=== PATIENT | female | born 1930 | race Caucasian/White ===

== ENCOUNTER → 2017-06-19 | Outpatient (CLI) | payer MEDICARE ==
--- NOTE | 2017-06-19 13:47 | KCIC ---
Examination: Ultrasound kidneys HISTORY: History of chronic kidney disease stage IV COMPARISON: None available FINDINGS: The right kidney measures 8.1 x 4.8 x 4.2 cm The left kidney measures 8.9 x 4.1 x 3.8 cm In the left kidney, there is a 2.2 cm hyperechoic focus identified in the lateral inferior left kidney without significant vascular flow could be extension of renal medulla into the cortex or a angiomyolipoma or a hyperechoic lesion. Urinary bladder is mildly distended IMPRESSION: 1. No evidence of hydronephrosis. 2. 2.2 cm hyperechogenicity identified in the inferior aspect of the left kidney could be extension of the renal medulla to the cortex or a angiomyolipoma or a hyperechoic lesion. Recommend CT without and with IV contrast if clinically feasible. If CT cannot be performed with IV contrast, consider follow-up ultrasound to document stability. Electronically signed by: Suraj Ford MD (06/19/2017 1:44 PM) [id number]
== END | disposition home or self-care (01) ==
LOC: KCIC US 11:03
PROVIDERS: ATTEND Internal Medicine Nephrology
DX: N18.4 Chronic kidney disease, stage 4 (severe) (principal)
CPT/HCPCS: 76770

== ENCOUNTER 2018-11-15 06:34 | Emergency (ER) | payer MEDICARE ==
[~2018-11-15] VITALS: Ht 165.1 cm; Wt 50.8 kg
[2018-11-15] MEDS ORDERED: ONDANSETRON PF 4 MG/2 ML VIAL. IV ONE (07:00)
[2018-11-15] MEDS ORDERED: IV NORMAL SALINE 1000ML BAG 1,000 ML IV SCH (07:00)
[2018-11-15 07:52] LABS: BASO % 0 % (0-3); EOS % 0 % (0-3); HEMATOCRIT 43.9 % (36.0-47.0); HEMOGLOBIN 14.3 g/dL (12.0-15.5); LYMPH # 0.4 x10^3/uL (1.0-4.8); LYMPH % 7 % (24-48); MEAN CORPUSCULAR HEMOGLOBIN 26 pg (25-35); MEAN CORPUSCULAR HGB CONC 33 g/dL (31-37); MEAN CORPUSCULAR VOLUME 81 fL (79-100); MONO # 0.3 x10^3/uL (0.0-1.1); MONO % 6 % (0-9); NEUT # 5.2 x10^3uL (1.8-7.7); NEUT % 88 % (31-73); PLATELET COUNT 179 x10^3/uL (140-400); RED BLOOD COUNT 5.46 x10^6/uL (3.50-5.40); RED CELL DISTRIBUTION WIDTH 14.5 % (11.5-14.5); WHITE BLOOD COUNT 5.9 x10^3/uL (4.0-11.0)
[2018-11-15 08:03] LABS: CALCIUM 9.1 mg/dL (8.5-10.1); CREATININE 0.8 mg/dL (0.6-1.0); GFR 67.7; POTASSIUM 3.9 mmol/L (3.5-5.1)
[2018-11-15 08:15] LABS: ALBUMIN 3.8 g/dL (3.4-5.0); ALBUMIN/GLOBULIN RATIO 1.2 (1.0-1.7); TOTAL BILIRUBIN 0.7 mg/dL (0.2-1.0); TOTAL PROTEIN 7.1 g/dL (6.4-8.2)
[2018-11-15 08:37] LABS: BILIRUBIN,URINE SMALL (NEG); CLARITY,URINE CLOUDY; COLOR,URINE YELLOW; NITRITE,URINE POSITIVE (NEG); PROTEIN,URINE 30 mg/dL (NEG-TRACE); UROBILINOGEN,URINE 0.2 mg/dL (0.2 mg/dL)
[2018-11-15 08:44] LABS: BACTERIA,URINE MANY /HPF (0-FEW)
[2018-11-15 08:45] LABS: WBC,URINE >40 /HPF (0-4)
[2018-11-15 08:50] LABS: % ATYL 1 % (0-0); % LYMPHS 10 % (24-48); % MONOS 4 % (0-10); % SEGS 85 % (35-66); PLT ESTIMATE ADEQUATE (ADEQUATE); TOXIC VACUOLATION SLIGHT
[2018-11-15] MEDS ORDERED: cefTRIAXone IV Push 1 GM VIAL. IVP ONE (09:00)
[2018-11-15] MEDS ORDERED: DIPHENOXYLATE/ATROPINE TABLET. PO ONE (09:15)
[2018-11-15 09:30] VITALS: BP 156/80
[2018-11-15] MEDS ORDERED: ONDA4TAB7 PO (10:25)
[2018-11-15] MEDS ORDERED: NITR100C62 PO (10:25)
[2018-11-15] MEDS ORDERED: DIPH1TAB PO (10:25)
--- NOTE | 2018-11-15 10:25 | PHYS DOC ---
Past Medical History Past Medical History: GERD, Hypertension Additional Past Medical Histor: NEUROPATHY, RLS Past Surgical History: No Surgical History Alcohol Use: None Drug Use: None Adult General Chief Complaint Chief Complaint: ABDOMINAL PAIN HPI HPI Patient is an 87-year-old female who presents with complaint of nausea with vomiting and diarrhea that started on Sunday. Patient states that symptoms have just gotten to the point where she is feeling very weak and she states that she is not able to keep any food or fluids down. She also states that she has had a little bit of lower abdominal discomfort but it is mild. She does not believe that she has been running a fever. She denies any chest pain or shortness of breath. She also denies any lower back pain. She states the symptoms are worsened with eating or drinking. Review of Systems Review of Systems Constitutional: Denies fever or chills [] Respiratory: Denies cough or shortness of breath [] Cardiovascular: No additional information not addressed in HPI [] GI: Complains of lower abdominal discomfort with nausea, vomiting and diarrhea [ ] : Denies dysuria or hematuria [] Musculoskeletal: Denies back pain or joint pain [] All other systems were reviewed and found to be within normal limits, except as documented in this note. Current Medications Current Medications Current Medications Medications (Trade) Dose Ordered Sig/Glen Start Time Stop Time Status Last Admin Dose Admin Ceftriaxone Sodium (Rocephin) 1 gm 1X ONCE 11/15/18 09:00 11/15/18 09:05 DC 11/15/18 09:45 1 GM Diphenoxylate HCl/ Atropine (Lomotil) 2 tab 1X ONCE 11/15/18 09:15 11/15/18 09:16 DC 11/15/18 09:44 2 TAB Ondansetron HCl (Zofran) 4 mg 1X ONCE 11/15/18 07:00 11/15/18 07:01 DC 11/15/18 07:29 4 MG Sodium Chloride 1,000 ml @ 1,000 mls/hr Q1H 11/15/18 07:00 11/15/18 07:59 DC 11/15/18 07:00 1,000 MLS/HR Allergies Allergies Allergies Coded Allergies Type Severity Reaction Last Updated Verified Sulfa (Sulfonamide Antibiotics) Allergy Unknown 11/15/18 Yes codeine Allergy Unknown 11/15/18 Yes metronidazole Allergy Unknown 11/15/18 Yes Physical Exam Physical Exam Constitutional: Well developed, well nourished, no acute distress, non-toxic appearance. [] HENT: Normocephalic, atraumatic, bilateral external ears normal, oropharynx dry , no oral exudates, nose normal. [] Eyes: PERRLA, EOMI, conjunctiva normal, no discharge. [] Neck: Normal range of motion, no tenderness, supple, no stridor. [] Cardiovascular: Regular rate and rhythm [] Lungs & Thorax: Bilateral breath sounds clear to auscultation [] Abdomen: Bowel sounds normal, soft, no tenderness. [] Skin: Warm, dry, no erythema, no rash. [] Extremities: No tenderness, no cyanosis, no clubbing, ROM intact, no edema. [] Neurologic: Alert and oriented X 3, no focal deficits noted. [] Current Patient Data Vital Signs Vital Signs Date Time Temp Pulse Resp B/P (MAP) Pulse Ox O2 Delivery O2 Flow Rate FiO2 11/15/18 09:30 102 156/80 (105) 96 Room Air 11/15/18 06:47 98.0 18 98.0 Lab Values Laboratory Tests Test 11/15/18 07:40 11/15/18 08:25 White Blood Count 5.9 x10^3/uL (4.0-11.0) Red Blood Count 5.46 x10^6/uL (3.50-5.40) H Hemoglobin 14.3 g/dL (12.0-15.5) Hematocrit 43.9 % (36.0-47.0) Mean Corpuscular Volume 81 fL (79-100) Mean Corpuscular Hemoglobin 26 pg (25-35) Mean Corpuscular Hemoglobin Concent 33 g/dL (31-37) Red Cell Distribution Width 14.5 % (11.5-14.5) Platelet Count 179 x10^3/uL (140-400) Neutrophils (%) (Auto) 88 % (31-73) H Lymphocytes (%) (Auto) 7 % (24-48) L Monocytes (%) (Auto) 6 % (0-9) Eosinophils (%) (Auto) 0 % (0-3) Basophils (%) (Auto) 0 % (0-3) Neutrophils # (Auto) 5.2 x10^3uL (1.8-7.7) Lymphocytes # (Auto) 0.4 x10^3/uL (1.0-4.8) L Monocytes # (Auto) 0.3 x10^3/uL (0.0-1.1) Eosinophils # (Auto) 0.0 x10^3/uL (0.0-0.7) Basophils # (Auto) 0.0 x10^3/uL (0.0-0.2) Segmented Neutrophils % 85 % (35-66) H Lymphocytes % 10 % (24-48) L Atypical Lymphocytes % (Manual) 1 % (0-0) H Monocytes % 4 % (0-10) Toxic Vacuolation Slight Platelet Estimate Adequate (ADEQUATE) Sodium Level 143 mmol/L (136-145) Potassium Level 3.9 mmol/L (3.5-5.1) Chloride Level 103 mmol/L (98-107) Carbon Dioxide Level 28 mmol/L (21-32) Anion Gap 12 (6-14) Blood Urea Nitrogen 15 mg/dL (7-20) Creatinine 0.8 mg/dL (0.6-1.0) Estimated GFR (Cockcroft-Gault) 67.7 BUN/Creatinine Ratio 19 (6-20) Glucose Level 115 mg/dL (70-99) H Calcium Level 9.1 mg/dL (8.5-10.1) Total Bilirubin 0.7 mg/dL (0.2-1.0) Aspartate Amino Transferase (AST) 13 U/L (15-37) L Alanine Aminotransferase (ALT) 12 U/L (14-59) L Alkaline Phosphatase 77 U/L (46-116) Total Protein 7.1 g/dL (6.4-8.2) Albumin 3.8 g/dL (3.4-5.0) Albumin/Globulin Ratio 1.2 (1.0-1.7) Lipase 50 U/L (73-393) L Urine Collection Type Unknown Urine Color Yellow Urine Clarity Cloudy Urine pH 6.0 Urine Specific Blount 1.020 Urine Protein 30 mg/dL (NEG-TRACE) Urine Glucose (UA) Negative mg/dL (NEG) Urine Ketones (Stick) Trace mg/dL (NEG) Urine Blood Moderate (NEG) Urine Nitrite Positive (NEG) Urine Bilirubin Small (NEG) Urine Urobilinogen Dipstick 0.2 mg/dL (0.2 mg/dL) Urine Leukocyte Esterase Large (NEG) Urine RBC 3-5 /HPF (0-2) Urine WBC >40 /HPF (0-4) Urine Transitional Epithelial Cells Few /LPF Urine Renal Epithelial Cells Occ /LPF Urine Bacteria Many /HPF (0-FEW) Laboratory Tests 11/15/18 07:40 Laboratory Tests 11/15/18 07:40 EKG EKG [] Radiology/Procedures Radiology/Procedures [] Course & Med Decision Making Course & Med Decision Making Pertinent Labs and Imaging studies reviewed. (See chart for details) [] Dragon Disclaimer Dragon Disclaimer This electronic medical record was generated, in whole or in part, using a voice recognition dictation system. Departure Departure Impression: Primary Impression: UTI (urinary tract infection) Additional Impression: Gastroenteritis Disposition: HOME, SELF-CARE Condition: STABLE Referrals: BETSEY DA SILVA MD (PCP) Patient Instructions: Urinary Tract Infection, Viral Gastroenteritis Scripts Diphenoxylate Hcl/Atropine (LOMOTIL TABLET) 1 Each Tablet 1 TAB PO TID PRN for DIARRHEA, #12 TAB Prov: MIKAEL CEBALLOS Jr. DO 11/15/18 Ondansetron Hcl (ZOFRAN) 4 Mg Tablet 4 MG PO PRN TID PRN for NAUSEA, #15 nausea/vomiting Prov: MIKAEL CEBALLOS Jr. DO 11/15/18 Nitrofurantoin Monohyd/M-Cryst (MACROBID 100 MG CAPSULE) 100 Mg Capsule 1 CAP PO BID, #14 CAP Prov: MIKAEL CEBALLOS Jr. DO 11/15/18 Problem Qualifiers Primary Impression: UTI (urinary tract infection) Urinary tract infection type: site unspecified Hematuria presence: without hematuria Qualified Codes: N39.0 - Urinary tract infection, site not specified MIKAEL CEBALLOS Jr. DO Nov 15, 2018 10:25
== END 2018-11-15 11:17 | disposition home or self-care (01) ==
LOC: ER 06:34
DX: K52.9 Noninfective gastroenteritis and colitis, unspecified (principal); N39.0 Urinary tract infection, site not specified; I10 Essential (primary) hypertension; K21.9 Gastro-esophageal reflux disease without esophagitis; Z88.2 Allergy status to sulfonamides; Z88.5 Allergy status to narcotic agent; Z88.8 Allergy status to other drugs, medicaments and biological substances
CPT/HCPCS: 36415; 80053; 81001; 83690; 85007; 85025; 87086; 96361; 96374; 96375; 99283; J0696; J2405; J7030

== ENCOUNTER 2018-12-26 16:55 | Inpatient (IN) | payer MEDICARE, OTHER ==
[~2018-12-26] VITALS: Ht 165.1 cm; Wt 48.8 kg
[~2018-12-26 16:55] MED LIST: DIPH1TAB PO; NITR100C62 PO; ONDA4TAB7 PO
[2018-12-26] MEDS ORDERED: IV NORMAL SALINE 1000ML BAG 1,000 ML IV ONE ×2 (17:15→22:00)
[2018-12-26] MEDS ORDERED: FAMOTIDINE 20 MG/2 ML VIAL IVP ONE (17:15)
[2018-12-26] MEDS ORDERED: ONDANSETRON PF 4 MG/2 ML VIAL. IV ONE (17:15)
[2018-12-26] MEDS ORDERED: IOHEXOL 300 MG/ML 100ML VIAL. IV ONE (17:30)
[2018-12-26 17:39] LABS: BASO % 1 % (0-3); EOS % 0 % (0-3); HEMATOCRIT 38.2 % (36.0-47.0); HEMOGLOBIN 12.3 g/dL (12.0-15.5); LYMPH % 12 % (24-48); MEAN CORPUSCULAR HEMOGLOBIN 26 pg (25-35); MEAN CORPUSCULAR HGB CONC 32 g/dL (31-37); MEAN CORPUSCULAR VOLUME 81 fL (79-100); MONO # 0.5 x10^3/uL (0.0-1.1); MONO % 6 % (0-9); NEUT # 6.8 x10^3uL (1.8-7.7); NEUT % 81 % (31-73); PLATELET COUNT 197 x10^3/uL (140-400); RED BLOOD COUNT 4.71 x10^6/uL (3.50-5.40); RED CELL DISTRIBUTION WIDTH 15.3 % (11.5-14.5); WHITE BLOOD COUNT 8.4 x10^3/uL (4.0-11.0)
[2018-12-26 17:50] LABS: CALCIUM 8.7 mg/dL (8.5-10.1); CREATININE 0.8 mg/dL (0.6-1.0); GFR 67.5; POTASSIUM 3.7 mmol/L (3.5-5.1)
[2018-12-26 17:56] LABS: ALBUMIN 3.5 g/dL (3.4-5.0); ALBUMIN/GLOBULIN RATIO 1.2 (1.0-1.7); MAGNESIUM 1.8 mg/dL (1.8-2.4); PROTHROMBIN TIME PATIENT 13.5 SEC (11.7-14.0); TOTAL BILIRUBIN 0.5 mg/dL (0.2-1.0); TOTAL PROTEIN 6.5 g/dL (6.4-8.2)
--- NOTE | 2018-12-26 18:18 | PHYS DOC ---
Past Medical History Past Medical History: GERD, Hypertension Additional Past Medical Histor: NEUROPATHY, RLS Past Surgical History: No Surgical History Alcohol Use: None Drug Use: None Adult General Chief Complaint Chief Complaint: NAUSEA/VOMITING/DIARRHA HPI HPI Patient is a 88 year old female with history of hypertension, acid reflex, who presents to the ED today complaining of nausea, vomiting, diarrhea and generalized weakness for 3 days. Patient denies any hematemesis or melena. Denies any fever. She states her abdomen is soft from the vomiting. Review of Systems Review of Systems Constitutional: Reports generalized weakness. Denies fever or chills [] Eyes: Denies change in visual acuity, redness, or eye pain [] HENT: Denies nasal congestion or sore throat [] Respiratory: Denies cough or shortness of breath [] Cardiovascular: No additional information not addressed in HPI [] GI: Reports nausea, vomiting, diarrhea, abdominal soreness. : Denies dysuria or hematuria [] Musculoskeletal: Denies back pain or joint pain [] Integument: Denies rash or skin lesions [] Neurologic: Denies headache, focal weakness or sensory changes [] All other systems were reviewed and found to be within normal limits, except as documented in this note. Current Medications Current Medications Current Medications Medications (Trade) Dose Ordered Sig/Glen Start Time Stop Time Status Last Admin Dose Admin Ciprofloxacin/ Dextrose 200 ml @ 200 mls/hr 1X ONCE 12/26/18 20:15 12/26/18 21:14 DC 12/26/18 21:16 200 MLS/HR Famotidine (Pepcid Vial) 20 mg 1X ONCE 12/26/18 17:15 12/26/18 17:16 DC 12/26/18 19:07 20 MG Iohexol (Omnipaque 300 Mg/ml) 75 ml 1X ONCE 12/26/18 17:30 12/26/18 17:31 DC 12/26/18 17:30 75 ML Ondansetron HCl (Zofran) 4 mg 1X ONCE 12/26/18 17:15 12/26/18 17:16 DC 12/26/18 19:07 4 MG Sodium Chloride 1,000 ml @ 1,000 mls/hr 1X ONCE 12/26/18 17:15 12/26/18 18:14 DC 12/26/18 19:07 1,000 MLS/HR Allergies Allergies Allergies Coded Allergies Type Severity Reaction Last Updated Verified Sulfa (Sulfonamide Antibiotics) Allergy Unknown 11/15/18 Yes codeine Allergy Unknown 11/15/18 Yes metronidazole Allergy Unknown 11/15/18 Yes Physical Exam Physical Exam Constitutional: Thin and fragile appearing patient no acute distress, non-toxic appearance. [] HENT: Normocephalic, atraumatic, bilateral external ears normal, oropharynx moist, no oral exudates, nose normal. [] Eyes: PERRLA, EOMI, conjunctiva normal, no discharge. [] Neck: Normal range of motion, no tenderness, supple, no stridor. [] Cardiovascular:Heart rate regular rhythm, no murmur [] Lungs & Thorax: Bilateral breath sounds clear to auscultation [] Abdomen: Bowel sounds normal, soft, no tenderness, no masses, no pulsatile masses. [] Skin: Warm, dry, no erythema, no rash. [] Back: No tenderness, no CVA tenderness. [] Extremities: No tenderness, no cyanosis, no clubbing, ROM intact, no edema. [] Neurologic: Alert and oriented X 3, normal motor function, normal sensory function, no focal deficits noted. Cranial nerves II through XII intact. Psychologic: Affect normal, judgement normal, mood normal. [] Current Patient Data Vital Signs Vital Signs Date Time Temp Pulse Resp B/P (MAP) Pulse Ox O2 Delivery O2 Flow Rate FiO2 12/26/18 19:00 98.6 96 20 140/76 (97) 94 Room Air 98.6 Lab Values Laboratory Tests Test 12/26/18 17:30 12/26/18 17:50 12/26/18 19:03 White Blood Count 8.4 x10^3/uL (4.0-11.0) Red Blood Count 4.71 x10^6/uL (3.50-5.40) Hemoglobin 12.3 g/dL (12.0-15.5) Hematocrit 38.2 % (36.0-47.0) Mean Corpuscular Volume 81 fL (79-100) Mean Corpuscular Hemoglobin 26 pg (25-35) Mean Corpuscular Hemoglobin Concent 32 g/dL (31-37) Red Cell Distribution Width 15.3 % (11.5-14.5) H Platelet Count 197 x10^3/uL (140-400) Neutrophils (%) (Auto) 81 % (31-73) H Lymphocytes (%) (Auto) 12 % (24-48) L Monocytes (%) (Auto) 6 % (0-9) Eosinophils (%) (Auto) 0 % (0-3) Basophils (%) (Auto) 1 % (0-3) Neutrophils # (Auto) 6.8 x10^3uL (1.8-7.7) Lymphocytes # (Auto) 1.0 x10^3/uL (1.0-4.8) Monocytes # (Auto) 0.5 x10^3/uL (0.0-1.1) Eosinophils # (Auto) 0.0 x10^3/uL (0.0-0.7) Basophils # (Auto) 0.0 x10^3/uL (0.0-0.2) Prothrombin Time 13.5 SEC (11.7-14.0) Prothrombin Time INR 1.1 (0.8-1.1) Sodium Level 140 mmol/L (136-145) Potassium Level 3.7 mmol/L (3.5-5.1) Chloride Level 103 mmol/L (98-107) Carbon Dioxide Level 28 mmol/L (21-32) Anion Gap 9 (6-14) Blood Urea Nitrogen 7 mg/dL (7-20) Creatinine 0.8 mg/dL (0.6-1.0) Estimated GFR (Cockcroft-Gault) 67.5 BUN/Creatinine Ratio 9 (6-20) Glucose Level 130 mg/dL (70-99) H Calcium Level 8.7 mg/dL (8.5-10.1) Magnesium Level 1.8 mg/dL (1.8-2.4) Total Bilirubin 0.5 mg/dL (0.2-1.0) Aspartate Amino Transferase (AST) 19 U/L (15-37) Alanine Aminotransferase (ALT) 14 U/L (14-59) Alkaline Phosphatase 69 U/L (46-116) Creatine Kinase 75 U/L (26-192) Creatine Kinase MB (Mass) 3.0 ng/mL (0.0-3.6) Creatine Kinase MB Relative Index 4.0 % (0-4) Troponin I Quantitative 0.021 ng/mL (0.000-0.055) GW-Bxs-[id number]-Type Natriuretic Peptide 4872 pg/mL (0-449) H Total Protein 6.5 g/dL (6.4-8.2) Albumin 3.5 g/dL (3.4-5.0) Albumin/Globulin Ratio 1.2 (1.0-1.7) Lipase 57 U/L (73-393) L Thyroid Stimulating Hormone (TSH) 1.634 uIU/mL (0.358-3.74) Urine Collection Type Unknown Urine Color Yellow Urine Clarity Clear Urine pH 6.0 Urine Specific Mcintosh <=1.005 Urine Protein Negative mg/dL (NEG-TRACE) Urine Glucose (UA) Negative mg/dL (NEG) Urine Ketones (Stick) Negative mg/dL (NEG) Urine Blood Small (NEG) Urine Nitrite Negative (NEG) Urine Bilirubin Negative (NEG) Urine Urobilinogen Dipstick 0.2 mg/dL (0.2 mg/dL) Urine Leukocyte Esterase Moderate (NEG) Urine RBC 3-5 /HPF (0-2) Urine WBC 20-40 /HPF (0-4) Urine Squamous Epithelial Cells Occ /LPF Urine Bacteria Few /HPF (0-FEW) Urine Opiates Screen Pos (NEG) Urine Methadone Screen Neg (NEG) Urine Barbiturates Neg (NEG) Urine Phencyclidine Screen Neg (NEG) Urine Amphetamine/Methamphetamine Neg (NEG) Urine Benzodiazepines Screen Neg (NEG) Urine Cocaine Screen Neg (NEG) Urine Cannabinoids Screen Neg (NEG) Urine Ethyl Alcohol Neg (NEG) Influenza Type A Antigen Negative (NEGATIVE) Influenza Type B Antigen Negative (NEGATIVE) Laboratory Tests 12/26/18 17:30 Laboratory Tests 12/26/18 17:30 EKG EKG [] Radiology/Procedures Radiology/Procedures [] Course & Med Decision Making Course & Med Decision Making Pertinent Labs and Imaging studies reviewed. (See chart for details) This is a 88-year-old female patient presenting to the ED today with complaints of nausea, vomiting, diarrhea, abdominal soreness, symptoms began 3 days ago. CBC, CMP, lipase, no acute findings. Urine analysis is noted for UTI, CT noted for enteritis. Patient was started on Cipro in the ED. We did attempt to get her up and moving, she appears weak and very fragile. Consulted with Dr. Oconnor to accepted patient for admission. Routine consult placed for GI. Dragon Disclaimer Dragon Disclaimer This electronic medical record was generated, in whole or in part, using a voice recognition dictation system. Departure Departure Impression: Primary Impression: Urinary tract infection Additional Impression: Enteritis Disposition: 09 ADMITTED INPATIENT Condition: STABLE Referrals: BETSEY DA SILVA MD (PCP) Problem Qualifiers Primary Impression: Urinary tract infection Urinary tract infection type: site unspecified Hematuria presence: without hematuria Qualified Codes: N39.0 - Urinary tract infection, site not specified JEFRY BHARDWAJ MEDICAL REPRESENTATIVE Dec 26, 2018 18:18
[2018-12-26 18:23] LABS: BILIRUBIN,URINE NEGATIVE (NEG); CLARITY,URINE CLEAR; COLOR,URINE YELLOW; NITRITE,URINE NEGATIVE (NEG); PROTEIN,URINE NEGATIVE (NEG-TRACE); UROBILINOGEN,URINE 0.2 mg/dL (0.2 mg/dL)
[2018-12-26 18:30] LABS: BACTERIA,URINE FEW /HPF (0-FEW); BARBITURATES NEG (NEG); BENZODIAZEPINES NEG (NEG); CANNABINOIDS NEG (NEG); COCAINE NEG (NEG); METHADONE NEG (NEG); OPIATES POS (NEG); PHENCYCLIDINE NEG (NEG); WBC,URINE 20-40 /HPF (0-4)
[2018-12-26 18:31] LABS: AMPHETAMINE/METHAMPHETAMINE NEG (NEG)
[2018-12-26 18:32] LABS: SQUAMOUS EPITHELIAL CELL,UR OCC /LPF
--- NOTE | 2018-12-26 18:33 | RAD ---
CT ABD PELV W/ IV CONTRST ONLY Indication: Nausea, vomiting, diarrhea Technique: Postcontrast CT imaging was performed of the abdomen pelvis, multiplanar reconstruction images submitted. No oral contrast was given. One or more of the following individualized dose reduction techniques were utilized for this examination: 1. Automated exposure control 2. Adjustment of the mA and/or kV according to patient size 3. Use of iterative reconstruction technique. Comparison: None Findings: There is no abnormality of the limited visualized lung bases. There is elevation of the right hemidiaphragm. There is coronary calcification. There has been cholecystectomy. There are splenic and hepatic granulomas. Pancreas is atrophic. There is atherosclerotic calcification abdominal and thoracic aorta as well as iliac arteries. There is no adrenal nodularity. There is bilateral renal pelviectasis, right greater than left. There is 1.3 cm hypodense lesion of the inferior left kidney, density measurements likely component of fat. Accurate evaluation of bowel is limited with bowel oral contrast. There is no bowel dilatation, free air, free fluid. There is scattered small bowel wall thickening. Appendix cannot be confidently identified. There is lumbar levoscoliosis. There is multilevel advanced lumbar degenerative disc disease greatest L2-3 to L5-S1, multilevel lumbar spondylosis and facet degenerative change. There is mild distention of urinary bladder. IMPRESSION: 1. There is scattered small bowel wall thickening, evidence of enteritis. There is no free fluid or free air. There is no evidence of bowel obstruction. Evaluation of bowel is limited without oral contrast. 2. 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 3. There is coronary calcification. Electronically signed by: Soy Toney MD (12/26/2018 6:30 PM) [facility]
[2018-12-26 19:00] VITALS: BP 140/76
[2018-12-26 20:08] LABS: INFLUENZA A PATIENT NEGATIVE (NEGATIVE); INFLUENZA B PATIENT NEGATIVE (NEGATIVE)
[2018-12-26] MEDS ORDERED: CIPROFLOXACIN 400MG PREMIX 200 ML IV ONE (20:15)
[2018-12-26] MEDS ORDERED: ONDANSETRON PF 4 MG/2 ML VIAL. IV PRN ×2 (21:30→22:00)
[2018-12-26] MEDS: fentaNYL PF VIAL 100 MCG/2 ML VIAL IV PRN (22:35)
[2018-12-26 23:00] VITALS: BP 140/76
[2018-12-27] MEDS ORDERED: POLY2500 PO (02:14)
[2018-12-27] MEDS ORDERED: LOSA-73 PO (02:14)
[2018-12-27] MEDS ORDERED: RANI150T2 PO (02:14)
[2018-12-27] MEDS ORDERED: GABA300C18 PO (02:14)
[2018-12-27] MEDS ORDERED: CARB1TAB2 PO (02:14)
[2018-12-27] MEDS ORDERED: SIMV40TA3 PO (02:14)
[2018-12-27] MEDS ORDERED: GABA600T7 PO (02:14)
[2018-12-27] MEDS ORDERED: CLON0.5T11 PO (02:14)
[2018-12-27] MEDS ORDERED: HYDR-2765 PO (02:14)
[2018-12-27] MEDS ORDERED: METO25TA4 PO (02:14)
[2018-12-27] MEDS: fentaNYL PF VIAL 100 MCG/2 ML VIAL IV PRN (02:35)
[2018-12-27 03:00] VITALS: BP 136/75
[2018-12-27] MEDS: clonazePAM 0.5 MG TABLET PO SCH ×2 (04:08→17:15)
[2018-12-27] MEDS: GABAPENTIN 300 MG CAPSULE. PO SCH ×4 (04:09→20:40)
[2018-12-27] MEDS: HYDROcodone/APAP 7.5/325MG 1 TAB TABLET PO PRN ×4 (04:09→19:28)
[2018-12-27 05:37] LABS: BASO % 0 % (0-3); EOS % 0 % (0-3); HEMOGLOBIN 11.5 g/dL (12.0-15.5); LYMPH # 0.9 x10^3/uL (1.0-4.8); LYMPH % 13 % (24-48); MEAN CORPUSCULAR HEMOGLOBIN 27 pg (25-35); MEAN CORPUSCULAR HGB CONC 33 g/dL (31-37); MEAN CORPUSCULAR VOLUME 81 fL (79-100); MONO # 0.6 x10^3/uL (0.0-1.1); MONO % 9 % (0-9); NEUT # 5.4 x10^3uL (1.8-7.7); NEUT % 78 % (31-73); PLATELET COUNT 177 x10^3/uL (140-400); RED CELL DISTRIBUTION WIDTH 15.5 % (11.5-14.5); WHITE BLOOD COUNT 6.9 x10^3/uL (4.0-11.0)
[2018-12-27 06:01] LABS: CALCIUM 8.1 mg/dL (8.5-10.1); CREATININE 0.7 mg/dL (0.6-1.0); GFR 78.8; POTASSIUM 3.4 mmol/L (3.5-5.1)
[2018-12-27 07:00] VITALS: BP 126/65
--- NOTE | 2018-12-27 08:12 | RAD ---
PROCEDURE: PORTABLE CHEST 1V CLINICAL INDICATION: ER PATIENT. WEAKNESS. HX HTN. PRIOR XRAY. COMPARISON: 11/06/2012 FINDINGS: No pneumothorax identified. Cardiac and mediastinal contours unremarkable. No pulmonary consolidation or acute airspace disease. No acute osseous abnormalities identified. Stable elevation of right hemidiaphragm. IMPRESSION: No pulmonary consolidation or acute airspace disease. Electronically signed by: Thong Interiano DO (12/27/2018 8:08 AM) [facility]
--- NOTE | 2018-12-27 08:13 | PDOC1 ---
History and Physical Date of Admission Date of Admission DATE: 12/27/18 TIME: 08:11 Identification/Chief Complaint Chief Complaint Abdominal pain Malaise Source Source: Chart review, Patient History of Present Illness History of Present Illness 88 year old female with history of hypertension, acid reflex, who presents to the ED from assisted living complaining of nausea, vomiting, diarrhea and generalized weakness for 3 days. Patient denies any hematemesis or melena. Denies any fever or recent sick contacts. Her diarrhea has been very watery. States she has been eating stuffed dates her daughter gave her. CT noted possible enteritis and also pancreatic atrophy, splenic and hepatic granulomas, and atherosclerotic calcifications. Wants to eat and get rid of her IV, but she has 2 episodes of diarrhea that are foul smelling while I have been rounding on the floor. K of 3.4 Past Medical History Cardiovascular: HTN Pulmonary: No pertinent hx GI: GERD Heme/Onc: No pertinent hx Hepatobiliary: No pertinent hx Psych: No pertinent hx Musculoskeletal: low back pain Rheumatologic: No pertinent hx Infectious disease: No pertinent hx ENT: No pertinent hx Renal/: No pertinent hx Endocrine: No pertinent hx Dermatology: No pertinent hx Past Surgical History Past Surgical History: No pertinent history Family History Family History: Family History Unknown Social History Smoke: No ALCOHOL: none Drugs: None Current Problem List Problem List Problems Medical Problems: (1) Enteritis Status: Acute (2) Urinary tract infection Status: Acute Current Medications Current Medications Current Medications Sodium Chloride 1,000 ml @ 1,000 mls/hr 1X ONCE IV Last administered on at 19:07; Start 12/26/18 at 17:15; Stop 12/26/18 at 18:14; Status DC Famotidine (Pepcid Vial) 20 mg 1X ONCE IVP Last administered on 12/26/18at 19: 07; Start 12/26/18 at 17:15; Stop 12/26/18 at 17:16; Status DC Ondansetron HCl (Zofran) 4 mg 1X ONCE IV Last administered on 12/26/18at 19:07 ; Start 12/26/18 at 17:15; Stop 12/26/18 at 17:16; Status DC Iohexol (Omnipaque 300 Mg/ml) 75 ml 1X ONCE IV Last administered on 12/26/18at 17:30; Start 12/26/18 at 17:30; Stop 12/26/18 at 17:31; Status DC Ciprofloxacin/ Dextrose 200 ml @ 200 mls/hr 1X ONCE IV Last administered on at 21:16; Start 12/26/18 at 20:15; Stop 12/26/18 at 21:14; Status DC Ondansetron HCl (Zofran) 4 mg PRN Q6HRS PRN IV NAUSEA/VOMITING; Start 12/26/18 at 21:30 Ondansetron HCl (Zofran) 4 mg PRN Q8HRS PRN IV NAUSEA/VOMITING; Start 12/26/18 at 22:00; Stop 12/27/18 at 21:59 Fentanyl Citrate (Fentanyl 2ml Vial) 50 mcg PRN Q1HR PRN IV PAIN Last administered on 12/27/18at 02:35; Start 12/26/18 at 22:00; Stop 12/27/18 at 21:59 Sodium Chloride 1,000 ml @ 75 mls/hr 1X ONCE IV Last administered on at 22:36; Start 12/26/18 at 22:00; Stop 12/27/18 at 11:19 Clonazepam (KlonoPIN) 0.5 mg DAILYWSUP PO Last administered on 12/27/18at 04:08 ; Start 12/27/18 at 04:00 Acetaminophen/ Hydrocodone Bitart (Lortab 7.5/325) 1 tab PRN Q4HRS PRN PO PAIN Last administered on 12/27/18at 04:09; Start 12/27/18 at 04:00 Gabapentin (Neurontin) 600 mg HS PO Last administered on 12/27/18at 04:09; Start 12/27/18 at 04:00 Active Scripts Active Reported Hydrocodone-Apap 7.5-325 (Hydrocodone Bit/Acetaminophen) 1 Tab Tablet 1 Tab PO PRN Q4HRS PRN Simvastatin 40 Mg Tablet 1 Tab PO QHS Ranitidine Hcl 150 Mg Tablet 2 Tab PO HS Polyethylene Glycol 3350 2,500 Gm Powder 17 Gm PO DAILY Metoprolol Tartrate 25 Mg Tablet 1 Tab PO BID Losartan Potassium 50 Mg Tablet 50 Mg PO DAILY Gabapentin 600 Mg Tablet 600 Mg PO HS Gabapentin (Gabapentin) 300 Mg Capsule 300 Mg PO BIDWBK/STIVEN Clonazepam 0.5 Mg Tablet 1 Tab PO DAILYWSUP Sinemet 25-100 Mg Tablet (Carbidopa/Levodopa) 1 Each Tablet 1 Tab PO BID Allergies Allergies: Coded Allergies: Sulfa (Sulfonamide Antibiotics) (Verified Allergy, Unknown, 11/15/18) codeine (Verified Allergy, Unknown, 11/15/18) metronidazole (Verified Allergy, Unknown, 11/15/18) ROS General: YES: Fatigue, Malaise, Appetite; No: Chills, Night Sweats, Other PSYCHOLOGICAL ROS: YES: Memory difficulties; No: Anxiety, Behavioral Disorder, Concentration difficultie, Decreased libido , Depression, Disorientation, Hallucinations, Hostility, Irritablity, Mood Swings, Obsessive thoughts, Physical abuse, Sexual abuse, Sleep disturbances, Suicidal ideation, Other Eyes: No Blurry vision, No Decreased vision, No Double vision, No Dry eyes, No Excessive tearing, No Eye Pain, No Itchy Eyes, No Loss of vision, No Photophobia , No Scotomata, No Uses contacts, No Uses glasses, No Other HEENT: No: Heacaches, Visual Changes, Hearing change, Nasal congestion, Nasal discharge, Oral lesions, Sinus pain, Sore Throat, Epistaxis, Sneezing, Snoring, Tinnitus, Vertigo, Vocal changes, Other ALLERGY AND IMMUNOLOGY: No: Hives, Insect Bite Sensitivity, Itchy/Watery Eyes, Nasal Congestion, Post Nasal Drip, Seasonal Allergies, Other Hematological and Lymphatic: No: Bleeding Problems, Blood Clots, Blood Transfusions, Brusing, Night Sweats, Pallor, Swollen Lymph Nodes, Other ENDOCRINE: No: Breast Changes, Galactorrhea, Hair Pattern Changes, Hot Flashes , Malaise/lethargy, Mood Swings, Palpitations, Polydipsia/polyuria, Skin Changes , Temperature Intolerance, Unexpected Weight Changes, Other Breast: No New/Changing Breast Lumps, No Nipple changes, No Nipple discharge, No Other Respiratory: No: Cough, Hemoptysis, Orthopnea, Pleuritic Pain, Shortness of breath, SOB with excertion, Sputum Changes, Stridor, Tachypnea, Wheezing, Other Cardiovascular: No Chest Pain, No Palpitations, No Orthopnea, No Paroxysmal Noc. Dyspnea, No Edema, No Lt Headedness, No Other Gastrointestinal: Yes Nausea, Yes Vomiting, Yes Diarrhea; No Abdominal Pain, No Constipation, No Melena, No Hematochezia, No Other Genitourinary: No Dysuria, No Frequency, No Incontinence, No Hematuria, No Retention, No Discharge, No Urgency, No Pain, No Flank Pain, No Other, No , No , No , No , No , No , No Musculoskeletal: No Gait Disturbance, No Joint Pain, No Joint Stiffness, No Joint Swelling, No Muscle Pain, No Muscular Weakness, No Pain In:, No Swelling In:, No Other Neurological: No Behavorial Changes, No Bowel/Bladder ControlChng, No Confusion , No Dizziness, No Gait Disturbance, No Headaches, No Impaired Coord/balance, No Memory Loss, No Numbness/Tingling, No Seizures, No Speech Problems, No Tremors, No Visual Changes, No Weakness, No Other Skin: No Dry Skin, No Eczema, No Hair Changes, No Lumps, No Mole Changes, No Mottling, No Nail Changes, No Pruritus, No Rash, No Skin Lesion Changes, No Other, No Acne Physical Exam General: Alert, Cooperative, No acute distress HEENT: Atraumatic, PERRLA, EOMI, Mucous membr. moist/pink Lungs: Clear to auscultation, Normal air movement Heart: S1S2, RRR, no gallops, no murmurs Abdomen: Normal bowel sounds, Soft, No tenderness, No hepatosplenomegaly, No masses Extremities: No clubbing, No cyanosis, No edema, Normal pulses, No tenderness/ swelling Skin: No rashes, No breakdown, No significant lesion Neuro: Normal gait, Normal speech, Strength at 5/5 X4 ext, Normal tone, Sensation intact, Cranial nerves 3-12 NL, Reflexes 2+ Psych/Mental Status: Mental status NL, Mood NL Vitals Vitals Vital Signs Date Time Temp Pulse Resp B/P (MAP) Pulse Ox O2 Delivery O2 Flow Rate FiO2 12/27/18 05:19 Room Air 12/27/18 03:00 98.4 95 18 136/75 (95) 94 98.4 Labs Labs Laboratory Tests Test 12/26/18 17:30 12/26/18 17:50 12/26/18 19:03 12/27/18 05:20 White Blood Count 8.4 x10^3/uL (4.0-11.0) 6.9 x10^3/uL (4.0-11.0) Red Blood Count 4.71 x10^6/uL (3.50-5.40) 4.30 x10^6/uL (3.50-5.40) Hemoglobin 12.3 g/dL (12.0-15.5) 11.5 g/dL (12.0-15.5) Hematocrit 38.2 % (36.0-47.0) 35.0 % (36.0-47.0) Mean Corpuscular Volume 81 fL (79-100) 81 fL (79-100) Mean Corpuscular Hemoglobin 26 pg (25-35) 27 pg (25-35) Mean Corpuscular Hemoglobin Concent 32 g/dL (31-37) 33 g/dL (31-37) Red Cell Distribution Width 15.3 % (11.5-14.5) 15.5 % (11.5-14.5) Platelet Count 197 x10^3/uL (140-400) 177 x10^3/uL (140-400) Neutrophils (%) (Auto) 81 % (31-73) 78 % (31-73) Lymphocytes (%) (Auto) 12 % (24-48) 13 % (24-48) Monocytes (%) (Auto) 6 % (0-9) 9 % (0-9) Eosinophils (%) (Auto) 0 % (0-3) 0 % (0-3) Basophils (%) (Auto) 1 % (0-3) 0 % (0-3) Neutrophils # (Auto) 6.8 x10^3uL (1.8-7.7) 5.4 x10^3uL (1.8-7.7) Lymphocytes # (Auto) 1.0 x10^3/uL (1.0-4.8) 0.9 x10^3/uL (1.0-4.8) Monocytes # (Auto) 0.5 x10^3/uL (0.0-1.1) 0.6 x10^3/uL (0.0-1.1) Eosinophils # (Auto) 0.0 x10^3/uL (0.0-0.7) 0.0 x10^3/uL (0.0-0.7) Basophils # (Auto) 0.0 x10^3/uL (0.0-0.2) 0.0 x10^3/uL (0.0-0.2) Prothrombin Time 13.5 SEC (11.7-14.0) Prothromb Time International Ratio 1.1 (0.8-1.1) Sodium Level 140 mmol/L (136-145) 146 mmol/L (136-145) Potassium Level 3.7 mmol/L (3.5-5.1) 3.4 mmol/L (3.5-5.1) Chloride Level 103 mmol/L (98-107) 108 mmol/L (98-107) Carbon Dioxide Level 28 mmol/L (21-32) 27 mmol/L (21-32) Anion Gap 9 (6-14) 11 (6-14) Blood Urea Nitrogen 7 mg/dL (7-20) 3 mg/dL (7-20) Creatinine 0.8 mg/dL (0.6-1.0) 0.7 mg/dL (0.6-1.0) Estimated GFR (Cockcroft-Gault) 67.5 78.8 BUN/Creatinine Ratio 9 (6-20) Glucose Level 130 mg/dL (70-99) 100 mg/dL (70-99) Calcium Level 8.7 mg/dL (8.5-10.1) 8.1 mg/dL (8.5-10.1) Magnesium Level 1.8 mg/dL (1.8-2.4) Total Bilirubin 0.5 mg/dL (0.2-1.0) Aspartate Amino Transf (AST/SGOT) 19 U/L (15-37) Alanine Aminotransferase (ALT/SGPT) 14 U/L (14-59) Alkaline Phosphatase 69 U/L (46-116) Creatine Kinase 75 U/L (26-192) Creatine Kinase MB (Mass) 3.0 ng/mL (0.0-3.6) Creatine Kinase MB Relative Index 4.0 % (0-4) Troponin I Quantitative 0.021 ng/mL (0.000-0.055) AR-Wtg-I-Type Natriuretic Peptide 4872 pg/mL (0-449) Total Protein 6.5 g/dL (6.4-8.2) Albumin 3.5 g/dL (3.4-5.0) Albumin/Globulin Ratio 1.2 (1.0-1.7) Lipase 57 U/L (73-393) Thyroid Stimulating Hormone (TSH) 1.634 uIU/mL (0.358-3.74) Urine Collection Type Unknown Urine Color Yellow Urine Clarity Clear Urine pH 6.0 Urine Specific [place] <=1.005 Urine Protein Negative mg/dL (NEG-TRACE) Urine Glucose (UA) Negative mg/dL (NEG) Urine Ketones (Stick) Negative mg/dL (NEG) Urine Blood Small (NEG) Urine Nitrite Negative (NEG) Urine Bilirubin Negative (NEG) Urine Urobilinogen Dipstick 0.2 mg/dL (0.2 mg/dL) Urine Leukocyte Esterase Moderate (NEG) Urine RBC 3-5 /HPF (0-2) Urine WBC 20-40 /HPF (0-4) Urine Squamous Epithelial Cells Occ /LPF Urine Bacteria Few /HPF (0-FEW) Urine Opiates Screen Pos (NEG) Urine Methadone Screen Neg (NEG) Urine Barbiturates Neg (NEG) Urine Phencyclidine Screen Neg (NEG) Urine Amphetamine/Methamphetamine Neg (NEG) Urine Benzodiazepines Screen Neg (NEG) Urine Cocaine Screen Neg (NEG) Urine Cannabinoids Screen Neg (NEG) Urine Ethyl Alcohol Neg (NEG) Influenza Type A Antigen Negative (NEGATIVE) Influenza Type B Antigen Negative (NEGATIVE) Laboratory Tests Test 12/26/18 17:30 12/26/18 17:50 12/26/18 19:03 12/27/18 05:20 White Blood Count 8.4 x10^3/uL (4.0-11.0) 6.9 x10^3/uL (4.0-11.0) Red Blood Count 4.71 x10^6/uL (3.50-5.40) 4.30 x10^6/uL (3.50-5.40) Hemoglobin 12.3 g/dL (12.0-15.5) 11.5 g/dL (12.0-15.5) Hematocrit 38.2 % (36.0-47.0) 35.0 % (36.0-47.0) Mean Corpuscular Volume 81 fL (79-100) 81 fL (79-100) Mean Corpuscular Hemoglobin 26 pg (25-35) 27 pg (25-35) Mean Corpuscular Hemoglobin Concent 32 g/dL (31-37) 33 g/dL (31-37) Red Cell Distribution Width 15.3 % (11.5-14.5) 15.5 % (11.5-14.5) Platelet Count 197 x10^3/uL (140-400) 177 x10^3/uL (140-400) Neutrophils (%) (Auto) 81 % (31-73) 78 % (31-73) Lymphocytes (%) (Auto) 12 % (24-48) 13 % (24-48) Monocytes (%) (Auto) 6 % (0-9) 9 % (0-9) Eosinophils (%) (Auto) 0 % (0-3) 0 % (0-3) Basophils (%) (Auto) 1 % (0-3) 0 % (0-3) Neutrophils # (Auto) 6.8 x10^3uL (1.8-7.7) 5.4 x10^3uL (1.8-7.7) Lymphocytes # (Auto) 1.0 x10^3/uL (1.0-4.8) 0.9 x10^3/uL (1.0-4.8) Monocytes # (Auto) 0.5 x10^3/uL (0.0-1.1) 0.6 x10^3/uL (0.0-1.1) Eosinophils # (Auto) 0.0 x10^3/uL (0.0-0.7) 0.0 x10^3/uL (0.0-0.7) Basophils # (Auto) 0.0 x10^3/uL (0.0-0.2) 0.0 x10^3/uL (0.0-0.2) Prothrombin Time 13.5 SEC (11.7-14.0) Prothromb Time International Ratio 1.1 (0.8-1.1) Sodium Level 140 mmol/L (136-145) 146 mmol/L (136-145) Potassium Level 3.7 mmol/L (3.5-5.1) 3.4 mmol/L (3.5-5.1) Chloride Level 103 mmol/L (98-107) 108 mmol/L (98-107) Carbon Dioxide Level 28 mmol/L (21-32) 27 mmol/L (21-32) Anion Gap 9 (6-14) 11 (6-14) Blood Urea Nitrogen 7 mg/dL (7-20) 3 mg/dL (7-20) Creatinine 0.8 mg/dL (0.6-1.0) 0.7 mg/dL (0.6-1.0) Estimated GFR (Cockcroft-Gault) 67.5 78.8 BUN/Creatinine Ratio 9 (6-20) Glucose Level 130 mg/dL (70-99) 100 mg/dL (70-99) Calcium Level 8.7 mg/dL (8.5-10.1) 8.1 mg/dL (8.5-10.1) Magnesium Level 1.8 mg/dL (1.8-2.4) Total Bilirubin 0.5 mg/dL (0.2-1.0) Aspartate Amino Transf (AST/SGOT) 19 U/L (15-37) Alanine Aminotransferase (ALT/SGPT) 14 U/L (14-59) Alkaline Phosphatase 69 U/L (46-116) Creatine Kinase 75 U/L (26-192) Creatine Kinase MB (Mass) 3.0 ng/mL (0.0-3.6) Creatine Kinase MB Relative Index 4.0 % (0-4) Troponin I Quantitative 0.021 ng/mL (0.000-0.055) JC-Vrf-O-Type Natriuretic Peptide 4872 pg/mL (0-449) Total Protein 6.5 g/dL (6.4-8.2) Albumin 3.5 g/dL (3.4-5.0) Albumin/Globulin Ratio 1.2 (1.0-1.7) Lipase 57 U/L (73-393) Thyroid Stimulating Hormone (TSH) 1.634 uIU/mL (0.358-3.74) Urine Collection Type Unknown Urine Color Yellow Urine Clarity Clear Urine pH 6.0 Urine Specific [place] <=1.005 Urine Protein Negative mg/dL (NEG-TRACE) Urine Glucose (UA) Negative mg/dL (NEG) Urine Ketones (Stick) Negative mg/dL (NEG) Urine Blood Small (NEG) Urine Nitrite Negative (NEG) Urine Bilirubin Negative (NEG) Urine Urobilinogen Dipstick 0.2 mg/dL (0.2 mg/dL) Urine Leukocyte Esterase Moderate (NEG) Urine RBC 3-5 /HPF (0-2) Urine WBC 20-40 /HPF (0-4) Urine Squamous Epithelial Cells Occ /LPF Urine Bacteria Few /HPF (0-FEW) Urine Opiates Screen Pos (NEG) Urine Methadone Screen Neg (NEG) Urine Barbiturates Neg (NEG) Urine Phencyclidine Screen Neg (NEG) Urine Amphetamine/Methamphetamine Neg (NEG) Urine Benzodiazepines Screen Neg (NEG) Urine Cocaine Screen Neg (NEG) Urine Cannabinoids Screen Neg (NEG) Urine Ethyl Alcohol Neg (NEG) Influenza Type A Antigen Negative (NEGATIVE) Influenza Type B Antigen Negative (NEGATIVE) Images Images CT abd/pelvis - 1. There is scattered small bowel wall thickening, evidence of enteritis. There is no free fluid or free air. There is no evidence of bowel obstruction. Evaluation of bowel is limited without oral contrast. 2. 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 3. There is coronary calcification. VTE Prophylaxis Ordered VTE Prophylaxis Devices: Yes VTE Pharmacological Prophylaxi: No Assessment/Plan Assessment/Plan A/P: Vomiting and diarrhea - acute onset, seems to be acute gastroenteritis. CT confirms enteritis. Will get stool culture and c. 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 Likely home in next 24-48 hours, will need to await c. diff BETH GIORDANO MD Dec 27, 2018 08:13
--- NOTE | 2018-12-27 08:42 | EKG ---
[facility] [address] [place] [id number] Test Date: 2018-12-26 Test Time: 18:38:38 Pat Name: BRIDGER MAR Department: Room: [facility] Gender: F Monogram Maker: : [id number] Requested By: JEFRY BHARDWAJ Order Number: [id number] Reading MD: Sammy Quach MD Measurements Intervals [place] Rate: 85 P: 7 VA: 166 QRS: -54 QRSD: 82 T: 111 QT: 392 QTc: 472 Interpretive Statements SINUS RHYTHM PAC'S LAD NON-SPECIFIC ST/T CHANGES Electronically Signed On 12-27-2018 17:28:45 CDT by Sammy Quach MD
[2018-12-27] MEDS ORDERED: POTASSIUM CHLORIDE 20 MEQ TABLET.ER. PO ONE (09:00)
[2018-12-27] MEDS: POLYETHYLENE GLYCOL 3350 17 GM PACKET. PO SCH (09:00)
[2018-12-27] MEDS: LOSARTAN POTASSIUM 50 MG TABLET. PO SCH (09:11)
[2018-12-27] MEDS: CARBIDOPA/LEVODOPA 25/100MG TABLET PO SCH ×2 (09:11→20:40)
[2018-12-27] MEDS: METOPROLOL TART IMMED RELEASE 25 MG TABLET. PO SCH ×2 (09:12→20:41)
--- NOTE | 2018-12-27 10:14 | PDOC2 ---
GI CONSULT Reason For Consult: Enteritis HPI: HPI: 88 y/o female from assisted living. Ill since Sunday w/ vomiting and diarrhea , possibly precipitated by eating stuffed dates her daughter gave her. Vomiting and diarrhea resolved Sunday but felt weak so came to ER. Prior to arrival was drinking Gatorade. Denies chronic issues w/ n/v or diarrhea. Denies hematemesis, hematochezia, and melena. Denies abd pain. Assumes weight loss since Sunday but not before then. H/o GERD controlled w/ ranitidine QD. No dysphagia. Reports normal EGD and colonoscopy a few years ago. S/p cholecystectomy (doesn't remember having stones). No liver, pancreas, or PUD history. No NSAIDs but does take hydrocodone for chronic leg pain which causes constipation which is controlled w/ daily Miralax. CT noted possible enteritis and also pancreatic atrophy, splenic and hepatic granulomas, and atherosclerotic calcifications. Wants to eat and get rid of her IV. PMH: PMH: HTN, ?Parkinson's, GERD, constipation, chronic leg pain, RLS, OA, UTIs, left renal angiomyolipoma hysterectomy, cholecystectomy, cataract removal FH: Family History: No pertinent hx Social History: Smoke: No ALCOHOL: none Drugs: None ROS: GEN: Denies fevers, chills, sweats HEENT: Denies blurred vision, sore throat CV: Denies chest pain RESP: Denies shortness of air, cough GI: Per HPI : Denies hematuria, dysuria ENDO: Denies weight changes NEURO: Denies confusion, dizziness MSK: +weakness +chronic pain SKIN: Denies jaundice, pruritus Vitals: Vitals: Vital Signs Date Time Temp Pulse Resp B/P (MAP) Pulse Ox O2 Delivery O2 Flow Rate FiO2 12/27/18 09:12 77 126/65 12/27/18 09:10 Room Air 12/27/18 07:00 98.3 18 95 98.3 Labs: Labs: Laboratory Tests Test 12/26/18 17:30 12/26/18 17:50 12/26/18 19:03 12/27/18 05:20 White Blood Count 8.4 x10^3/uL (4.0-11.0) 6.9 x10^3/uL (4.0-11.0) Red Blood Count 4.71 x10^6/uL (3.50-5.40) 4.30 x10^6/uL (3.50-5.40) Hemoglobin 12.3 g/dL (12.0-15.5) 11.5 g/dL (12.0-15.5) Hematocrit 38.2 % (36.0-47.0) 35.0 % (36.0-47.0) Mean Corpuscular Volume 81 fL (79-100) 81 fL (79-100) Mean Corpuscular Hemoglobin 26 pg (25-35) 27 pg (25-35) Mean Corpuscular Hemoglobin Concent 32 g/dL (31-37) 33 g/dL (31-37) Red Cell Distribution Width 15.3 % (11.5-14.5) 15.5 % (11.5-14.5) Platelet Count 197 x10^3/uL (140-400) 177 x10^3/uL (140-400) Neutrophils (%) (Auto) 81 % (31-73) 78 % (31-73) Lymphocytes (%) (Auto) 12 % (24-48) 13 % (24-48) Monocytes (%) (Auto) 6 % (0-9) 9 % (0-9) Eosinophils (%) (Auto) 0 % (0-3) 0 % (0-3) Basophils (%) (Auto) 1 % (0-3) 0 % (0-3) Neutrophils # (Auto) 6.8 x10^3uL (1.8-7.7) 5.4 x10^3uL (1.8-7.7) Lymphocytes # (Auto) 1.0 x10^3/uL (1.0-4.8) 0.9 x10^3/uL (1.0-4.8) Monocytes # (Auto) 0.5 x10^3/uL (0.0-1.1) 0.6 x10^3/uL (0.0-1.1) Eosinophils # (Auto) 0.0 x10^3/uL (0.0-0.7) 0.0 x10^3/uL (0.0-0.7) Basophils # (Auto) 0.0 x10^3/uL (0.0-0.2) 0.0 x10^3/uL (0.0-0.2) Prothrombin Time 13.5 SEC (11.7-14.0) Prothromb Time International Ratio 1.1 (0.8-1.1) Sodium Level 140 mmol/L (136-145) 146 mmol/L (136-145) Potassium Level 3.7 mmol/L (3.5-5.1) 3.4 mmol/L (3.5-5.1) Chloride Level 103 mmol/L (98-107) 108 mmol/L (98-107) Carbon Dioxide Level 28 mmol/L (21-32) 27 mmol/L (21-32) Anion Gap 9 (6-14) 11 (6-14) Blood Urea Nitrogen 7 mg/dL (7-20) 3 mg/dL (7-20) Creatinine 0.8 mg/dL (0.6-1.0) 0.7 mg/dL (0.6-1.0) Estimated GFR (Cockcroft-Gault) 67.5 78.8 BUN/Creatinine Ratio 9 (6-20) Glucose Level 130 mg/dL (70-99) 100 mg/dL (70-99) Calcium Level 8.7 mg/dL (8.5-10.1) 8.1 mg/dL (8.5-10.1) Magnesium Level 1.8 mg/dL (1.8-2.4) Total Bilirubin 0.5 mg/dL (0.2-1.0) Aspartate Amino Transf (AST/SGOT) 19 U/L (15-37) Alanine Aminotransferase (ALT/SGPT) 14 U/L (14-59) Alkaline Phosphatase 69 U/L (46-116) Creatine Kinase 75 U/L (26-192) Creatine Kinase MB (Mass) 3.0 ng/mL (0.0-3.6) Creatine Kinase MB Relative Index 4.0 % (0-4) Troponin I Quantitative 0.021 ng/mL (0.000-0.055) ZE-Jyz-H-Type Natriuretic Peptide 4872 pg/mL (0-449) Total Protein 6.5 g/dL (6.4-8.2) Albumin 3.5 g/dL (3.4-5.0) Albumin/Globulin Ratio 1.2 (1.0-1.7) Lipase 57 U/L (73-393) Thyroid Stimulating Hormone (TSH) 1.634 uIU/mL (0.358-3.74) Urine Collection Type Unknown Urine Color Yellow Urine Clarity Clear Urine pH 6.0 Urine Specific [place] <=1.005 Urine Protein Negative mg/dL (NEG-TRACE) Urine Glucose (UA) Negative mg/dL (NEG) Urine Ketones (Stick) Negative mg/dL (NEG) Urine Blood Small (NEG) Urine Nitrite Negative (NEG) Urine Bilirubin Negative (NEG) Urine Urobilinogen Dipstick 0.2 mg/dL (0.2 mg/dL) Urine Leukocyte Esterase Moderate (NEG) Urine RBC 3-5 /HPF (0-2) Urine WBC 20-40 /HPF (0-4) Urine Squamous Epithelial Cells Occ /LPF Urine Bacteria Few /HPF (0-FEW) Urine Opiates Screen Pos (NEG) Urine Methadone Screen Neg (NEG) Urine Barbiturates Neg (NEG) Urine Phencyclidine Screen Neg (NEG) Urine Amphetamine/Methamphetamine Neg (NEG) Urine Benzodiazepines Screen Neg (NEG) Urine Cocaine Screen Neg (NEG) Urine Cannabinoids Screen Neg (NEG) Urine Ethyl Alcohol Neg (NEG) Influenza Type A Antigen Negative (NEGATIVE) Influenza Type B Antigen Negative (NEGATIVE) Allergies: Coded Allergies: Sulfa (Sulfonamide Antibiotics) (Verified Allergy, Unknown, 11/15/18) codeine (Verified Allergy, Unknown, 11/15/18) metronidazole (Verified Allergy, Unknown, 11/15/18) Medications: Current Medications Medications (Trade) Dose Ordered Sig/Glen Route PRN Reason Start Time Stop Time Status Last Admin Dose Admin Sodium Chloride 1,000 ml @ 1,000 mls/hr 1X ONCE IV 12/26/18 17:15 12/26/18 18:14 DC 12/26/18 19:07 Famotidine (Pepcid Vial) 20 mg 1X ONCE IVP 12/26/18 17:15 12/26/18 17:16 DC 12/26/18 19:07 Ondansetron HCl (Zofran) 4 mg 1X ONCE IV 12/26/18 17:15 12/26/18 17:16 DC 12/26/18 19:07 Iohexol (Omnipaque 300 Mg/ml) 75 ml 1X ONCE IV 12/26/18 17:30 12/26/18 17:31 DC 12/26/18 17:30 Ciprofloxacin/ Dextrose 200 ml @ 200 mls/hr 1X ONCE IV 12/26/18 20:15 12/26/18 21:14 DC 12/26/18 21:16 Fentanyl Citrate (Fentanyl 2ml Vial) 50 mcg PRN Q1HR PRN IV PAIN 12/26/18 22:00 12/27/18 21:59 12/27/18 02:35 Sodium Chloride 1,000 ml @ 75 mls/hr 1X ONCE IV 12/26/18 22:00 12/27/18 11:19 12/26/18 22:36 Clonazepam (KlonoPIN) 0.5 mg DAILYWSUP PO 12/27/18 04:00 12/27/18 04:08 Acetaminophen/ Hydrocodone Bitart (Lortab 7.5/325) 1 tab PRN Q4HRS PRN PO PAIN 12/27/18 04:00 12/27/18 09:10 Gabapentin (Neurontin) 600 mg HS PO 12/27/18 04:00 12/27/18 04:09 Potassium Chloride (Klor-Con) 40 meq 1X ONCE PO 12/27/18 09:00 12/27/18 09:01 DC 12/27/18 09:12 Carbidopa/Levodopa (Sinemet 25/100) 1 tab BID PO 12/27/18 09:00 12/27/18 09:11 Gabapentin (Neurontin) 300 mg BIDWBKFT/STIVEN PO 12/27/18 08:30 12/27/18 09:10 Losartan Potassium (Cozaar) 50 mg DAILY PO 12/27/18 09:00 12/27/18 09:11 Metoprolol Tartrate (Lopressor) 25 mg BID PO 12/27/18 09:00 12/27/18 09:12 Imaging: Imaging: CXR IMPRESSION: No pulmonary consolidation or acute airspace disease. CT A/P IMPRESSION: 1. There is scattered small bowel wall thickening, evidence of enteritis. There is no free fluid or free air. There is no evidence of bowel obstruction. Evaluation of bowel is limited without oral contrast. 2. 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 3. There is coronary calcification. PE: GEN: NAD HEENT: Atraumatic, PERRLA LUNGS: CTAB HEART: RRR, no murmurs ABD: NABS, S/ND/NT, no masses EXTREMITY: No edema SKIN: No rashes, no jaundice NEURO/PSYCH: A & O 3 A/P: A/P: Vomiting and diarrhea - acute onset, possibly precipitated by eating stuffed dates, now resolved Normocytic anemia Abnormal CT - possible enteritis H/o GERD - controlled w/ H2 marysol, EGD a few years ago reportedly normal H/o OIC - controlled w/ Miralax CRC screen - reports normal colonoscopy several years ago S/p cholecystectomy -- Symptoms improved/resolved. I offered starting w/ clear liquids and advancing as tolerated - her preference is to start w/ regular diet. DC per primary if tolerates. Follow-up w/ GI PRN. ILIA CUADRA Dec 27, 2018 10:14
[2018-12-27 11:00] VITALS: BP 121/64
--- NOTE | 2018-12-27 13:40 | NUR ---
MALINA following. Discussed with RN, pt is from [facility], [facility]. MALINA contacted pt's son/ DPOA, Ramses (Anthony) who thinks his mom is doing pretty well at home but would be in agreement to her having home health go out to the home if doctor and pt agrees. Pt is being tested for C-Diff and staying another night. Ramses lives in [place], so is not able to transport his mother back to her assisted living, but he does have people he can call to help, he will just need a little bit of notice to get something arranged. RN notified. MALINA consulted Iggy Sánchez RN to speak with pt about home health. MALINA will continue to follow.
[2018-12-27 15:00] VITALS: BP 111/43
[2018-12-27 19:00] VITALS: BP 114/50
[2018-12-27] MEDS: SIMVASTATIN 40 MG TABLET. PO SCH (20:40)
[2018-12-27] MEDS: FAMOTIDINE 20 MG TABLET. PO SCH (20:40)
[2018-12-27 22:56] VITALS: BP 125/69
[2018-12-28] MEDS: HYDROcodone/APAP 7.5/325MG 1 TAB TABLET PO PRN ×6 (00:04→22:52)
[2018-12-28 02:57] VITALS: BP 123/65
[2018-12-28 07:00] VITALS: BP_SYST 132; BP_SYST 142; BP_DIAS 64; BP_DIAS 70
[2018-12-28] MEDS: GABAPENTIN 300 MG CAPSULE. PO SCH ×3 (08:54→20:57)
[2018-12-28] MEDS: LOSARTAN POTASSIUM 50 MG TABLET. PO SCH (08:55)
[2018-12-28] MEDS: CARBIDOPA/LEVODOPA 25/100MG TABLET PO SCH ×2 (08:55→20:57)
[2018-12-28] MEDS: METOPROLOL TART IMMED RELEASE 25 MG TABLET. PO SCH ×2 (08:55→20:57)
[2018-12-28] MEDS: IV NORMAL SALINE 1000ML BAG 1,000 ML IV SCH (08:59)
[2018-12-28] MEDS: POLYETHYLENE GLYCOL 3350 17 GM PACKET. PO SCH (09:00)
[2018-12-28] MEDS ORDERED: CIPROFLOXACIN 400MG PREMIX 200 ML IV SCH (09:00)
--- NOTE | 2018-12-28 09:15 | PDOC ---
PROGRESS NOTES Chief Complaint Chief Complaint Abdominal Pain UTI Diarrhea- resolved ?Enteritis on CT Malaise HTN GERD H/o Angiomyolipoma L kidney History of Present Illness History of Present Illness Ms Holloway is an 88to F who presents from assisted living for n/v/d until 12/25, and sustained weakness caused her to present to the ED. She was seen and examined in bed this morning, NAD Ate about half her breakfast of toast and eggs Discussed with RN- had 2 episodes of loose stool yesterday morning, but none since\ Awaiting C diff and stool cultures, on C diff precautions Vitals Vitals Vital Signs Date Time Temp Pulse Resp B/P (MAP) Pulse Ox O2 Delivery O2 Flow Rate FiO2 12/28/18 08:55 71 142/70 12/28/18 07:00 98.1 17 92 Room Air 98.1 12/28/18 05:45 2.0 Physical Exam General: Alert, Cooperative, No acute distress, Other (frail appearing elderly woman) Heart: Regular rate, No murmurs Lungs: Clear Abdomen: Normal bowel sounds, Soft, No tenderness, No hepatosplenomegaly, No masses Extremities: No clubbing, No cyanosis, No edema, Normal pulses, No tenderness/ swelling Skin: No rashes, No breakdown, No significant lesion Review of Systems Review of Systems Pt reports resolved diarrhea and nausea Pt denies CP, SOB Assessment and Plan Assessmemt and Plan Problems Medical Problems: (1) Enteritis Status: Acute (2) Urinary tract infection Status: Acute Assessment Abdominal Pain UTI Diarrhea- resolved ?Enteritis on CT Malaise HTN GERD H/o Angiomyolipoma L kidney Plan Cipro 400mg IV BID for UTI IV NS 50ml/hr Await C diff and stool culture SNU eval- pt appears quite weak, likely unable to perform ADLs PT/OT Labs Home meds Appreciate further subspecialty recs Discharge dispo pending- may require higher level of care than assisted living, appreciate PT/OT input Comment Review of Relevant I have reviewed the following items delfino (where applicable) has been applied. Labs Laboratory Tests Test 12/26/18 17:30 12/26/18 17:50 12/26/18 19:03 12/27/18 05:20 White Blood Count 8.4 x10^3/uL (4.0-11.0) 6.9 x10^3/uL (4.0-11.0) Red Blood Count 4.71 x10^6/uL (3.50-5.40) 4.30 x10^6/uL (3.50-5.40) Hemoglobin 12.3 g/dL (12.0-15.5) 11.5 g/dL (12.0-15.5) Hematocrit 38.2 % (36.0-47.0) 35.0 % (36.0-47.0) Mean Corpuscular Volume 81 fL (79-100) 81 fL (79-100) Mean Corpuscular Hemoglobin 26 pg (25-35) 27 pg (25-35) Mean Corpuscular Hemoglobin Concent 32 g/dL (31-37) 33 g/dL (31-37) Red Cell Distribution Width 15.3 % (11.5-14.5) 15.5 % (11.5-14.5) Platelet Count 197 x10^3/uL (140-400) 177 x10^3/uL (140-400) Neutrophils (%) (Auto) 81 % (31-73) 78 % (31-73) Lymphocytes (%) (Auto) 12 % (24-48) 13 % (24-48) Monocytes (%) (Auto) 6 % (0-9) 9 % (0-9) Eosinophils (%) (Auto) 0 % (0-3) 0 % (0-3) Basophils (%) (Auto) 1 % (0-3) 0 % (0-3) Neutrophils # (Auto) 6.8 x10^3uL (1.8-7.7) 5.4 x10^3uL (1.8-7.7) Lymphocytes # (Auto) 1.0 x10^3/uL (1.0-4.8) 0.9 x10^3/uL (1.0-4.8) Monocytes # (Auto) 0.5 x10^3/uL (0.0-1.1) 0.6 x10^3/uL (0.0-1.1) Eosinophils # (Auto) 0.0 x10^3/uL (0.0-0.7) 0.0 x10^3/uL (0.0-0.7) Basophils # (Auto) 0.0 x10^3/uL (0.0-0.2) 0.0 x10^3/uL (0.0-0.2) Prothrombin Time 13.5 SEC (11.7-14.0) Prothromb Time International Ratio 1.1 (0.8-1.1) Sodium Level 140 mmol/L (136-145) 146 mmol/L (136-145) Potassium Level 3.7 mmol/L (3.5-5.1) 3.4 mmol/L (3.5-5.1) Chloride Level 103 mmol/L (98-107) 108 mmol/L (98-107) Carbon Dioxide Level 28 mmol/L (21-32) 27 mmol/L (21-32) Anion Gap 9 (6-14) 11 (6-14) Blood Urea Nitrogen 7 mg/dL (7-20) 3 mg/dL (7-20) Creatinine 0.8 mg/dL (0.6-1.0) 0.7 mg/dL (0.6-1.0) Estimated GFR (Cockcroft-Gault) 67.5 78.8 BUN/Creatinine Ratio 9 (6-20) Glucose Level 130 mg/dL (70-99) 100 mg/dL (70-99) Calcium Level 8.7 mg/dL (8.5-10.1) 8.1 mg/dL (8.5-10.1) Magnesium Level 1.8 mg/dL (1.8-2.4) Total Bilirubin 0.5 mg/dL (0.2-1.0) Aspartate Amino Transf (AST/SGOT) 19 U/L (15-37) Alanine Aminotransferase (ALT/SGPT) 14 U/L (14-59) Alkaline Phosphatase 69 U/L (46-116) Creatine Kinase 75 U/L (26-192) Creatine Kinase MB (Mass) 3.0 ng/mL (0.0-3.6) Creatine Kinase MB Relative Index 4.0 % (0-4) Troponin I Quantitative 0.021 ng/mL (0.000-0.055) OI-Lac-J-Type Natriuretic Peptide 4872 pg/mL (0-449) Total Protein 6.5 g/dL (6.4-8.2) Albumin 3.5 g/dL (3.4-5.0) Albumin/Globulin Ratio 1.2 (1.0-1.7) Lipase 57 U/L (73-393) Thyroid Stimulating Hormone (TSH) 1.634 uIU/mL (0.358-3.74) Urine Collection Type Unknown Urine Color Yellow Urine Clarity Clear Urine pH 6.0 Urine Specific [place] <=1.005 Urine Protein Negative mg/dL (NEG-TRACE) Urine Glucose (UA) Negative mg/dL (NEG) Urine Ketones (Stick) Negative mg/dL (NEG) Urine Blood Small (NEG) Urine Nitrite Negative (NEG) Urine Bilirubin Negative (NEG) Urine Urobilinogen Dipstick 0.2 mg/dL (0.2 mg/dL) Urine Leukocyte Esterase Moderate (NEG) Urine RBC 3-5 /HPF (0-2) Urine WBC 20-40 /HPF (0-4) Urine Squamous Epithelial Cells Occ /LPF Urine Bacteria Few /HPF (0-FEW) Urine Opiates Screen Pos (NEG) Urine Methadone Screen Neg (NEG) Urine Barbiturates Neg (NEG) Urine Phencyclidine Screen Neg (NEG) Urine Amphetamine/Methamphetamine Neg (NEG) Urine Benzodiazepines Screen Neg (NEG) Urine Cocaine Screen Neg (NEG) Urine Cannabinoids Screen Neg (NEG) Urine Ethyl Alcohol Neg (NEG) Influenza Type A Antigen Negative (NEGATIVE) Influenza Type B Antigen Negative (NEGATIVE) Medications Current Medications Sodium Chloride 1,000 ml @ 1,000 mls/hr 1X ONCE IV Last administered on at 19:07; Start 12/26/18 at 17:15; Stop 12/26/18 at 18:14; Status DC Famotidine (Pepcid Vial) 20 mg 1X ONCE IVP Last administered on 12/26/18at 19: 07; Start 12/26/18 at 17:15; Stop 12/26/18 at 17:16; Status DC Ondansetron HCl (Zofran) 4 mg 1X ONCE IV Last administered on 12/26/18at 19:07 ; Start 12/26/18 at 17:15; Stop 12/26/18 at 17:16; Status DC Iohexol (Omnipaque 300 Mg/ml) 75 ml 1X ONCE IV Last administered on 12/26/18at 17:30; Start 12/26/18 at 17:30; Stop 12/26/18 at 17:31; Status DC Ciprofloxacin/ Dextrose 200 ml @ 200 mls/hr 1X ONCE IV Last administered on at 21:16; Start 12/26/18 at 20:15; Stop 12/26/18 at 21:14; Status DC Ondansetron HCl (Zofran) 4 mg PRN Q6HRS PRN IV NAUSEA/VOMITING; Start 12/26/18 at 21:30 Ondansetron HCl (Zofran) 4 mg PRN Q8HRS PRN IV NAUSEA/VOMITING; Start 12/26/18 at 22:00; Stop 12/27/18 at 16:34; Status DC Fentanyl Citrate (Fentanyl 2ml Vial) 50 mcg PRN Q1HR PRN IV PAIN Last administered on 12/27/18at 02:35; Start 12/26/18 at 22:00; Stop 12/27/18 at 21:59 ; Status DC Sodium Chloride 1,000 ml @ 75 mls/hr 1X ONCE IV Last administered on at 22:36; Start 12/26/18 at 22:00; Stop 12/27/18 at 11:19; Status DC Clonazepam (KlonoPIN) 0.5 mg DAILYWSUP PO Last administered on 12/27/18 17:15 ; Start 12/27/18 at 04:00 Acetaminophen/ Hydrocodone Bitart (Lortab 7.5/325) 1 tab PRN Q4HRS PRN PO PAIN Last administered on 12/28/18 05:45; Start 12/27/18 at 04:00 Gabapentin (Neurontin) 600 mg HS PO Last administered on 12/27/18at 20:40; Start 12/27/18 at 04:00 Potassium Chloride (Klor-Con) 40 meq 1X ONCE PO Last administered on 09:12; Start 12/27/18 at 09:00; Stop 12/27/18 at 09:01; Status DC Carbidopa/Levodopa (Sinemet 25/100) 1 tab BID PO Last administered on at 08:55; Start 12/27/18 at 09:00 Gabapentin (Neurontin) 300 mg BIDWBKFT/STIVEN PO Last administered on 12/28/18 08 :54; Start 12/27/18 at 08:30 Losartan Potassium (Cozaar) 50 mg DAILY PO Last administered on 12/28/18 08:55 ; Start 12/27/18 at 09:00 Metoprolol Tartrate (Lopressor) 25 mg BID PO Last administered on 12/28/18 08: 55; Start 12/27/18 at 09:00 Polyethylene Glycol (miraLAX PACKET) 17 gm DAILY PO ; Start 12/27/18 at 09:00 Famotidine (Pepcid) 20 mg QHS PO Last administered on 12/27/18 20:40; Start at 21:00 Simvastatin (Zocor) 40 mg QHS PO Last administered on 12/27/18 20:40; Start at 21:00 Sodium Chloride 1,000 ml @ 50 mls/hr Q20H IV Last administered on 12/28/18 08 :59; Start 12/28/18 at 08:45 Ciprofloxacin/ Dextrose 200 ml @ 200 mls/hr Q24H IV Last administered on 09:01; Start 12/28/18 at 09:00 Active Scripts Active Reported Hydrocodone-Apap 7.5-325 (Hydrocodone Bit/Acetaminophen) 1 Tab Tablet 1 Tab PO PRN Q4HRS PRN Simvastatin 40 Mg Tablet 1 Tab PO QHS Ranitidine Hcl 150 Mg Tablet 2 Tab PO HS Polyethylene Glycol 3350 2,500 Gm Powder 17 Gm PO DAILY Metoprolol Tartrate 25 Mg Tablet 1 Tab PO BID Losartan Potassium 50 Mg Tablet 50 Mg PO DAILY Gabapentin 600 Mg Tablet 600 Mg PO HS Gabapentin (Gabapentin) 300 Mg Capsule 300 Mg PO BIDWBK/STIVEN Clonazepam 0.5 Mg Tablet 1 Tab PO DAILYWSUP Sinemet 25-100 Mg Tablet (Carbidopa/Levodopa) 1 Each Tablet 1 Tab PO BID Vitals/I & O Vital Sign - Last 24 Hours 12/27/18 12/27/18 12/27/18 12/27/18 09:10 09:11 09:12 11:00 Temp 98.1 98.1 Pulse 77 77 68 Resp 17 B/P (MAP) 126/65 126/65 121/64 (83) Pulse Ox 97 O2 Delivery Room Air Room Air 12/27/18 12/27/18 12/27/18 12/27/18 14:46 15:00 19:00 19:28 Temp 98.1 98.2 98.1 98.2 Pulse 67 71 Resp 16 18 B/P (MAP) 111/43 (65) 114/50 (71) Pulse Ox 98 93 O2 Delivery Room Air Room Air Room Air Room Air 12/27/18 12/27/18 12/27/18 12/28/18 19:45 20:41 22:56 00:04 Temp 98.3 98.3 Pulse 71 62 Resp 18 B/P (MAP) 114/50 125/69 (87) Pulse Ox 94 O2 Delivery Room Air Room Air Room Air 12/28/18 12/28/18 12/28/18 12/28/18 02:57 05:45 06:45 07:00 Temp 98.0 98.1 98.0 98.1 Pulse 61 71 Resp 18 17 B/P (MAP) 123/65 (84) 142/70 (94) Pulse Ox 95 92 O2 Delivery Room Air Room Air Room Air Room Air O2 Flow Rate 2.0 12/28/18 12/28/18 08:55 08:55 Pulse 71 71 B/P (MAP) 142/70 142/70 Intake and Output 12/27/18 12/27/18 12/28/18 15:00 23:00 07:00 Intake Total 50 ml Balance 50 ml MEGHNA BAUGH III DO Dec 28, 2018 09:15
[2018-12-28 11:00] VITALS: BP 188/93
--- NOTE | 2018-12-28 14:21 | PDOC ---
G I PROGRESS NOTE Reason for Follow-up NV/D Subjective Feeling better Physical Exam Lungs clear CV S1 S2 Abd +BS, soft, nontender Review of Relevant I have reviewed the following items delfino (where applicable) has been applied. Labs Laboratory Tests Test 12/26/18 17:30 12/26/18 17:50 12/26/18 19:03 12/27/18 05:20 White Blood Count 8.4 x10^3/uL (4.0-11.0) 6.9 x10^3/uL (4.0-11.0) Red Blood Count 4.71 x10^6/uL (3.50-5.40) 4.30 x10^6/uL (3.50-5.40) Hemoglobin 12.3 g/dL (12.0-15.5) 11.5 g/dL (12.0-15.5) Hematocrit 38.2 % (36.0-47.0) 35.0 % (36.0-47.0) Mean Corpuscular Volume 81 fL (79-100) 81 fL (79-100) Mean Corpuscular Hemoglobin 26 pg (25-35) 27 pg (25-35) Mean Corpuscular Hemoglobin Concent 32 g/dL (31-37) 33 g/dL (31-37) Red Cell Distribution Width 15.3 % (11.5-14.5) 15.5 % (11.5-14.5) Platelet Count 197 x10^3/uL (140-400) 177 x10^3/uL (140-400) Neutrophils (%) (Auto) 81 % (31-73) 78 % (31-73) Lymphocytes (%) (Auto) 12 % (24-48) 13 % (24-48) Monocytes (%) (Auto) 6 % (0-9) 9 % (0-9) Eosinophils (%) (Auto) 0 % (0-3) 0 % (0-3) Basophils (%) (Auto) 1 % (0-3) 0 % (0-3) Neutrophils # (Auto) 6.8 x10^3uL (1.8-7.7) 5.4 x10^3uL (1.8-7.7) Lymphocytes # (Auto) 1.0 x10^3/uL (1.0-4.8) 0.9 x10^3/uL (1.0-4.8) Monocytes # (Auto) 0.5 x10^3/uL (0.0-1.1) 0.6 x10^3/uL (0.0-1.1) Eosinophils # (Auto) 0.0 x10^3/uL (0.0-0.7) 0.0 x10^3/uL (0.0-0.7) Basophils # (Auto) 0.0 x10^3/uL (0.0-0.2) 0.0 x10^3/uL (0.0-0.2) Prothrombin Time 13.5 SEC (11.7-14.0) Prothromb Time International Ratio 1.1 (0.8-1.1) Sodium Level 140 mmol/L (136-145) 146 mmol/L (136-145) Potassium Level 3.7 mmol/L (3.5-5.1) 3.4 mmol/L (3.5-5.1) Chloride Level 103 mmol/L (98-107) 108 mmol/L (98-107) Carbon Dioxide Level 28 mmol/L (21-32) 27 mmol/L (21-32) Anion Gap 9 (6-14) 11 (6-14) Blood Urea Nitrogen 7 mg/dL (7-20) 3 mg/dL (7-20) Creatinine 0.8 mg/dL (0.6-1.0) 0.7 mg/dL (0.6-1.0) Estimated GFR (Cockcroft-Gault) 67.5 78.8 BUN/Creatinine Ratio 9 (6-20) Glucose Level 130 mg/dL (70-99) 100 mg/dL (70-99) Calcium Level 8.7 mg/dL (8.5-10.1) 8.1 mg/dL (8.5-10.1) Magnesium Level 1.8 mg/dL (1.8-2.4) Total Bilirubin 0.5 mg/dL (0.2-1.0) Aspartate Amino Transf (AST/SGOT) 19 U/L (15-37) Alanine Aminotransferase (ALT/SGPT) 14 U/L (14-59) Alkaline Phosphatase 69 U/L (46-116) Creatine Kinase 75 U/L (26-192) Creatine Kinase MB (Mass) 3.0 ng/mL (0.0-3.6) Creatine Kinase MB Relative Index 4.0 % (0-4) Troponin I Quantitative 0.021 ng/mL (0.000-0.055) WK-Cnt-K-Type Natriuretic Peptide 4872 pg/mL (0-449) Total Protein 6.5 g/dL (6.4-8.2) Albumin 3.5 g/dL (3.4-5.0) Albumin/Globulin Ratio 1.2 (1.0-1.7) Lipase 57 U/L (73-393) Thyroid Stimulating Hormone (TSH) 1.634 uIU/mL (0.358-3.74) Urine Collection Type Unknown Urine Color Yellow Urine Clarity Clear Urine pH 6.0 Urine Specific [place] <=1.005 Urine Protein Negative mg/dL (NEG-TRACE) Urine Glucose (UA) Negative mg/dL (NEG) Urine Ketones (Stick) Negative mg/dL (NEG) Urine Blood Small (NEG) Urine Nitrite Negative (NEG) Urine Bilirubin Negative (NEG) Urine Urobilinogen Dipstick 0.2 mg/dL (0.2 mg/dL) Urine Leukocyte Esterase Moderate (NEG) Urine RBC 3-5 /HPF (0-2) Urine WBC 20-40 /HPF (0-4) Urine Squamous Epithelial Cells Occ /LPF Urine Bacteria Few /HPF (0-FEW) Urine Opiates Screen Pos (NEG) Urine Methadone Screen Neg (NEG) Urine Barbiturates Neg (NEG) Urine Phencyclidine Screen Neg (NEG) Urine Amphetamine/Methamphetamine Neg (NEG) Urine Benzodiazepines Screen Neg (NEG) Urine Cocaine Screen Neg (NEG) Urine Cannabinoids Screen Neg (NEG) Urine Ethyl Alcohol Neg (NEG) Influenza Type A Antigen Negative (NEGATIVE) Influenza Type B Antigen Negative (NEGATIVE) Medications Current Medications Sodium Chloride 1,000 ml @ 1,000 mls/hr 1X ONCE IV Last administered on at 19:07; Start 12/26/18 at 17:15; Stop 12/26/18 at 18:14; Status DC Famotidine (Pepcid Vial) 20 mg 1X ONCE IVP Last administered on 12/26/18at 19: 07; Start 12/26/18 at 17:15; Stop 12/26/18 at 17:16; Status DC Ondansetron HCl (Zofran) 4 mg 1X ONCE IV Last administered on 12/26/18at 19:07 ; Start 12/26/18 at 17:15; Stop 12/26/18 at 17:16; Status DC Iohexol (Omnipaque 300 Mg/ml) 75 ml 1X ONCE IV Last administered on 12/26/18at 17:30; Start 12/26/18 at 17:30; Stop 12/26/18 at 17:31; Status DC Ciprofloxacin/ Dextrose 200 ml @ 200 mls/hr 1X ONCE IV Last administered on at 21:16; Start 12/26/18 at 20:15; Stop 12/26/18 at 21:14; Status DC Ondansetron HCl (Zofran) 4 mg PRN Q6HRS PRN IV NAUSEA/VOMITING; Start 12/26/18 at 21:30 Ondansetron HCl (Zofran) 4 mg PRN Q8HRS PRN IV NAUSEA/VOMITING; Start 12/26/18 at 22:00; Stop 12/27/18 at 16:34; Status DC Fentanyl Citrate (Fentanyl 2ml Vial) 50 mcg PRN Q1HR PRN IV PAIN Last administered on 12/27/18at 02:35; Start 12/26/18 at 22:00; Stop 12/27/18 at 21:59 ; Status DC Sodium Chloride 1,000 ml @ 75 mls/hr 1X ONCE IV Last administered on at 22:36; Start 12/26/18 at 22:00; Stop 12/27/18 at 11:19; Status DC Clonazepam (KlonoPIN) 0.5 mg DAILYWSUP PO Last administered on 12/27/18at 17:15 ; Start 12/27/18 at 04:00 Acetaminophen/ Hydrocodone Bitart (Lortab 7.5/325) 1 tab PRN Q4HRS PRN PO PAIN Last administered on 12/28/18at 09:38; Start 12/27/18 at 04:00 Gabapentin (Neurontin) 600 mg HS PO Last administered on 12/27/18at 20:40; Start 12/27/18 at 04:00 Potassium Chloride (Klor-Con) 40 meq 1X ONCE PO Last administered on at 09:12; Start 12/27/18 at 09:00; Stop 12/27/18 at 09:01; Status DC Carbidopa/Levodopa (Sinemet 25/100) 1 tab BID PO Last administered on at 08:55; Start 12/27/18 at 09:00 Gabapentin (Neurontin) 300 mg BIDWBKFT/ PO Last administered on 12/28/18at 12 :53; Start 12/27/18 at 08:30 Losartan Potassium (Cozaar) 50 mg DAILY PO Last administered on 12/28/18 08:55 ; Start 12/27/18 at 09:00 Metoprolol Tartrate (Lopressor) 25 mg BID PO Last administered on 12/28/18 08: 55; Start 12/27/18 at 09:00 Polyethylene Glycol (miraLAX PACKET) 17 gm DAILY PO ; Start 12/27/18 at 09:00 Famotidine (Pepcid) 20 mg QHS PO Last administered on 12/27/18at 20:40; Start at 21:00 Simvastatin (Zocor) 40 mg QHS PO Last administered on 12/27/18at 20:40; Start at 21:00 Sodium Chloride 1,000 ml @ 50 mls/hr Q20H IV Last administered on 12/28/18at 08 :59; Start 12/28/18 at 08:45 Ciprofloxacin/ Dextrose 200 ml @ 200 mls/hr Q24H IV Last administered on at 09:01; Start 12/28/18 at 09:00 Lactobacillus Rhamnosus (Culturelle) 1 cap BID PO ; Start 12/28/18 at 21:00 Active Scripts Active Reported Hydrocodone-Apap 7.5-325 (Hydrocodone Bit/Acetaminophen) 1 Tab Tablet 1 Tab PO PRN Q4HRS PRN Simvastatin 40 Mg Tablet 1 Tab PO QHS Ranitidine Hcl 150 Mg Tablet 2 Tab PO HS Polyethylene Glycol 3350 2,500 Gm Powder 17 Gm PO DAILY Metoprolol Tartrate 25 Mg Tablet 1 Tab PO BID Losartan Potassium 50 Mg Tablet 50 Mg PO DAILY Gabapentin 600 Mg Tablet 600 Mg PO HS Gabapentin (Gabapentin) 300 Mg Capsule 300 Mg PO BIDWBK/ Clonazepam 0.5 Mg Tablet 1 Tab PO DAILYWSUP Sinemet 25-100 Mg Tablet (Carbidopa/Levodopa) 1 Each Tablet 1 Tab PO BID Vitals/I & O Vital Sign - Last 24 Hours 12/27/18 12/27/18 12/27/18 12/27/18 14:46 15:00 19:00 19:28 Temp 98.1 98.2 98.1 98.2 Pulse 67 71 Resp 16 18 B/P (MAP) 111/43 (65) 114/50 (71) Pulse Ox 98 93 O2 Delivery Room Air Room Air Room Air Room Air 12/27/18 12/27/18 12/27/18 12/28/18 19:45 20:41 22:56 00:04 Temp 98.3 98.3 Pulse 71 62 Resp 18 B/P (MAP) 114/50 125/69 (87) Pulse Ox 94 O2 Delivery Room Air Room Air Room Air 12/28/18 12/28/18 12/28/18 12/28/18 02:57 05:45 07:00 07:00 Temp 98.0 98.4 98.1 98.0 98.4 98.1 Pulse 61 83 71 Resp 18 18 17 B/P (MAP) 123/65 (84) 132/64 (86) 142/70 (94) Pulse Ox 95 94 92 O2 Delivery Room Air Room Air Room Air Room Air O2 Flow Rate 2.0 12/28/18 12/28/18 12/28/18 12/28/18 08:00 08:55 08:55 09:38 Pulse 71 71 B/P (MAP) 142/70 142/70 O2 Delivery Room Air Room Air 12/28/18 12/28/18 10:41 11:00 Temp 98.0 98.0 Pulse 73 Resp 18 B/P (MAP) 188/93 (124) Pulse Ox 98 O2 Delivery Room Air Intake and Output 12/27/18 12/27/18 12/28/18 15:00 23:00 07:00 Intake Total 50 ml Balance 50 ml Problem List Problems Medical Problems: (1) Enteritis Status: Acute (2) Urinary tract infection Status: Acute Assessment Abd pain- most likely secondary to self limited enteritis. Plan advance diet and activity dispostion plans per primary KRYSTIN AGUILAR MD Dec 28, 2018 14:21
[2018-12-28 15:00] VITALS: BP 133/57
[2018-12-28] MEDS: clonazePAM 0.5 MG TABLET PO SCH (17:25)
[2018-12-28 19:24] VITALS: BP 132/62
[2018-12-28] MEDS: SIMVASTATIN 40 MG TABLET. PO SCH (20:57)
[2018-12-28] MEDS: FAMOTIDINE 20 MG TABLET. PO SCH (20:57)
[2018-12-28] MEDS: LACTOBACILLUS RHAMNOSUS GG 1 CAPSULE. PO SCH (20:57)
[2018-12-28 23:10] VITALS: BP 136/62
[2018-12-29 03:55] VITALS: BP 126/62
[2018-12-29] MEDS: IV NORMAL SALINE 1000ML BAG 1,000 ML IV SCH (04:45)
[2018-12-29 07:00] VITALS: BP 139/73
[2018-12-29] MEDS ORDERED: CIPR500T94 PO (08:51)
--- NOTE | 2018-12-29 08:52 | SNU/HH DC ---
DISCHARGE WITH HOME HEALTH DISCHARGE INFORMATION: Discharge Date: Dec 29, 2018 Final Diagnosis: Problems Medical Problems: (1) Enteritis Status: Acute (2) Urinary tract infection Status: Acute Condition on Discharge: Stable CODE STATUS: Code Status: Full HOME HEALTH: Face to Face: I certify this patient is under my care and that I, or a nurse practitioner or physician's assistant professor of theater working with me, had a face to face encounter that meets the physician face to face encounter requirements with this patient on []. Physical Therapy For: Evalulation/Treatment Occupational Therapy For: Evaluation/Treatment Speech Language Pathology For: Evaluation/Treatment Home Health Aide For: Self-care TOWER OBSERVER For: Community Resources Pt Meets Homebound Status: Fatigue w/ amb. POST DISCHARGE ORDERS: Activity Instructions for Disc: Resume previous activity Weight Bearing Status after Di: As tolerated DIET AFTER DISCHARGE: Regular CHECKS AFTER DISCHARGE: Checks after discharge: Check blood press - daily FOLLOW-UP: Follow up with: PCP prn TREATMENT/EQUIPMENT ORDERS: Adaptive Equipment Issued: None CERTIFICATION STATEMENT: Certification Statement: Certification Statement: Based on the above finding, I certify that this patient is confined to the home and needs intermittent intermediate care, physical therapy and/or speech therapy, or continues to need occupational therapy.~ This patient is under my care, and I have initiated the establishment of the plan of care.~ This patient will be followed by myself or a community physician who will periodically review the plan of care. Home Meds Active Scripts Ciprofloxacin Hcl (CIPRO) 500 Mg Tablet, 1 TAB PO BID for enteritis, #14 TAB Prov:ALEX CHAWLA MD 12/29/18 Reported Medications Hydrocodone Bit/Acetaminophen (HYDROCODONE-APAP 7.5-325 ) 1 Tab Tablet, 1 TAB PO PRN Q4HRS PRN for PAIN, TAB 0 Refills 12/27/18 Simvastatin (SIMVASTATIN) 40 Mg Tablet, 1 TAB PO QHS for hypercholesterolemia, # 30 TAB 5 Refills 12/27/18 Ranitidine Hcl (RANITIDINE HCL) 150 Mg Tablet, 2 TAB PO HS for GERD, #180 TAB 3 Refills 12/27/18 Polyethylene Glycol 3350 (POLYETHYLENE GLYCOL 3350) 2,500 Gm Powder, 17 GM PO DAILY for constipation, #527 GM 11 Refills 12/27/18 Metoprolol Tartrate (METOPROLOL TARTRATE) 25 Mg Tablet, 1 TAB PO BID for HTN, # 180 TAB 1 Refill 12/27/18 Losartan Potassium (LOSARTAN POTASSIUM) 50 Mg Tablet, 50 MG PO DAILY for HYPERTENSION, TAB 12/27/18 Gabapentin (GABAPENTIN) 600 Mg Tablet, 600 MG PO HS for NEUROGENIC PAIN, TAB 12/27/18 Gabapentin (GABAPENTIN ) 300 Mg Capsule, 300 MG PO BIDWBKFT/STIVEN for NEUROGENIC PAIN, CAP 12/27/18 Clonazepam (CLONAZEPAM) 0.5 Mg Tablet, 1 TAB PO DAILYWSUP for restless leg syndrome, #30 TAB 12/27/18 Carbidopa/Levodopa (SINEMET 25-100 MG TABLET) 1 Each Tablet, 1 TAB PO BID for tremors, TAB 12/27/18 ALEX CHAWLA MD Dec 29, 2018 08:52
[2018-12-29] MEDS: LACTOBACILLUS RHAMNOSUS GG 1 CAPSULE. PO SCH (09:14)
[2018-12-29] MEDS: CARBIDOPA/LEVODOPA 25/100MG TABLET PO SCH (09:14)
[2018-12-29] MEDS: GABAPENTIN 300 MG CAPSULE. PO SCH ×2 (09:15→11:45)
[2018-12-29] MEDS: LOSARTAN POTASSIUM 50 MG TABLET. PO SCH (09:16)
[2018-12-29] MEDS: METOPROLOL TART IMMED RELEASE 25 MG TABLET. PO SCH (09:16)
[2018-12-29] MEDS: HYDROcodone/APAP 7.5/325MG 1 TAB TABLET PO PRN ×2 (09:16→13:42)
[2018-12-29] MEDS: POLYETHYLENE GLYCOL 3350 17 GM PACKET. PO SCH (09:17)
[2018-12-29 10:11] LABS: HEMATOCRIT 39.5 % (36.0-47.0); HEMOGLOBIN 12.8 g/dL (12.0-15.5); RED BLOOD COUNT 4.88 x10^6/uL (3.50-5.40); RED CELL DISTRIBUTION WIDTH 15.7 % (11.5-14.5); WHITE BLOOD COUNT 6.3 x10^3/uL (4.0-11.0)
--- NOTE | 2018-12-29 10:18 | PDOC3 ---
Discharge Summary Visit Information Date of Admission: Dec 26, 2018 Date of Discharge: Dec 29, 2018 Admitting Diagnosis Comment: Enteritis by CAT scan and clinically Diarrhea Generalized weakness-[place] resident, home health on discharge DNR Final Diagnosis Problems Medical Problems: (1) Enteritis Status: Acute (2) Urinary tract infection Status: Acute Brief Hospital Course Allergies Allergies Coded Allergies Type Severity Reaction Last Updated Verified Sulfa (Sulfonamide Antibiotics) Allergy Unknown 11/15/18 Yes codeine Allergy Unknown 11/15/18 Yes metronidazole Allergy Unknown 11/15/18 Yes Vital Signs Vital Signs Date Time Temp Pulse Resp B/P (MAP) Pulse Ox O2 Delivery O2 Flow Rate FiO2 12/29/18 09:16 84 139/73 12/29/18 09:16 18 96 Room Air 2.0 12/29/18 07:00 98.3 98.3 Lab Results Laboratory Tests Test 12/29/18 10:00 White Blood Count 6.3 x10^3/uL (4.0-11.0) Red Blood Count 4.88 x10^6/uL (3.50-5.40) Hemoglobin 12.8 g/dL (12.0-15.5) Hematocrit 39.5 % (36.0-47.0) Mean Corpuscular Volume 81 fL (79-100) Mean Corpuscular Hemoglobin 26 pg (25-35) Mean Corpuscular Hemoglobin Concent 32 g/dL (31-37) Red Cell Distribution Width 15.7 % (11.5-14.5) Platelet Count 222 x10^3/uL (140-400) Laboratory Tests Test 12/29/18 10:00 White Blood Count 6.3 x10^3/uL (4.0-11.0) Red Blood Count 4.88 x10^6/uL (3.50-5.40) Hemoglobin 12.8 g/dL (12.0-15.5) Hematocrit 39.5 % (36.0-47.0) Mean Corpuscular Volume 81 fL (79-100) Mean Corpuscular Hemoglobin 26 pg (25-35) Mean Corpuscular Hemoglobin Concent 32 g/dL (31-37) Red Cell Distribution Width 15.7 % (11.5-14.5) Platelet Count 222 x10^3/uL (140-400) Brief Hospital Course Ms. Holloway is a 88 old white female with good ADLs and IADLs, came from [place]. Few days history of diarrhea. Enteritis on CAT scan. Comanagement with GI. Got better with conservative treatment and IV Cipro. DNR Some mild potassium 3.4 replaced. Going back to [facility] with home health Son involved with her care No more diarrhea on discharge PO Cipro for 7 days KCl 401 prior to discharge dc < 30 Discharge Information Condition at Discharge: Improved, Stable Disposition/Orders: D/C to Home w/ HH Scheduled Carbidopa/Levodopa (Sinemet 25-100 Mg Tablet) 1 Each Tablet, 1 TAB PO BID for tremors, (Reported) Entered as Reported by: ESTHER MADRID on 12/27/18213 Last Taken: Unknown Dose on 12/26/18899 Last Action: Continued on 825 by BETH GIORDANO MD Ciprofloxacin Hcl (Cipro) 500 Mg Tablet, 1 TAB PO BID for enteritis, #14 Prescribed by: ALEX CHAWLA on 12/29/18 0851 Clonazepam (Clonazepam) 0.5 Mg Tablet, 1 TAB PO DAILYWSUP for restless leg syndrome, #30 (Reported) Entered as Reported by: ESTHER MADRID on 12/27/18213 Last Taken: Unknown Dose on 12/25/18 170 Last Action: Continued on 399 by ESTHER MADRID Gabapentin (Gabapentin ) 300 Mg Capsule, 300 MG PO BIDWBKFT/STIVEN for NEUROGENIC PAIN, (Reported) Entered as Reported by: ESTHER MADRID on 12/27/18213 Last Taken: Unknown Dose on 12/26/18 1200 Last Action: Continued on 825 by BETH GIORDANO MD Gabapentin (Gabapentin) 600 Mg Tablet, 600 MG PO HS for NEUROGENIC PAIN, ( Reported) Entered as Reported by: ESTHER MADRID on 12/27/18213 Last Taken: Unknown Dose on 12/25/18 2100 Last Action: Converted on 399 by ESTHER MADRID Losartan Potassium (Losartan Potassium) 50 Mg Tablet, 50 MG PO DAILY for HYPERTENSION, (Reported) Entered as Reported by: ESTHER MADRID on 12/27/18213 Last Taken: Unknown Dose on 12/26/18899 Last Action: Continued on 825 by BETH GIORDANO MD Metoprolol Tartrate (Metoprolol Tartrate) 25 Mg Tablet, 1 TAB PO BID for HTN, # 180 Ref 1 (Reported) Entered as Reported by: ESTHER MADRID on 12/27/18213 Last Taken: Unknown Dose on 12/26/18799 Last Action: Continued on 825 by BETH GIORDANO MD Polyethylene Glycol 3350 (Polyethylene Glycol 3350) 2,500 Gm Powder, 17 GM PO DAILY for constipation, #527 Ref 11 (Reported) Entered as Reported by: ESTHER MADRID on 12/27/18213 Last Taken: Unknown Dose on 12/26/18899 Last Action: Converted on 825 by BETH GIORDANO MD Ranitidine Hcl (Ranitidine Hcl) 150 Mg Tablet, 2 TAB PO HS for GERD, #180 Ref 3 (Reported) Entered as Reported by: ESTHER MADRID on 12/27/18213 Last Taken: Unknown Dose on 12/25/182099 Last Action: Converted on 825 by BETH GIORDANO MD Simvastatin (Simvastatin) 40 Mg Tablet, 1 TAB PO QHS for hypercholesterolemia, # 30 Ref 5 (Reported) Entered as Reported by: ESTHER MADRID on 12/27/18213 Last Taken: Unknown Dose on 12/25/182099 Last Action: Converted on 825 by BETH GIORDANO MD Scheduled PRN Hydrocodone Bit/Acetaminophen (Hydrocodone-Apap 7.5-325 ) 1 Tab Tablet, 1 TAB PO PRN Q4HRS PRN for PAIN, Ref 0 (Reported) Entered as Reported by: ESTHER MADRID on 12/27/18213 Last Taken: Unknown Dose on 12/25/182099 Last Action: Continued on 399 by ALEX DOW MD Dec 29, 2018 10:18
[2018-12-29 10:29] LABS: CALCIUM 8.7 mg/dL (8.5-10.1); CREATININE 0.8 mg/dL (0.6-1.0); GFR 67.5; POTASSIUM 3.5 mmol/L (3.5-5.1)
[2018-12-29] MEDS ORDERED: POTASSIUM CHLORIDE 20 MEQ TABLET.ER. PO ONE (10:30)
[2018-12-29 11:00] VITALS: BP 126/75
--- NOTE | 2018-12-29 13:00 | NUR ---
Discharge Note: [facility] Discharge instructions and discharge home medications reviewed with Family Member and a copy given. All questions have been answered and understanding verbalized. The following instructions and handouts were given: UTI, enteritis Discontinued lines and drains: peripheral IV line discontinued, no bleeding or bruising, catheter tip intact. Patient discharged to home for self-care, outpatient follow up.
== END 2018-12-29 13:50 | disposition home health service (06) | DRG 690 ==
LOC: ER 16:55 → 5 SOUTH 20:28 → 5 NORTH 12-27 16:30
PROVIDERS: ADMIT Family Medicine; ATTEND Family Medicine
DX: N39.0 Urinary tract infection, site not specified (principal); K52.9 Noninfective gastroenteritis and colitis, unspecified; D17.71 Benign lipomatous neoplasm of kidney; D64.9 Anemia, unspecified; E78.00 Pure hypercholesterolemia, unspecified; G20 Parkinson's disease; G25.81 Restless legs syndrome; G89.29 Other chronic pain; I10 Essential (primary) hypertension; I25.10 Atherosclerotic heart disease of native coronary artery without angina pectoris; K21.9 Gastro-esophageal reflux disease without esophagitis; K59.00 Constipation, unspecified; Z66 Do not resuscitate; G62.9 Polyneuropathy, unspecified; M54.5 Low back pain; Z90.49 Acquired absence of other specified parts of digestive tract; Z90.710 Acquired absence of both cervix and uterus; Z88.2 Allergy status to sulfonamides; Z88.8 Allergy status to other drugs, medicaments and biological substances; Z79.899 Other long term (current) drug therapy
CPT/HCPCS: 36415; 71045; 74177; 80048; 80053; 80307; 81001; 82553; 83690; 83735; 83880; 84443; 84484; 85025; 85027; 85610; 87086; 87804; 93005; 96361; 96365; 96375; J0744; J2405; J3010; J3490; J7030; Q9967; 97530; 99285-25

== ENCOUNTER → 2019-02-17 | Outpatient (CLI) | payer MEDICARE ==
[~2019-02-17] MED LIST changes: +CARB1TAB2 PO; +CIPR500T94 PO; +CLON0.5T11 PO; +GABA300C18 PO; +GABA600T7 PO; +HYDR-2765 PO; +LOSA-73 PO; +METO25TA4 PO; +POLY2500 PO; +RANI150T2 PO; +SIMV40TA3 PO
--- NOTE | 2019-02-17 11:26 | KCIC ---
MRI Lumbar Spine without contrast History: [facility] Technique: Multiplanar, multi sequential noncontrast MR imaging was performed of the lumbar spine. Comparison: March 17, 2013 Findings: Lumbar vertebral body stature is overall preserved. There is advanced degenerative disc disease L2-3 through L5-S1, mild to moderate degenerative disc disease at L1-L2. Degenerative disc disease at L1-2 and L2-3 has progressed in the interval. There is endplate edema greatest at L1-L2, to lesser degree at L2-3 and L3-4 probably reactive/degenerative in etiology, progressed most notable of L1-2. There is no significant fluid in the intervertebral disc spaces. There is now negligible anterior spondylolisthesis at L1-L2. Conus terminates at L2-3. There is mild lumbar levoscoliosis. L1-L2: There is new posterior bulge, mild indentation on the ventral thecal sac greater in the far right lateral recess. There is very mild narrowing of the far right lateral recess. There is mild facet hypertrophic change and buckling of the ligamentum flavum. There is mild narrowing of the right neural foramen greater than previously, left neural foramen adequate. L2-L3: There is again broad posterior disc osteophyte complex and shallow bulge with mild indentation upon the ventral thecal sac, spinal canal not significantly narrowed. Neural foramina are overall adequate. L3-L4: There is again minimal broad posterior disc osteophyte complex. There is [id number] facet degenerative change and minimal buckling of the ligamentum flavum. There is again mild indentation upon the ventral thecal sac, very mild narrowing of the far left lateral recess, disc osteophyte complex again near the descending L4 nerve roots bilaterally without displacement. There is mild narrowing of the right neural foramen, left neural foramen overall adequate. L4-L5: There is again disc osteophyte complex somewhat greater in the left lateral recess. There is left laminectomy defect. There is facet degenerative change. There is again mild narrowing of the far left lateral recess. There is moderate to severe narrowing of the left neural foramen by disc osteophyte complex and facet with contact of the exiting left L4 nerve root, degree of narrowing greater slightly greater in interval. Disc osteophyte complex is also near the extraforaminal left L4 nerve root without displacement. Right neural foramen is overall adequate. L5-S1: There is again minimal disc osteophyte complex, no significant impingement of the descending S1 nerve roots. Spinal canal is overall adequate. There is mild facet degenerative change. There is fairly severe left and mild to moderate right neural foramina compromise as seen previously, contact of the exiting L5 nerve roots greater on the left. Neural foramina compromise is due to to disc osteophyte complex and facet degenerative change. Impression: 1. Comparing with the 2013 exam, there has been progression of degenerative disc disease at L1-L2 and L2-3, endplate edema at these levels most notable at L1-L2 more likely be reactive/degenerative in etiology, no significant fluid in the intervertebral disc space as would be more commonly associated with infectious spondylitis. There is advanced degenerative disc disease L2-3 through L5-S1, also multilevel mild spondylosis. 2. There is some variable mild lateral recess stenosis as stated, no new significant lumbar spinal stenosis. 3. There is neural foramina compromise as stated, more significant narrowing on the left at L5-S1 and L4-5, to a lesser degree on the right at L5-S1. Electronically signed by: Soy Toney MD (02/17/2019 11:22 AM) [facility]
== END | disposition home or self-care (01) ==
LOC: KCIC MRI 09:53
PROVIDERS: ATTEND Anesthesiology Pain Medicine
DX: M51.37 Other intervertebral disc degeneration, lumbosacral region (principal); M51.16 Intervertebral disc disorders with radiculopathy, lumbar region; M47.817 Spondylosis without myelopathy or radiculopathy, lumbosacral region; M47.26 Other spondylosis with radiculopathy, lumbar region; M43.16 Spondylolisthesis, lumbar region; M48.07 Spinal stenosis, lumbosacral region; M25.78 Osteophyte, vertebrae; M89.38 Hypertrophy of bone, other site
CPT/HCPCS: 72148

== ENCOUNTER 2019-07-14 19:14 | Inpatient (IN) | payer MEDICARE ==
[~2019-07-14] VITALS: Ht 165.1 cm; Wt 51.5 kg
[~2019-07-14 19:14] MED LIST changes: +CLON-77 PO; -CLON0.5T11 PO; +SIMV40TA18 PO; -SIMV40TA3 PO
[2019-07-14] MEDS ORDERED: ONDANSETRON PF 4 MG/2 ML VIAL. ONE (19:44)
[2019-07-14] MEDS ORDERED: METHYLNALTREXONE 12 MG/0.6 ML VIAL. SQ ONE (19:45)
[2019-07-14] MEDS ORDERED: ONDANSETRON PF 4 MG/2 ML VIAL. IV ONE (20:00)
[2019-07-14 20:36] LABS: BASO # 0.1 x10^3/uL (0.0-0.2); BASO % 1 % (0-3); EOS % 0 % (0-3); HEMATOCRIT 42.7 % (36.0-47.0); HEMOGLOBIN 14.3 g/dL (12.0-15.5); LYMPH # 0.9 x10^3/uL (1.0-4.8); LYMPH % 10 % (24-48); MEAN CORPUSCULAR HEMOGLOBIN 27 pg (25-35); MEAN CORPUSCULAR HGB CONC 34 g/dL (31-37); MEAN CORPUSCULAR VOLUME 80 fL (79-100); MONO # 0.5 x10^3/uL (0.0-1.1); MONO % 6 % (0-9); NEUT # 7.8 x10^3/uL (1.8-7.7); NEUT % 84 % (31-73); PLATELET COUNT 198 x10^3/uL (140-400); RED BLOOD COUNT 5.36 x10^6/uL (3.50-5.40); RED CELL DISTRIBUTION WIDTH 15.6 % (11.5-14.5); WHITE BLOOD COUNT 9.3 x10^3/uL (4.0-11.0)
[2019-07-14 20:36] LABS: BILIRUBIN,URINE NEGATIVE (NEG); CLARITY,URINE CLOUDY; COLOR,URINE YELLOW; NITRITE,URINE NEGATIVE (NEG); PH,URINE 8.5; PROTEIN,URINE 30 mg/dL (NEG-TRACE)
[2019-07-14 20:40] LABS: AMORPHOUS SEDIMENT,UR PRESENT /HPF; BACTERIA,URINE 0 /HPF (0-FEW); RBC,URINE 0 /HPF (0-2); WBC,URINE OCC /HPF (0-4)
[2019-07-14 20:44] LABS: CALCIUM 10.2 mg/dL (8.5-10.1); CREATININE 0.9 mg/dL (0.6-1.0); POTASSIUM 3.9 mmol/L (3.5-5.1)
[2019-07-14 20:50] LABS: ALBUMIN 4.6 g/dL (3.4-5.0); ALBUMIN/GLOBULIN RATIO 1.6 (1.0-1.7); TOTAL BILIRUBIN 0.7 mg/dL (0.2-1.0); TOTAL PROTEIN 7.5 g/dL (6.4-8.2)
[2019-07-14] MEDS ORDERED: CONTRAST GIVEN. MC PRN (21:00)
[2019-07-14] MEDS ORDERED: IOHEXOL 300 MG/ML 100ML VIAL. IV ONE (21:00)
--- NOTE | 2019-07-14 21:14 | RAD ---
PQRS Compliance statement: One or more of the following individualized dose reduction techniques were utilized for this examination: 1. Automated exposure control. 2. Adjustment of the mA and/or kV according to patient size. 3. Use of iterative reconstruction technique. Indication:Abdominal pain. TECHNIQUE: CT abdomen and pelvis with IV contrast with multiplanar reformats. COMPARISON: 12/26/2018 FINDINGS: Heart is moderately enlarged in size. No pericardial or pleural effusion. Multifocal groundglass nodular opacities are seen in the visualized lung bases. Liver, spleen, pancreas, adrenals and right kidney within normal limits. Simple cyst in the left kidney. Status post cholecystectomy. No enlarged retroperitoneal or pelvic adenopathy. Moderate diffuse atherosclerotic plaque in the abdominal aorta. No free pelvic fluid or ascites. Large diffuse colonic stool burden. Stomach is markedly distended with large volume fluid. No bowel obstruction. No pneumoperitoneum. Status post hysterectomy. Urinary bladder demonstrates no radiopaque stone. No suspicious bony lesion. IMPRESSION: 1. Large amount of diffuse colonic stool burden, patient may be constipated. Evidence of bowel obstruction. 2. Distended stomach with large amount of fluid, nonspecific. Correlate for recent high-volume fluid ingestion. 3. Bilateral lung bases abnormality likely infectious or aspiration. Electronically signed by: Thong Interiano DO (07/14/2019 9:11 PM) [facility]
[2019-07-14] MEDS ORDERED: ONDANSETRON PF 4 MG/2 ML VIAL. IV PRN (22:00)
[2019-07-14] MEDS ORDERED: ACETAMINOPHEN 325 MG TABLET. PO PRN (22:00)
--- NOTE | 2019-07-14 22:01 | RAD ---
Exam: Abdomen one view INDICATION: Constipated TECHNIQUE: Frontal view of the abdomen Comparisons: None FINDINGS: Air and stool are seen throughout the colon to the level of the rectum in a nonobstructive bowel gas pattern. There is a large stool burden at the rectum. Surgical clips from prior cholecystectomy are seen. Severe degenerative change lumbar spine. IMPRESSION: Nonobstructive bowel gas pattern with a large stool burden at the rectum. Electronically signed by: Loreta Yang MD (07/14/2019 9:59 PM) [facility]
[2019-07-14] MEDS ORDERED: IV NORMAL SALINE 1000ML BAG 1,000 ML IV ONE (22:45)
[2019-07-14] MEDS ORDERED: dilTIAZem IV PUSH 25 MG/5 ML VIAL IVP ONE (22:45)
--- NOTE | 2019-07-14 22:58 | PHYS DOC ---
Past Medical History Past Medical History: GERD, Hypertension Additional Past Medical Histor: NEUROPATHY, RLS Past Surgical History: No Surgical History Alcohol Use: None Drug Use: None Adult General Chief Complaint Chief Complaint: GI PROBLEM HPI HPI Patient is an 88-year-old female who states she is on quite a bit of pain medicine who presents with abdominal discomfort, constipation and some nausea and vomiting today. She states she feels like her abdomen is swollen tonight. She denies any fever chills or sweats. She states that she has taken MiraLAX and magnesium citrate at home without much relief. She denies any melena or hematemesis or hematochezia.[] Review of Systems Review of Systems Constitutional: Denies fever or chills [] Eyes: Denies change in visual acuity, redness, or eye pain [] HENT: Denies nasal congestion or sore throat [] Respiratory: Denies cough or shortness of breath [] Cardiovascular: No additional information not addressed in HPI [] GI: Denies abdominal pain, nausea, vomiting, bloody stools or diarrhea [] : Denies dysuria or hematuria [] Musculoskeletal: Denies back pain or joint pain [] Integument: Denies rash or skin lesions [] Neurologic: Denies headache, focal weakness or sensory changes [] Endocrine: Denies polyuria or polydipsia [] All other systems were reviewed and found to be within normal limits, except as documented in this note. Current Medications Current Medications Current Medications Medications (Trade) Dose Ordered Sig/Glen Start Time Stop Time Status Last Admin Dose Admin Acetaminophen (Tylenol) 650 mg PRN Q4HRS PRN 07/14/19 22:00 07/15/19 21:59 Diltiazem HCl (Cardizem Iv Push) 20 mg 1X ONCE 07/14/19 22:45 07/14/19 22:46 Fentanyl Citrate (Fentanyl 2ml Vial) 50 mcg PRN Q4HRS PRN 07/14/19 22:00 07/15/19 21:59 Info (CONTRAST GIVEN -- Rx MONITORING) 1 each PRN DAILY PRN 07/14/19 21:00 07/16/19 20:59 Iohexol (Omnipaque 300 Mg/ml) 60 ml 1X ONCE 07/14/19 21:00 07/14/19 21:01 DC 07/14/19 21:07 60 ML Methylnaltrexone [place] (Relistor) 12 mg 1X ONCE 07/14/19 19:45 07/14/19 19:46 DC 07/14/19 20:17 12 MG Ondansetron HCl (Zofran) 4 mg PRN Q8HRS PRN 07/14/19 22:00 07/15/19 21:59 Sodium Chloride 1,000 ml @ 1,000 mls/hr 1X ONCE 07/14/19 22:45 07/14/19 23:44 Allergies Allergies Allergies Coded Allergies Type Severity Reaction Last Updated Verified Sulfa (Sulfonamide Antibiotics) Allergy Unknown 11/15/18 Yes codeine Allergy Unknown 11/15/18 Yes metronidazole Allergy Unknown 11/15/18 Yes Physical Exam Physical Exam Constitutional: Well developed, well nourished, no acute distress, non-toxic appearance. [] HENT: Normocephalic, atraumatic, bilateral external ears normal, oropharynx moist, no oral exudates, nose normal. [] Eyes: PERRLA, EOMI, conjunctiva normal, no discharge. [] Neck: Normal range of motion, no tenderness, supple, no stridor. [] Cardiovascular:Heart rate regular rhythm, no murmur [] Lungs & Thorax: Bilateral breath sounds clear to auscultation [] Abdomen: Mildly distended however there is no tenderness guarding or rebound. [] Skin: Warm, dry, no erythema, no rash. [] Back: No tenderness, no CVA tenderness. [] Extremities: No tenderness, no cyanosis, no clubbing, ROM intact, no edema. [] Neurologic: Alert and oriented X 3, normal motor function, normal sensory function, no focal deficits noted. [] Psychologic: Anxious. [] Current Patient Data Vital Signs Vital Signs Date Time Temp Pulse Resp B/P (MAP) Pulse Ox O2 Delivery O2 Flow Rate FiO2 07/14/19 19:14 98.0 94 14 146/70 (95) 90 Room Air 98.0 Lab Values Laboratory Tests Test 07/14/19 20:11 07/14/19 20:27 Urine Collection Type U cath Urine Color Yellow Urine Clarity Cloudy Urine pH 8.5 Urine Specific [place] 1.015 Urine Protein 30 mg/dL (NEG-TRACE) Urine Glucose (UA) Negative mg/dL (NEG) Urine Ketones (Stick) Negative mg/dL (NEG) Urine Blood Negative (NEG) Urine Nitrite Negative (NEG) Urine Bilirubin Negative (NEG) Urine Urobilinogen Dipstick 1.0 mg/dL (0.2 mg/dL) Urine Leukocyte Esterase Negative (NEG) Urine RBC 0 /HPF (0-2) Urine WBC Occ /HPF (0-4) Urine Squamous Epithelial Cells None /LPF Urine Amorphous Sediment Present /HPF Urine Bacteria 0 /HPF (0-FEW) White Blood Count 9.3 x10^3/uL (4.0-11.0) Red Blood Count 5.36 x10^6/uL (3.50-5.40) Hemoglobin 14.3 g/dL (12.0-15.5) Hematocrit 42.7 % (36.0-47.0) Mean Corpuscular Volume 80 fL (79-100) Mean Corpuscular Hemoglobin 27 pg (25-35) Mean Corpuscular Hemoglobin Concent 34 g/dL (31-37) Red Cell Distribution Width 15.6 % (11.5-14.5) H Platelet Count 198 x10^3/uL (140-400) Neutrophils (%) (Auto) 84 % (31-73) H Lymphocytes (%) (Auto) 10 % (24-48) L Monocytes (%) (Auto) 6 % (0-9) Eosinophils (%) (Auto) 0 % (0-3) Basophils (%) (Auto) 1 % (0-3) Neutrophils # (Auto) 7.8 x10^3/uL (1.8-7.7) H Lymphocytes # (Auto) 0.9 x10^3/uL (1.0-4.8) L Monocytes # (Auto) 0.5 x10^3/uL (0.0-1.1) Eosinophils # (Auto) 0.0 x10^3/uL (0.0-0.7) Basophils # (Auto) 0.1 x10^3/uL (0.0-0.2) Sodium Level 141 mmol/L (136-145) Potassium Level 3.9 mmol/L (3.5-5.1) Chloride Level 98 mmol/L (98-107) Carbon Dioxide Level 35 mmol/L (21-32) H Anion Gap 8 (6-14) Blood Urea Nitrogen 14 mg/dL (7-20) Creatinine 0.9 mg/dL (0.6-1.0) Estimated GFR (Cockcroft-Gault) 59.0 BUN/Creatinine Ratio 16 (6-20) Glucose Level 149 mg/dL (70-99) H Calcium Level 10.2 mg/dL (8.5-10.1) H Total Bilirubin 0.7 mg/dL (0.2-1.0) Aspartate Amino Transferase (AST) 18 U/L (15-37) Alanine Aminotransferase (ALT) 15 U/L (14-59) Alkaline Phosphatase 90 U/L (46-116) Total Protein 7.5 g/dL (6.4-8.2) Albumin 4.6 g/dL (3.4-5.0) Albumin/Globulin Ratio 1.6 (1.0-1.7) Lipase 108 U/L (73-393) Laboratory Tests 07/14/19 20:27 Laboratory Tests 07/14/19 20:27 EKG EKG [] Interpretation Time: EKG: Atrial fibrillation rate of 152 Radiology/Procedures Radiology/Procedures []PROCEDURE: KUB Exam: Abdomen one view INDICATION: Constipated TECHNIQUE: Frontal view of the abdomen Comparisons: None FINDINGS: Air and stool are seen throughout the colon to the level of the rectum in a nonobstructive bowel gas pattern. There is a large stool burden at the rectum. Surgical clips from prior cholecystectomy are seen. Severe degenerative change lumbar spine. IMPRESSION: Nonobstructive bowel gas pattern with a large stool burden at the rectum. Impressions: PROCEDURE: CT ABD PELV W/ IV CONTRST ONLY PQRS Compliance statement: One or more of the following individualized dose reduction techniques were utilized for this examination: 1. Automated exposure control. 2. Adjustment of the mA and/or kV according to patient size. 3. Use of iterative reconstruction technique. Indication:Abdominal pain. TECHNIQUE: CT abdomen and pelvis with IV contrast with multiplanar reformats. COMPARISON: 12/26/2018 FINDINGS: Heart is moderately enlarged in size. No pericardial or pleural effusion. Multifocal groundglass nodular opacities are seen in the visualized lung bases. Liver, spleen, pancreas, adrenals and right kidney within normal limits. Simple cyst in the left kidney. Status post cholecystectomy. No enlarged retroperitoneal or pelvic adenopathy. Moderate diffuse atherosclerotic plaque in the abdominal aorta. No free pelvic fluid or ascites. Large diffuse colonic stool burden. Stomach is markedly distended with large volume fluid. No bowel obstruction. No pneumoperitoneum. Status post hysterectomy. Urinary bladder demonstrates no radiopaque stone. No suspicious bony lesion. IMPRESSION: 1. Large amount of diffuse colonic stool burden, patient may be constipated. Evidence of bowel obstruction. 2. Distended stomach with large amount of fluid, nonspecific. Correlate for recent high-volume fluid ingestion. 3. Bilateral lung bases abnormality likely infectious or aspiration. Course & Med Decision Making Course & Med Decision Making Pertinent Labs and Imaging studies reviewed. (See chart for details) [ED course: Evaluation reveals an 88-year-old female who states she takes pain medicine with history of abdominal pain and constipation. She was given Relistor or during her stay in the department. She shortly then began having large volume of soft stool. Her CT and KUB demonstrated a large stool burning in the large intestine and a nonobstructive bowel gas pattern. During all of her diarrhea and moving around in the bed she developed what appeared to be atrial fibrillation. IV fluids and 20 of Cardizem were given. Patient will be admitted for bowel cleansing and close monitoring of her atrial fibrillation.] Dragon Disclaimer Dragon Disclaimer This electronic medical record was generated, in whole or in part, using a voice recognition dictation system. Departure Departure Impression: Primary Impression: Abdominal pain Additional Impressions: Constipation Atrial fibrillation with tachycardic ventricular rate Disposition: ADMITTED INPATIENT Admitting Physician: FLOR Condition: GUARDED Referrals: BETSEY DA SILVA MD (PCP) Problem Qualifiers Primary Impression: Abdominal pain Abdominal location: unspecified location Qualified Codes: R10.9 - Unspecified abdominal pain Additional Impressions: Constipation Constipation type: drug induced constipation Qualified Codes: K59.03 - Drug induced constipation MARK PANTOJA DO Jul 14, 2019 22:58
[2019-07-14] MEDS ORDERED: dilTIAZem INJ 125 MG in IV DEXTROSE 5% 100ML 100 ML IV PRN (23:00)
[2019-07-15] VITALS (20 sets, daily range): BP systolic 80–129; BP diastolic 40–76
[2019-07-15] MEDS ORDERED: CLON0.5T PO (00:58)
[2019-07-15] MEDS ORDERED: CARB1TAB22 PO (00:58)
--- NOTE | 2019-07-15 01:00 | NUR ---
Admit from ED via gurney. A/O x 4. 2 person assist to transfer from [facility] [place] to bed. Patient admit for constipation. Patient reports she has arthritic back pain and take " a lot of pain meds". Patient has a great deal of back pain on admit to the unit. A-Fib noted on the monitor. Cardizem drip ordered. Orientated to unit and call light. Reviewed POC. Verbalized understanding. Resting in bed with call light at hand.
[2019-07-15] MEDS: IV NORMAL SALINE 1000ML BAG 1,000 ML IV SCH ×3 (01:10→14:47)
[2019-07-15] MEDS: fentaNYL PF VIAL 100 MCG/2 ML VIAL IV PRN ×4 (01:42→20:30)
[2019-07-15] MEDS ORDERED: LIDOCAINE (700MG/PATCH) PATCH. TD ONE (03:15)
[2019-07-15] MEDS ORDERED: HYDROcodone/APAP 10/325 1 TAB TABLET PO ONE (03:15)
--- NOTE | 2019-07-15 03:39 | NUR ---
Patient continues with a great deal of back pain in spite of Fentanyl 50mcg IVP. "I am just miserable" . Patient reports she takes 2 hydrocodone 10/325 tabs at home. Spoke to Dr Valenzuela referencing patient pain. Orders given for one time dose of Hydrocodone 10/325 po 1 tab and a Lidoderm patch. Medications administered as ordered. Patient resting in bed with call light at hand.
[2019-07-15 06:03] LABS: BASO % 0 % (0-3); EOS % 0 % (0-3); HEMATOCRIT 39.5 % (36.0-47.0); HEMOGLOBIN 13.4 g/dL (12.0-15.5); LYMPH # 0.5 x10^3/uL (1.0-4.8); LYMPH % 6 % (24-48); MEAN CORPUSCULAR HEMOGLOBIN 27 pg (25-35); MEAN CORPUSCULAR HGB CONC 34 g/dL (31-37); MEAN CORPUSCULAR VOLUME 80 fL (79-100); MONO # 0.6 x10^3/uL (0.0-1.1); MONO % 7 % (0-9); NEUT # 7.6 x10^3/uL (1.8-7.7); NEUT % 86 % (31-73); PLATELET COUNT 182 x10^3/uL (140-400); RED BLOOD COUNT 4.97 x10^6/uL (3.50-5.40); RED CELL DISTRIBUTION WIDTH 15.2 % (11.5-14.5); WHITE BLOOD COUNT 8.8 x10^3/uL (4.0-11.0)
[2019-07-15 06:23] LABS: ALBUMIN 3.7 g/dL (3.4-5.0); ALBUMIN/GLOBULIN RATIO 1.4 (1.0-1.7); CALCIUM 9.2 mg/dL (8.5-10.1); CREATININE 1.1 mg/dL (0.6-1.0); GFR 46.8; POTASSIUM 3.3 mmol/L (3.5-5.1); TOTAL BILIRUBIN 1.3 mg/dL (0.2-1.0); TOTAL PROTEIN 6.4 g/dL (6.4-8.2)
[2019-07-15 07:01] LABS: % BANDS 18 % (0-9); % BASOS 1 % (0-3); % LYMPHS 6 % (24-48); % MONOS 7 % (0-10); % SEGS 68 % (35-66)
[2019-07-15 07:02] LABS: ANISOCYTOSIS PRESENT
[2019-07-15 07:04] LABS: MICROCYTOSIS PRESENT
[2019-07-15 07:10] LABS: PLT ESTIMATE ADEQUATE (ADEQUATE)
[2019-07-15] MEDS ORDERED: HYDROcodone/APAP 10/325 1 TAB TABLET PO PRN (11:15)
--- NOTE | 2019-07-15 12:22 | HP ---
ADMIT DATE: 07/14/2019 CHIEF COMPLAINT: Abdominal pain. HISTORY OF PRESENT ILLNESS: The patient is a pleasant 88-year-old female who states she takes 10 mg of Percocet 4 times a day. I think because of that, she is basically constipated. She has abdominal pain and nausea. She had some vomiting. While in the ER, we noticed that she is quite constipated. She got some Relistor, that seems to have helped now. Her bowels are moving, but she is now converted to AFib. We have placed her on a Cardizem drip. The patient is now being examined on the telemetry floor. PAST MEDICAL HISTORY: GERD, hypertension, neuropathy, RLS and back pain. ALLERGIES: SULFA, CODEINE AND METRONIDAZOLE. FAMILY HISTORY: Diabetes. SOCIAL HISTORY: I think she lives at a facility. She does not drink, smoke or take drugs. MEDICATIONS: Reviewed, please refer to the MRAD. REVIEW OF SYSTEMS: GENERAL: No history of weight change, weakness or fevers. SKIN: No bruising, hair changes or rashes. EYES: No blurred, double or loss of vision. NOSE AND THROAT: No history of nosebleeds, hoarseness or sore throat. HEART: No history of palpitations, chest pain or shortness of breath on exertion. LUNGS: Denies cough, hemoptysis, wheezing or shortness of breath. GASTROINTESTINAL: Denies changes in appetite, nausea, vomiting, diarrhea or constipation. The patient complains of abdominal pain. GENITOURINARY: No history of frequency, urgency, hesitancy or nocturia. NEUROLOGIC: Denies history of numbness, tingling, tremor or weakness. PSYCHIATRIC: No history of panic, anxiety or depression. ENDOCRINE: No history of heat or cold intolerance, polyuria or polydipsia. EXTREMITIES: Denies muscle weakness, joint pain, pain on walking or stiffness. The patient complains of back pain. PHYSICAL EXAMINATION: VITALS: Within normal limits and are stable. GENERAL: No apparent distress. Alert and oriented. HEENT: Head is normocephalic, atraumatic, pupils were equally round and reactive to light and accommodation. NECK: Supple, no JVD, no thyromegaly was noted. LUNGS: Clear to auscultation in all lung zuniga without rhonchi or wheezing. HEART: RRR, S1, S2 present. Peripheral pulses intact, no obvious murmurs were noted. ABDOMEN: Soft, nontender. Positive bowel sounds no organomegaly, normal bowel sounds. EXTREMITIES: Without any cyanosis, clubbing, or edema. Pedal pulses intact, Homans sign is negative. NEUROLOGIC: Normal speech, normal tone. A & O x3, moves all extremities, no obvious focal deficits. PSYCHIATRIC: Normal affect, normal mood. Stable. SKIN: No ulcerations or rashes, good skin turgor, no jaundice. VASCULAR: Good capillary refill, neurovascular bundle appears to be intact. LABORATORY DATA: Hematology is normal. Electrolytes are normal other than potassium of 3.3. ASSESSMENT AND PLAN: New onset atrial fibrillation with rapid ventricular response in an elderly female who has hypokalemia and constipation. The patient has been admitted. We will consult Cardiology and GI. Serial enzymes, serial EKGs, echocardiogram, DVT prophylaxis, full code, frequent labs, PT, OT, Cardizem drip. MEGHNA BAUGH DO DR: CATARINO/go JOB#: [id number] / [id number]
[2019-07-15 12:36] LABS: MAGNESIUM 1.8 mg/dL (1.8-2.4)
[2019-07-15 12:43] LABS: CHOLESTEROL/HDL RATIO 1.8
--- NOTE | 2019-07-15 13:13 | PDOC2 ---
DELIA STRINGER SLEEP SCIENTIST 07/15/19 1313: CARDIAC CONSULT DATE OF CONSULT Date of Consult DATE: 07/15/19 TIME: 13:07 REASON FOR CONSULT Reason for Consult: AFIB REFERRING PHYSICIAN Referring Physician: Rajeev SOURCE Source: Chart review, Patient HISTORY OF PRESENT ILLNESS HISTORY OF PRESENT ILLNESS This is a pleasant 88 yo female admitted for complains of abdominal pain and nausea and vomiting. Upon admission she was noted with significant constipation relieved eventaully by significant evacuation. She is presently better and no further vomiting or abdominal pain after significant BM. Also as inpt she was noted with AFIB RVR. She does not have hx of AFIB and presently she is on cardizem drip and is converting to SR. No known hx of syncope, CHF, CAD. No prior hx of falls or any recent injury. She lives in an assited living facility. Denies any chest pain , SOA. She is not on any ASA at home. Denies any palpitations, no CP nor SOA. PAST MEDICAL HISTORY Cardiovascular: HTN, Hyperlipidemia CENTRAL NERVOUS SYSTEM: Periperal neuropathy, Other (Parkinsons; RLS) GI: Constipation, GERD Hepatobiliary: Cholelithiasis Renal/: UTI PAST SURGICAL HISTORY Past Surgical History: Cholecystectomy, Cataract Removal, Hysterectomy FAMILY HISTORY Family History noncontributory to age SOCIAL HISTORY Smoke: No ALCOHOL: none Drugs: None Lives: Alone CURRENT MEDICATIONS CURRENT MEDICATIONS Current Medications Medications (Trade) Dose Ordered Sig/Glen Route PRN Reason Start Time Stop Time Status Last Admin Dose Admin Methylnaltrexone [place] (Relistor) 12 mg 1X ONCE SQ 07/14/19 19:45 07/14/19 19:46 DC 07/14/19 20:17 Ondansetron HCl (Zofran) 4 mg 1X ONCE IV 07/14/19 20:00 07/14/19 20:01 DC 07/14/19 20:00 Iohexol (Omnipaque 300 Mg/ml) 60 ml 1X ONCE IV 07/14/19 21:00 07/14/19 21:01 DC 07/14/19 21:07 Ondansetron HCl (Zofran) 4 mg PRN Q8HRS PRN IV NAUSEA/VOMITING 07/14/19 22:00 07/15/19 21:59 07/15/19 01:42 Fentanyl Citrate (Fentanyl 2ml Vial) 50 mcg PRN Q4HRS PRN IV PAIN 07/14/19 22:00 07/15/19 21:59 07/15/19 10:29 Sodium Chloride 1,000 ml @ 125 mls/hr Q8H IV 07/14/19 22:00 07/15/19 21:59 07/15/19 05:19 Diltiazem HCl (Cardizem Iv Push) 20 mg 1X ONCE IVP 07/14/19 22:45 07/14/19 22:46 DC 07/14/19 23:01 Sodium Chloride 1,000 ml @ 1,000 mls/hr 1X ONCE IV 07/14/19 22:45 07/14/19 23:44 DC 07/14/19 22:54 Diltiazem HCl 125 mg/Dextrose 125 ml @ 5 mls/hr CONT PRN IV SEE I/O RECORD 07/14/19 23:00 07/15/19 01:54 Acetaminophen/ Hydrocodone Bitart (Lortab 10/325) 1 tab 1X ONCE PO 07/15/19 03:15 07/15/19 03:16 DC 07/15/19 03:08 Lidocaine (Lidoderm) 1 patch 1X ONCE TD 07/15/19 03:15 07/15/19 03:16 DC 07/15/19 03:08 Acetaminophen/ Hydrocodone Bitart (Lortab 10/325) 1 tab PRN Q6HRS PRN PO MODERATE PAIN, SEVERE PAIN 07/15/19 11:15 07/15/19 11:20 ALLERGIES ALLERGIES: Coded Allergies: Sulfa (Sulfonamide Antibiotics) (Verified Allergy, Intermediate, 07/15/19) codeine (Verified Allergy, Intermediate, 07/15/19) metronidazole (Verified Allergy, Intermediate, 07/15/19) ROS Review of System 14 point ROS evaluated with pertinent positives noted per HPI PHYSICAL EXAM General: Alert, Oriented X3, Cooperative, No acute distress HEENT: Atraumatic, Mucous membr. moist/pink Lungs: Clear to auscultation Heart: Regular rate (SR), Normal S1, Normal S2, Other (3/6 systolic murmur to LLS border) Abdomen: Soft, Other (basilar cracles) Extremities: No cyanosis, No edema Skin: No breakdown, No significant lesion Neuro: Normal speech, Sensation intact Psych/Mental Status: Mental status NL, Mood NL MUSCULOSKELETAL: Osteoarthritic changes both hands VITALS/I&O VITALS/I&O: Vital Signs Date Time Temp Pulse Resp B/P (MAP) Pulse Ox O2 Delivery O2 Flow Rate FiO2 07/15/19 11:20 94 Nasal Cannula 4.0 07/15/19 11:00 97.9 88 22 122/58 (79) 97.9 I & O 07/14/19 07/14/19 07/15/19 15:00 23:00 07:00 Intake Total 1000 ml Output Total 125 ml Balance 875 ml LABS Lab: Laboratory Tests Test 07/14/19 20:11 07/14/19 20:27 07/15/19 02:52 07/15/19 05:50 Urine Collection Type U cath Urine Color Yellow Urine Clarity Cloudy Urine pH 8.5 Urine Specific Duff 1.015 Urine Protein 30 mg/dL (NEG-TRACE) Urine Glucose (UA) Negative mg/dL (NEG) Urine Ketones (Stick) Negative mg/dL (NEG) Urine Blood Negative (NEG) Urine Nitrite Negative (NEG) Urine Bilirubin Negative (NEG) Urine Urobilinogen Dipstick 1.0 mg/dL (0.2 mg/dL) Urine Leukocyte Esterase Negative (NEG) Urine RBC 0 /HPF (0-2) Urine WBC Occ /HPF (0-4) Urine Squamous Epithelial Cells None /LPF Urine Amorphous Sediment Present /HPF Urine Bacteria 0 /HPF (0-FEW) White Blood Count 9.3 x10^3/uL (4.0-11.0) 8.8 x10^3/uL (4.0-11.0) Red Blood Count 5.36 x10^6/uL (3.50-5.40) 4.97 x10^6/uL (3.50-5.40) Hemoglobin 14.3 g/dL (12.0-15.5) 13.4 g/dL (12.0-15.5) Hematocrit 42.7 % (36.0-47.0) 39.5 % (36.0-47.0) Mean Corpuscular Volume 80 fL (79-100) 80 fL (79-100) Mean Corpuscular Hemoglobin 27 pg (25-35) 27 pg (25-35) Mean Corpuscular Hemoglobin Concent 34 g/dL (31-37) 34 g/dL (31-37) Red Cell Distribution Width 15.6 % (11.5-14.5) H 15.2 % (11.5-14.5) H Platelet Count 198 x10^3/uL (140-400) 182 x10^3/uL (140-400) Neutrophils (%) (Auto) 84 % (31-73) H 86 % (31-73) H Lymphocytes (%) (Auto) 10 % (24-48) L 6 % (24-48) L Monocytes (%) (Auto) 6 % (0-9) 7 % (0-9) Eosinophils (%) (Auto) 0 % (0-3) 0 % (0-3) Basophils (%) (Auto) 1 % (0-3) 0 % (0-3) Neutrophils # (Auto) 7.8 x10^3/uL (1.8-7.7) H 7.6 x10^3/uL (1.8-7.7) Lymphocytes # (Auto) 0.9 x10^3/uL (1.0-4.8) L 0.5 x10^3/uL (1.0-4.8) L Monocytes # (Auto) 0.5 x10^3/uL (0.0-1.1) 0.6 x10^3/uL (0.0-1.1) Eosinophils # (Auto) 0.0 x10^3/uL (0.0-0.7) 0.0 x10^3/uL (0.0-0.7) Basophils # (Auto) 0.1 x10^3/uL (0.0-0.2) 0.0 x10^3/uL (0.0-0.2) Sodium Level 141 mmol/L (136-145) 144 mmol/L (136-145) Potassium Level 3.9 mmol/L (3.5-5.1) 3.3 mmol/L (3.5-5.1) L Chloride Level 98 mmol/L (98-107) 103 mmol/L (98-107) Carbon Dioxide Level 35 mmol/L (21-32) H 31 mmol/L (21-32) Anion Gap 8 (6-14) 10 (6-14) Blood Urea Nitrogen 14 mg/dL (7-20) 20 mg/dL (7-20) Creatinine 0.9 mg/dL (0.6-1.0) 1.1 mg/dL (0.6-1.0) H Estimated GFR (Cockcroft-Gault) 59.0 46.8 BUN/Creatinine Ratio 16 (6-20) 18 (6-20) Glucose Level 149 mg/dL (70-99) H 140 mg/dL (70-99) H Calcium Level 10.2 mg/dL (8.5-10.1) H 9.2 mg/dL (8.5-10.1) Total Bilirubin 0.7 mg/dL (0.2-1.0) 1.3 mg/dL (0.2-1.0) H Aspartate Amino Transferase (AST) 18 U/L (15-37) 22 U/L (15-37) Alanine Aminotransferase (ALT) 15 U/L (14-59) 18 U/L (14-59) Alkaline Phosphatase 90 U/L (46-116) 73 U/L (46-116) Total Protein 7.5 g/dL (6.4-8.2) 6.4 g/dL (6.4-8.2) Albumin 4.6 g/dL (3.4-5.0) 3.7 g/dL (3.4-5.0) Albumin/Globulin Ratio 1.6 (1.0-1.7) 1.4 (1.0-1.7) Lipase 108 U/L (73-393) Troponin I Quantitative 0.026 ng/mL (0.000-0.055) 0.041 ng/mL (0.000-0.055) Segmented Neutrophils % 68 % (35-66) H Band Neutrophils % 18 % (0-9) H Lymphocytes % 6 % (24-48) L Monocytes % 7 % (0-10) Basophils % 1 % (0-3) Platelet Estimate Adequate (ADEQUATE) Large Platelets Few Hypochromasia Anisocytosis Present Microcytosis Present Magnesium Level 1.8 mg/dL (1.8-2.4) Triglycerides Level 53 mg/dL (0-150) Cholesterol Level 128 mg/dL (0-200) LDL Cholesterol, Calculated 44 mg/dL (0-100) VLDL Cholesterol, Calculated 11 mg/dL (0-40) Non-HDL Cholesterol Calculated 55 mg/dL (0-129) HDL Cholesterol 73 mg/dL (40-60) H Cholesterol/HDL Ratio 1.8 Thyroid Stimulating Hormone (TSH) 0.626 uIU/mL (0.358-3.74) Laboratory Tests 07/14/19 20:27 07/15/19 05:50 Laboratory Tests 07/14/19 20:27 07/15/19 05:50 ASSESSMENT/PLAN ASSESSMENT/PLAN 1. AFIB RVR: likely precipitated constipation and vomiting. Converted to SR after significant BM 2. HTN: controlled 3. HLP 4. Abd pain/vomiting with significant constipation: precipitated likely by opioids. Has improved. 5. Hx of parkinsons Recommendations 1. TTE,TSH 2. Currently NPO. Cardizem drip for now and will covert to PO pending EGD. Continue with IVF. 3. Discussed ASA vs NOAC risks and benefits weighing in her risk for falls and injury with parkinsons and advanced age. ASA post EGD and plan for [facility] to note AFIB burden and any potential NOAC regimen. 4. Hold other BP meds for now for rate agent titration. BP is currently marginal. FREDDY MOORE MD 07/15/19 1751: CARDIAC CONSULT ASSESSMENT/PLAN ASSESSMENT/PLAN (1) DELIA STRINGER APRN Jul 15, 2019 13:13 FREDDY MOORE MD Jul 15, 2019 17:51 1: Patient seen and examined. Agree with above nurse practitioner note. 88-year-old woman with possible bowel obstruction and currently undergoing GI evaluation with paroxysmal atrial fibrillation. No need for an to regulation at this time. Continue intravenous calcium channel blockers and consider oral regimen tomorrow depending on her heart rate. Check routine echocardiogram. Agree with outpatient monitoring. Supportive care. Thank you for this consultation.
--- NOTE | 2019-07-15 13:25 | PDOC2 ---
GI CONSULT Reason For Consult: Constipation HPI: HPI: 88 y/o female who we have seen in the past. On this occasion, sent to ER from assisted living. History supplemented by son and [id number] who are visiting from [place] - she has some confusion. Seemed in normal state of health when they saw her yesterday morning and were surprised when she called from the hospital last night. In general, doesn't eat much - doesn't always like the food at assisted living - has lost a bit of weight recently. The patient reports abd pain w/ constipation for 4-5 days, then n/v last night after taking a liquid medication (says Pepto) she thought would help constipation. Mentions vomiting peas that she ate several days before. Imaging notes large colonic stool burden, distended stomach with large amount of fluid, and multifocal groundglass nodular opacities are seen in lung bases. Received Relistor in ER - significant stooling since. Noted w/ A Fib - back in sinus now. Currently denies pain and nausea. Previously reported normal EGD and colonoscopy several years ago - family thinks it was longer ago than that. ?performed here at [facility] - no records at our office. Remote h/o "ulcer" when she lived in [place]. S/p cholecystectomy. 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 No NSAIDs. Takes famotidine QHS and Miralax QD. H/o OIC - takes hydrocodone 7.5mg (2 pills Q 4 hours) for chronic back and leg pain. PMH: PMH: HTN, GERD, constipation, chronic pain (back. leg), RLS, OA, UTIs, left renal angiomyolipoma hysterectomy, cholecystectomy, cataract removal FH: Family History: No pertinent hx Social History: ALCOHOL: none Drugs: None ROS: GEN: Denies fevers, chills, sweats HEENT: Denies blurred vision, sore throat CV: Denies chest pain RESP: Denies shortness of air, cough GI: Per HPI : Denies hematuria, dysuria ENDO: +weight loss NEURO: Denies confusion, dizziness MSK: +chronic pain SKIN: Denies jaundice, pruritus Vitals: Vitals: Vital Signs Date Time Temp Pulse Resp B/P (MAP) Pulse Ox O2 Delivery O2 Flow Rate FiO2 07/15/19 11:20 94 Nasal Cannula 4.0 07/15/19 11:00 97.9 88 22 122/58 (79) 97.9 Labs: Labs: Laboratory Tests Test 07/14/19 20:11 07/14/19 20:27 07/15/19 02:52 07/15/19 05:50 Urine Collection Type U cath Urine Color Yellow Urine Clarity Cloudy Urine pH 8.5 Urine Specific [place] 1.015 Urine Protein 30 mg/dL (NEG-TRACE) Urine Glucose (UA) Negative mg/dL (NEG) Urine Ketones (Stick) Negative mg/dL (NEG) Urine Blood Negative (NEG) Urine Nitrite Negative (NEG) Urine Bilirubin Negative (NEG) Urine Urobilinogen Dipstick 1.0 mg/dL (0.2 mg/dL) Urine Leukocyte Esterase Negative (NEG) Urine RBC 0 /HPF (0-2) Urine WBC Occ /HPF (0-4) Urine Squamous Epithelial Cells None /LPF Urine Amorphous Sediment Present /HPF Urine Bacteria 0 /HPF (0-FEW) White Blood Count 9.3 x10^3/uL (4.0-11.0) 8.8 x10^3/uL (4.0-11.0) Red Blood Count 5.36 x10^6/uL (3.50-5.40) 4.97 x10^6/uL (3.50-5.40) Hemoglobin 14.3 g/dL (12.0-15.5) 13.4 g/dL (12.0-15.5) Hematocrit 42.7 % (36.0-47.0) 39.5 % (36.0-47.0) Mean Corpuscular Volume 80 fL (79-100) 80 fL (79-100) Mean Corpuscular Hemoglobin 27 pg (25-35) 27 pg (25-35) Mean Corpuscular Hemoglobin Concent 34 g/dL (31-37) 34 g/dL (31-37) Red Cell Distribution Width 15.6 % (11.5-14.5) 15.2 % (11.5-14.5) Platelet Count 198 x10^3/uL (140-400) 182 x10^3/uL (140-400) Neutrophils (%) (Auto) 84 % (31-73) 86 % (31-73) Lymphocytes (%) (Auto) 10 % (24-48) 6 % (24-48) Monocytes (%) (Auto) 6 % (0-9) 7 % (0-9) Eosinophils (%) (Auto) 0 % (0-3) 0 % (0-3) Basophils (%) (Auto) 1 % (0-3) 0 % (0-3) Neutrophils # (Auto) 7.8 x10^3/uL (1.8-7.7) 7.6 x10^3/uL (1.8-7.7) Lymphocytes # (Auto) 0.9 x10^3/uL (1.0-4.8) 0.5 x10^3/uL (1.0-4.8) Monocytes # (Auto) 0.5 x10^3/uL (0.0-1.1) 0.6 x10^3/uL (0.0-1.1) Eosinophils # (Auto) 0.0 x10^3/uL (0.0-0.7) 0.0 x10^3/uL (0.0-0.7) Basophils # (Auto) 0.1 x10^3/uL (0.0-0.2) 0.0 x10^3/uL (0.0-0.2) Sodium Level 141 mmol/L (136-145) 144 mmol/L (136-145) Potassium Level 3.9 mmol/L (3.5-5.1) 3.3 mmol/L (3.5-5.1) Chloride Level 98 mmol/L (98-107) 103 mmol/L (98-107) Carbon Dioxide Level 35 mmol/L (21-32) 31 mmol/L (21-32) Anion Gap 8 (6-14) 10 (6-14) Blood Urea Nitrogen 14 mg/dL (7-20) 20 mg/dL (7-20) Creatinine 0.9 mg/dL (0.6-1.0) 1.1 mg/dL (0.6-1.0) Estimated GFR (Cockcroft-Gault) 59.0 46.8 BUN/Creatinine Ratio 16 (6-20) 18 (6-20) Glucose Level 149 mg/dL (70-99) 140 mg/dL (70-99) Calcium Level 10.2 mg/dL (8.5-10.1) 9.2 mg/dL (8.5-10.1) Total Bilirubin 0.7 mg/dL (0.2-1.0) 1.3 mg/dL (0.2-1.0) Aspartate Amino Transf (AST/SGOT) 18 U/L (15-37) 22 U/L (15-37) Alanine Aminotransferase (ALT/SGPT) 15 U/L (14-59) 18 U/L (14-59) Alkaline Phosphatase 90 U/L (46-116) 73 U/L (46-116) Total Protein 7.5 g/dL (6.4-8.2) 6.4 g/dL (6.4-8.2) Albumin 4.6 g/dL (3.4-5.0) 3.7 g/dL (3.4-5.0) Albumin/Globulin Ratio 1.6 (1.0-1.7) 1.4 (1.0-1.7) Lipase 108 U/L (73-393) Troponin I Quantitative 0.026 ng/mL (0.000-0.055) 0.041 ng/mL (0.000-0.055) Segmented Neutrophils % 68 % (35-66) Band Neutrophils % 18 % (0-9) Lymphocytes % 6 % (24-48) Monocytes % 7 % (0-10) Basophils % 1 % (0-3) Platelet Estimate Adequate (ADEQUATE) Large Platelets Few Hypochromasia Anisocytosis Present Microcytosis Present Magnesium Level 1.8 mg/dL (1.8-2.4) Triglycerides Level 53 mg/dL (0-150) Cholesterol Level 128 mg/dL (0-200) LDL Cholesterol, Calculated 44 mg/dL (0-100) VLDL Cholesterol, Calculated 11 mg/dL (0-40) Non-HDL Cholesterol Calculated 55 mg/dL (0-129) HDL Cholesterol 73 mg/dL (40-60) Cholesterol/HDL Ratio 1.8 Thyroid Stimulating Hormone (TSH) 0.626 uIU/mL (0.358-3.74) Allergies: Coded Allergies: Sulfa (Sulfonamide Antibiotics) (Verified Allergy, Intermediate, 07/15/19) codeine (Verified Allergy, Intermediate, 07/15/19) metronidazole (Verified Allergy, Intermediate, 07/15/19) Medications: Current Medications Medications (Trade) Dose Ordered Sig/Glen Route PRN Reason Start Time Stop Time Status Last Admin Dose Admin Methylnaltrexone [place] (Relistor) 12 mg 1X ONCE SQ 07/14/19 19:45 07/14/19 19:46 DC 07/14/19 20:17 Ondansetron HCl (Zofran) 4 mg 1X ONCE IV 07/14/19 20:00 07/14/19 20:01 DC 07/14/19 20:00 Iohexol (Omnipaque 300 Mg/ml) 60 ml 1X ONCE IV 07/14/19 21:00 07/14/19 21:01 DC 07/14/19 21:07 Ondansetron HCl (Zofran) 4 mg PRN Q8HRS PRN IV NAUSEA/VOMITING 07/14/19 22:00 07/15/19 21:59 07/15/19 01:42 Fentanyl Citrate (Fentanyl 2ml Vial) 50 mcg PRN Q4HRS PRN IV PAIN 07/14/19 22:00 07/15/19 21:59 07/15/19 10:29 Sodium Chloride 1,000 ml @ 125 mls/hr Q8H IV 07/14/19 22:00 07/15/19 21:59 07/15/19 05:19 Diltiazem HCl (Cardizem Iv Push) 20 mg 1X ONCE IVP 07/14/19 22:45 07/14/19 22:46 DC 07/14/19 23:01 Sodium Chloride 1,000 ml @ 1,000 mls/hr 1X ONCE IV 07/14/19 22:45 07/14/19 23:44 DC 07/14/19 22:54 Diltiazem HCl 125 mg/Dextrose 125 ml @ 5 mls/hr CONT PRN IV SEE I/O RECORD 07/14/19 23:00 07/15/19 01:54 Acetaminophen/ Hydrocodone Bitart (Lortab 10/325) 1 tab 1X ONCE PO 07/15/19 03:15 07/15/19 03:16 DC 07/15/19 03:08 Lidocaine (Lidoderm) 1 patch 1X ONCE TD 07/15/19 03:15 07/15/19 03:16 DC 07/15/19 03:08 Acetaminophen/ Hydrocodone Bitart (Lortab 10/325) 1 tab PRN Q6HRS PRN PO MODERATE PAIN, SEVERE PAIN 07/15/19 11:15 07/15/19 11:20 Imaging: Imaging: KUB 07/14 IMPRESSION: Nonobstructive bowel gas pattern with a large stool burden at the rectum. CT A/P w/ IV contrast 07/14 FINDINGS: Heart is moderately enlarged in size. No pericardial or pleural effusion. Multifocal groundglass nodular opacities are seen in the visualized lung bases. Liver, spleen, pancreas, adrenals and right kidney within normal limits. Simple cyst in the left kidney. Status post cholecystectomy. No enlarged retroperitoneal or pelvic adenopathy. Moderate diffuse atherosclerotic plaque in the abdominal aorta. No free pelvic fluid or ascites. Large diffuse colonic stool burden. Stomach is markedly distended with large volume fluid. No bowel o bstruction. No pneumoperitoneum. Status post hysterectomy. Urinary bladder demonstrates no radiopaque stone. No suspicious bony lesion. IMPRESSION: 1. Large amount of diffuse colonic stool burden, patient may be constipated. Evidence of bowel obstruction. (?typo) 2. Distended stomach with large amount of fluid, nonspecific. Correlate for recent high-volume fluid ingestion. 3. Bilateral lung bases abnormality likely infectious or aspiration. PE: GEN: NAD HEENT: Atraumatic, PERRL LUNGS: NC, clear anteriorly HEART: RRR when I saw ABD: NABS, S/ND/NT EXTREMITY: No edema SKIN: No rashes, no jaundice NEURO/PSYCH: alert, confused/forgetful A/P: A/P: N/v, abd pain, constipation Abnormal CT - distended stomach, large amount of stool, nodular opacities in lung bases A Fib - currently SR GERD, remote h/o "ulcer" - had EGD in the past CRC screen - reports normal colonoscopy at some point in the past H/o OIC - currently on Miralax QD S/p cholecystectomy Chronic pain -- Reviewed w/ Dr. Garibay - EGD tonight. I returned to discuss - she is agreeable. Son and [id number] went to lunch - I discussed possibility of EGD with them earlier and they were agreeable as well. Add IV acid-dry transfer man. ?further chest imaging, cardiology to see Long-term, would benefit from something more than Miralax for constipation - consider Amitiza, Movantik, etc. ILIA CUADRA Jul 15, 2019 13:25
--- NOTE | 2019-07-15 13:41 | NUR ---
SS following for discharge planning. SS reviewed pt chart. Pt is from [facility], ; fax [phone], and is currently requiring oxygen. PT/OT recommended halfway unit. SS met with pt and discussed halfway unit and discharge planning. Pt agreeable and requested that referral be phoned and faxed to [facility], ; fax [phone], as she wants to remain close to the hospital. SS phoned and faxed referral. SS will await acceptance decision and will proceed accordingly with discharge planning.
[2019-07-15] MEDS ORDERED: IV RINGERS,LACTATED 1000ML 1,000 ML IV SCH (13:55)
[2019-07-15] MEDS: PANTOPRAZOLE IV PUSH 40 MG VIAL. IVP SCH (14:46)
[2019-07-15] MEDS ORDERED: PROPOFOL 20 ML IV ONE (16:32)
[2019-07-15] MEDS ORDERED: LIDOCAINE 2% PF 5 ML VIAL. ONE (16:32)
--- NOTE | 2019-07-15 16:50 | PDOC4 ---
Operative Note Operative Note EGD with biopsies Meds propofol per anesthesia Pre-op dx abnl Ct scan/n/v Post-op dx reflux esophagitis s/p bx gastric polyps fundus Plan advance diet medical therpay for GERD pending biopsies KRYSTIN AGUILRA MD Jul 15, 2019 16:50
[2019-07-15] MEDS: HYDROcodone/APAP 10/325 1 TAB TABLET PO PRN (17:34)
[2019-07-15] MEDS: clonazePAM 0.5 MG TABLET PO SCH (20:29)
[2019-07-15] MEDS: GABAPENTIN 300 MG CAPSULE. PO SCH (20:30)
[2019-07-15] MEDS: CARBIDOPA/LEVODOPA 25/100MG TABLET PO SCH (20:30)
[2019-07-15] MEDS: SIMVASTATIN 40 MG TABLET. PO SCH (20:30)
[2019-07-15] MEDS: PATCH REMOVAL. MC SCH (20:31)
[2019-07-16] VITALS (7 sets, daily range): BP systolic 97–147; BP diastolic 49–67
[2019-07-16] MEDS: HYDROcodone/APAP 10/325 1 TAB TABLET PO PRN ×6 (01:27→23:06)
[2019-07-16] MEDS: POLYETHYLENE GLYCOL 3350 17 GM PACKET. PO SCH (08:54)
[2019-07-16] MEDS: LIDOCAINE (700MG/PATCH) PATCH. TD SCH (08:54)
[2019-07-16] MEDS: GABAPENTIN 300 MG CAPSULE. PO SCH ×3 (08:54→20:45)
[2019-07-16] MEDS: PANTOPRAZOLE IV PUSH 40 MG VIAL. IVP SCH (08:54)
[2019-07-16] MEDS: CARBIDOPA/LEVODOPA 25/100MG TABLET PO SCH ×2 (08:54→20:45)
--- NOTE | 2019-07-16 10:52 | CARD ---
MR#: [id number] Date of Study: 07/16/2019 Ordering Physician: DELIA STRINGER, Referring Physician: DELIA STRINGER, Tech: Sienna Kellogg RDCS APPROVED REPORT EXAM: Two-dimensional and M-mode echocardiogram with Doppler and color Doppler. Other Information Quality : AverageHR: 90bpm Rhythm : Atrial Fibrillation INDICATION Atrial Fibrillation 2D DIMENSIONS RVDd3.0 (2.9-3.5cm)Left Atrium(2D)3.7 (1.6-4.0cm) IVSd1.3 (0.7-1.1cm)Aortic Root(2D)3.3 (2.0-3.7cm) LVDd4.5 (3.9-5.9cm)LVOT Diameter2.0 (1.8-2.4cm) PWd1.2 (0.7-1.1cm)LVDs3.5 (2.5-4.0cm) FS (%) 23.5 %SV44.2 ml LVEF(%)47.2 (>50%) M-Mode DIMENSIONS Left Atrium(MM)3.26 (2.5-4.0cm)Aortic Root3.37 (2.2-3.7cm) Aortic Valve AoV Peak Henrik.123.0cm/sAoV VTI22.7cm AO Peak GR.6.1mmHgLVOT VTI 19.44cm AO Mean GR.3mmHgAVA (VTI)2.70cm2 Mitral Valve MV E Onvhjyui207.9cm/sMV E Peak Gr.10mmHg MV DECEL [id number] A Xzexiuwb610.7cm/s MV E Mean Gr.4mmHgE/A Ratio0.9 MV A Oiaejjuk630lw TDI Lateral E' P. V8.17cm/sE/Lateral E'12.6 Tricuspid Valve TR P. Iahacjcs469lb/sRAP QPJZIHES4znZr TR Peak Gr.75xlFzZIIS52wdPz Pulmonary Vein S1 Mzjzkyyv89.3cm/sS2 Ftkwkjnm63.40cm/s D2 Wpadoxqh88.4cm/s LEFT VENTRICLE The left ventricle is normal size. There is mild concentric left ventricular hypertrophy. The left ve ntricular systolic function is mildly impaired. The Ejection Fraction is 45%. Transmitral Doppler mariela w pattern is Grade I-abnormal relaxation pattern. RIGHT VENTRICLE The right ventricle is normal size. There is normal right ventricular wall thickness. The right ventr icular systolic function is normal. ATRIA The left atrium size is normal. The right atrium size is normal. The interatrial septum is intact wit h no evidence for an atrial septal defect or patent foramen ovale as noted on 2-D or Doppler imaging. AORTIC VALVE The aortic valve is normal in structure and function. The aortic valve is trileaflet. Doppler and Col or Flow revealed trace aortic regurgitation. There is no significant aortic valvular stenosis. There is no aortic valvular vegetation. MITRAL VALVE The mitral valve is thickened but opens well. There is no evidence of mitral valve prolapse. There is no mitral valve stenosis. Doppler and Color-flow revealed trace mitral regurgitation. TRICUSPID VALVE The tricuspid valve is normal in structure and function. Doppler and Color Flow revealed trace tricus pid regurgitation. The PA pressure was estimated at 31 mmHg. There is no tricuspid valve prolapse or vegetation. There is no tricuspid valve stenosis. PULMONIC VALVE The pulmonic valve is not well visualized. GREAT VESSELS The aortic root is normal in size. The ascending aorta is Mildly dilated. The IVC is normal in size a nd collapses >50% with inspiration. PERICARDIAL EFFUSION There is no evidence of significant pericardial effusion. Critical Notification Critical Value: No <Conclusion> The left ventricular systolic function is mildly impaired. The Ejection Fraction is 45%. Trace mitral regurgitation. Trace tricuspid regurgitation. The PA pressure was estimated at 31 mmHg. There is no evidence of significant pericardial effusion. Signed by : Zion Reyes, Electronically Approved : 07/16/2019 10:52:40
--- NOTE | 2019-07-16 12:36 | PDOC ---
Subjective: Subjective: Feels better. Tolerating PO, no abd pain. Asks about constipation treatment. Objective: Objective: No GI concerns per nurse - possible DC to PP tomorrow - stooling and eating. Vital Signs: Vital Signs Date Time Temp Pulse Resp B/P (MAP) Pulse Ox O2 Delivery O2 Flow Rate FiO2 07/16/19 11:13 97 Nasal Cannula 4.0 07/16/19 10:19 98.2 96 16 147/67 (93) 98.2 Imaging: EGD 07/15 reflux esophagitis s/p bx gastric polyps fundus Echocardiogram <Conclusion> The left ventricular systolic function is mildly impaired. The Ejection Fraction is 45%. Trace mitral regurgitation. Trace tricuspid regurgitation. The PA pressure was estimated at 31 mmHg. There is no evidence of significant pericardial effusion. PE: GEN: NAD - up in lamine LUNGS: CTAB HEART: RRR ABD: S/ND/NT NEURO/PSYCH: A & O 3 - better today A/P: N/v, abd pain, constipation - resolved Chronic pain on hydrocodone GERD, gastric polyps -- Change to PO PPI. She wants another option for long-term treatment of OIC - will start Amitiza - can adjust dosage along w/ Miralax as needed. Follow-up on biopsy results. DC per amber/ ILIA CUADRA Jul 16, 2019 12:36
[2019-07-16] MEDS ORDERED: POLYETHYLENE GLYCOL 3350 17 GM PACKET. PO PRN (12:45)
--- NOTE | 2019-07-16 13:02 | PDOC ---
[facility] PROGRESS NOTE Chief Complaint Chief Complaint Abdominal pain Nausea Constipation History of Present Illness History of Present Illness 07/16/19 Pt seen and examined Pt was sitting upright in chair Pt was pleasant Pt reported being able to sleep through the night D/w RN Charts and labs reviewed Imaging: EGD 07/15 reflux esophagitis s/p bx gastric polyps fundus Echocardiogram <Conclusion> The left ventricular systolic function is mildly impaired. The Ejection Fraction is 45%. Trace mitral regurgitation. Trace tricuspid regurgitation. The PA pressure was estimated at 31 mmHg. There is no evidence of significant pericardial effusion. Vitals/I&O Vitals/I&O: Vital Signs Date Time Temp Pulse Resp B/P (MAP) Pulse Ox O2 Delivery O2 Flow Rate FiO2 07/16/19 11:13 97 Nasal Cannula 4.0 07/16/19 10: 98.2 96 16 147/67 (93) 98.2 I & O 0 07/15/19 07/15/19 07/16/19 15:00 23:00 07:00 Intake Total 1000 ml 230 ml Output Total 200 ml 150 ml Balance 800 ml 80 ml Physical Exam General: Alert, Oriented X3, Cooperative, No acute distress Heart: Regular rate (SR), Normal S1, Normal S2, Other (3/6 systolic murmur to LLS border) Lungs: Clear Abdomen: Soft, Other (basilar cracles) Extremities: No cyanosis, No edema Skin: No breakdown, No significant lesion Review of Systems Review of Systems: Pt denies RICHTER Pt denies fever Assessment and Plan Assessmemt and Plan Problems Medical Problems: (1) Atrial fibrillation with tachycardic ventricular rate Status: Acute Assessment A-fib w/ RVR Reflux esophagitis Gastric polyps Chronic pain Peripheral neuropathy Plan Cardiac monitoring PPI Pain management Meds per cardiology Home meds PT/OT Eventual discharge to rehab Comment Review of Relevant I have reviewed the following items delfino (where applicable) has been applied. Medications: Current Medications Medications (Trade) Dose Ordered Sig/Glen Route PRN Reason Start Time Stop Time Status Last Admin Dose Admin Lidocaine (Lidoderm) 1 patch DAILY TD 07/16/19 09:00 07/16/19 08:54 Miscellaneous (Lidoderm Patch Removal) 1 ea QHS MC 07/15/19 21:00 07/15/19 20:31 Pantoprazole Sodium (PROTONIX VIAL for IV PUSH) 40 mg DAILYAC IVP 07/15/19 14:00 07/16/19 12:37 DC 07/16/19 08:54 Acetaminophen/ Hydrocodone Bitart (Lortab 10/325) 1 tab PRN Q4HRS PRN PO MODERATE PAIN, SEVERE PAIN 07/15/19 15:20 07/16/19 10:09 Carbidopa/Levodopa (Sinemet 25/100) 1 tab BID PO 07/15/19 21:00 07/16/19 08:54 Clonazepam (KlonoPIN) 0.5 mg HS PO 07/15/19 21:00 07/15/19 20:29 Gabapentin (Neurontin) 300 mg BIDWBKFT/STIVEN PO 07/16/19 08:00 07/16/19 08:54 Simvastatin (Zocor) 40 mg QHS PO 07/15/19 21:00 07/15/19 20:30 Gabapentin (Neurontin) 600 mg QHS PO 07/15/19 21:00 07/15/19 20:30 Polyethylene Glycol (miraLAX PACKET) 17 gm DAILY PO 07/16/19 09:00 07/16/19 08:54 MEGHNA BAUGH III DO Jul 16, 2019 13:01
--- NOTE | 2019-07-16 14:03 | PDOC ---
JOSE MARTIN WORLEY APRN 07/16/19 1403: CARDIO Progress Notes Date and Time Date of Service 07/16/19 Time of Evaluation 1310 Subjective Subjective: No Chest Pain, No shortness of breath Vitals Vitals Vital Signs Date Time Temp Pulse Resp B/P (MAP) Pulse Ox O2 Delivery O2 Flow Rate FiO2 07/16/19 11:13 97 Nasal Cannula 4.0 07/16/19 10:19 98.2 96 16 147/67 (93) 98.2 Weight Weight [ ] Input and Output Intake and Output Intake and Output 07/16/19 06:59 Intake Total 1230 ml Output Total 350 ml Balance 880 ml Intake Oral 230 ml IV Total 1000 ml Output Urine Total 350 ml # Voids 2 Physical Exam HEENT: Neck Supple W Full Motion Chest: Symmetric LUNGS: Clear to Auscultation Heart: S1S2 Abdomen: Soft N/T Extremities: No Edema Neurology: alert, oriented, follow commands Assessment Assessment 1. PAFIB with the setting of GI issues. Converted to SR and has been maintaining. Off Cardizem gtt due to hypotension 2. Cardiomyopathy; Echo showed LVEF 45%. Clinically compensation. No CP, URBAN 3. HTN: controlled 4. HLP; statin 5. Gastritis; PPI 6. Constipation; Amitiza initiated Recommendations Resume BB for rate control given CMP Resume ARB at low dose if BP consistently adequate Add ASA, continue statin therapy Outpatient event monitor to note AFIB burden/guide therapy Consider outpatient ischemic evaluation, possibly as an outpatient FREDDY MOORE MD 07/17/19 2135: JOSE MARTIN WORLEY APRN Jul 16, 2019 14:03 FREDDY MOORE MD Jul 17, 2019 21:35
[2019-07-16] MEDS: METOPROLOL SUCC 24HR ER 50 MG TAB.ER.24H. PO SCH (14:23)
[2019-07-16] MEDS: LUBIPROSTONE 8 MCG CAPSULE PO SCH (18:22)
[2019-07-16] MEDS: PATCH REMOVAL. MC SCH (20:44)
[2019-07-16] MEDS: clonazePAM 0.5 MG TABLET PO SCH (20:45)
[2019-07-16] MEDS: SIMVASTATIN 40 MG TABLET. PO SCH (20:45)
[2019-07-17 03:00] VITALS: BP 124/64
[2019-07-17 06:08] LABS: BASO % 0 % (0-3); EOS # 0.2 x10^3/uL (0.0-0.7); EOS % 1 % (0-3); HEMATOCRIT 33.8 % (36.0-47.0); HEMOGLOBIN 11.1 g/dL (12.0-15.5); LYMPH # 1.4 x10^3/uL (1.0-4.8); LYMPH % 11 % (24-48); MEAN CORPUSCULAR HEMOGLOBIN 27 pg (25-35); MEAN CORPUSCULAR HGB CONC 33 g/dL (31-37); MEAN CORPUSCULAR VOLUME 81 fL (79-100); MONO # 0.8 x10^3/uL (0.0-1.1); MONO % 6 % (0-9); NEUT # 10.3 x10^3/uL (1.8-7.7); NEUT % 82 % (31-73); PLATELET COUNT 155 x10^3/uL (140-400); RED BLOOD COUNT 4.18 x10^6/uL (3.50-5.40); RED CELL DISTRIBUTION WIDTH 15.7 % (11.5-14.5); WHITE BLOOD COUNT 12.7 x10^3/uL (4.0-11.0)
[2019-07-17 06:24] LABS: ALBUMIN 2.8 g/dL (3.4-5.0); ALBUMIN/GLOBULIN RATIO 0.9 (1.0-1.7); CALCIUM 8.9 mg/dL (8.5-10.1); CREATININE 0.8 mg/dL (0.6-1.0); GFR 67.5; POTASSIUM 4.3 mmol/L (3.5-5.1)
[2019-07-17 07:00] VITALS: BP 146/69
[2019-07-17] MEDS ORDERED: PANTOPRAZOLE 40 MG TABLET.DR. PO SCH (07:30)
[2019-07-17] MEDS ORDERED: ASPIRIN ENTERIC COATED 81 MG TABLET.DR. PO SCH (08:00)
[2019-07-17] MEDS: POLYETHYLENE GLYCOL 3350 17 GM PACKET. PO SCH (08:36)
[2019-07-17] MEDS: CARBIDOPA/LEVODOPA 25/100MG TABLET PO SCH (08:37)
[2019-07-17] MEDS: LUBIPROSTONE 8 MCG CAPSULE PO SCH (08:37)
[2019-07-17] MEDS: GABAPENTIN 300 MG CAPSULE. PO SCH ×2 (08:37→13:24)
[2019-07-17] MEDS: LIDOCAINE (700MG/PATCH) PATCH. TD SCH (08:39)
[2019-07-17] MEDS: METOPROLOL SUCC 24HR ER 50 MG TAB.ER.24H. PO SCH (08:46)
[2019-07-17] MEDS: HYDROcodone/APAP 10/325 1 TAB TABLET PO PRN ×2 (08:47→13:24)
[2019-07-17] MEDS ORDERED: LOSARTAN POTASSIUM 25 MG TABLET. PO SCH (09:00)
--- NOTE | 2019-07-17 09:46 | PDOC ---
[facility] PROGRESS NOTE Chief Complaint Chief Complaint Abdominal pain Nausea Constipation History of Present Illness History of Present Illness 07/17/19 Pt seen and examined Pt was laying down resting, pt opened her eyes when we walked in but fell back asleep NAD Hearts and lungs clear Labs and charts reviewed DW RN 07/16/19 Pt seen and examined Pt was sitting upright in chair Pt was pleasant Pt reported being able to sleep through the night D/w RN Charts and labs reviewed Imaging: EGD 07/15 reflux esophagitis s/p bx gastric polyps fundus Echocardiogram <Conclusion> The left ventricular systolic function is mildly impaired. The Ejection Fraction is 45%. Trace mitral regurgitation. Trace tricuspid regurgitation. The PA pressure was estimated at 31 mmHg. There is no evidence of significant pericardial effusion. Vitals/I&O Vitals/I&O: Vital Signs Date Time Temp Pulse Resp B/P (MAP) Pulse Ox O2 Delivery O2 Flow Rate FiO2 07/17/19 08:47 95 Nasal Cannula 4.0 07/17/19 08:46 92 146/69 07/17/19 07:00 97.7 16 97.7 I & O 07/16/19 07/16/19 07/17/19 14:59 22:59 06:59 Intake Total 120 ml 800 ml 0 ml Output Total 250 ml 175 ml 1 ml Balance -130 ml 625 ml -1 ml Physical Exam General: Alert, Oriented X3, Cooperative, No acute distress Heart: Regular rate (SR), Normal S1, Normal S2, Other (3/6 systolic murmur to LLS border) Lungs: Clear Abdomen: Soft, Other (basilar cracles) Extremities: No cyanosis, No edema Skin: No breakdown, No significant lesion Labs Labs: Laboratory Tests Test 07/17/19 05:00 White Blood Count 12.7 x10^3/uL (4.0-11.0) Red Blood Count 4.18 x10^6/uL (3.50-5.40) Hemoglobin 11.1 g/dL (12.0-15.5) Hematocrit 33.8 % (36.0-47.0) Mean Corpuscular Volume 81 fL (79-100) Mean Corpuscular Hemoglobin 27 pg (25-35) Mean Corpuscular Hemoglobin Concent 33 g/dL (31-37) Red Cell Distribution Width 15.7 % (11.5-14.5) Platelet Count 155 x10^3/uL (140-400) Neutrophils (%) (Auto) 82 % (31-73) Lymphocytes (%) (Auto) 11 % (24-48) Monocytes (%) (Auto) 6 % (0-9) Eosinophils (%) (Auto) 1 % (0-3) Basophils (%) (Auto) 0 % (0-3) Neutrophils # (Auto) 10.3 x10^3/uL (1.8-7.7) Lymphocytes # (Auto) 1.4 x10^3/uL (1.0-4.8) Monocytes # (Auto) 0.8 x10^3/uL (0.0-1.1) Eosinophils # (Auto) 0.2 x10^3/uL (0.0-0.7) Basophils # (Auto) 0.0 x10^3/uL (0.0-0.2) Sodium Level 142 mmol/L (136-145) Potassium Level 4.3 mmol/L (3.5-5.1) Chloride Level 105 mmol/L (98-107) Carbon Dioxide Level 30 mmol/L (21-32) Anion Gap 7 (6-14) Blood Urea Nitrogen 17 mg/dL (7-20) Creatinine 0.8 mg/dL (0.6-1.0) Estimated GFR (Cockcroft-Gault) 67.5 BUN/Creatinine Ratio 21 (6-20) Glucose Level 84 mg/dL (70-99) Calcium Level 8.9 mg/dL (8.5-10.1) Total Bilirubin 1.0 mg/dL (0.2-1.0) Aspartate Amino Transf (AST/SGOT) 19 U/L (15-37) Alanine Aminotransferase (ALT/SGPT) 6 U/L (14-59) Alkaline Phosphatase 91 U/L (46-116) Total Protein 6.0 g/dL (6.4-8.2) Albumin 2.8 g/dL (3.4-5.0) Albumin/Globulin Ratio 0.9 (1.0-1.7) Review of Systems Review of Systems: Unable to obtain due to sleep Assessment and Plan Assessmemt and Plan Problems Medical Problems: (1) Atrial fibrillation with tachycardic ventricular rate Status: Acute Assessment A-fib w/ RVR Reflux esophagitis Gastric polyps Chronic pain Peripheral neuropathy Plan Cardiac monitoring Pain management Assessment A-fib w/ RVR Reflux esophagitis Gastric polyps Chronic pain Peripheral neuropathy Plan Cardiac monitoring Eventual discharge to rehab Meds per cardiology Home meds PT/OT Hopeful discharge to rehab for 1 week Comment Review of Relevant I have reviewed the following items delfino (where applicable) has been applied. Medications: Current Medications Medications (Trade) Dose Ordered Sig/Glen Route PRN Reason Start Time Stop Time Status Last Admin Dose Admin Pantoprazole Sodium (Protonix) 40 mg DAILYAC PO 07/17/19 07:30 07/17/19 08:36 Lubiprostone (Amitiza) 8 mcg BIDWMEALS PO 07/16/19 17:00 07/17/19 08:37 Metoprolol Succinate (Toprol Xl) 50 mg DAILY PO 07/16/19 14:15 07/17/19 08:46 Aspirin (Ecotrin) 81 mg DAILYWBKFT PO 07/17/19 08:00 07/17/19 08:36 MEGHNA BAUGH III DO Jul 17, 2019 09:46
--- NOTE | 2019-07-17 10:53 | PDOC ---
[facility] PROGRESS NOTE Reason for Follow-up n/v, constipation Subjective Feeling better with BMs with amitiza Physical Exam Lungs decreased BS CV S1 S2 ABD +BS, soft, nontender Review of Relevant I have reviewed the following items delfino (where applicable) has been applied. Labs Laboratory Tests Test 07/17/19 05:00 White Blood Count 12.7 x10^3/uL (4.0-11.0) Red Blood Count 4.18 x10^6/uL (3.50-5.40) Hemoglobin 11.1 g/dL (12.0-15.5) Hematocrit 33.8 % (36.0-47.0) Mean Corpuscular Volume 81 fL (79-100) Mean Corpuscular Hemoglobin 27 pg (25-35) Mean Corpuscular Hemoglobin Concent 33 g/dL (31-37) Red Cell Distribution Width 15.7 % (11.5-14.5) Platelet Count 155 x10^3/uL (140-400) Neutrophils (%) (Auto) 82 % (31-73) Lymphocytes (%) (Auto) 11 % (24-48) Monocytes (%) (Auto) 6 % (0-9) Eosinophils (%) (Auto) 1 % (0-3) Basophils (%) (Auto) 0 % (0-3) Neutrophils # (Auto) 10.3 x10^3/uL (1.8-7.7) Lymphocytes # (Auto) 1.4 x10^3/uL (1.0-4.8) Monocytes # (Auto) 0.8 x10^3/uL (0.0-1.1) Eosinophils # (Auto) 0.2 x10^3/uL (0.0-0.7) Basophils # (Auto) 0.0 x10^3/uL (0.0-0.2) Sodium Level 142 mmol/L (136-145) Potassium Level 4.3 mmol/L (3.5-5.1) Chloride Level 105 mmol/L (98-107) Carbon Dioxide Level 30 mmol/L (21-32) Anion Gap 7 (6-14) Blood Urea Nitrogen 17 mg/dL (7-20) Creatinine 0.8 mg/dL (0.6-1.0) Estimated GFR (Cockcroft-Gault) 67.5 BUN/Creatinine Ratio 21 (6-20) Glucose Level 84 mg/dL (70-99) Calcium Level 8.9 mg/dL (8.5-10.1) Total Bilirubin 1.0 mg/dL (0.2-1.0) Aspartate Amino Transf (AST/SGOT) 19 U/L (15-37) Alanine Aminotransferase (ALT/SGPT) 6 U/L (14-59) Alkaline Phosphatase 91 U/L (46-116) Total Protein 6.0 g/dL (6.4-8.2) Albumin 2.8 g/dL (3.4-5.0) Albumin/Globulin Ratio 0.9 (1.0-1.7) Laboratory Tests Test 07/17/19 05:00 White Blood Count 12.7 x10^3/uL (4.0-11.0) Red Blood Count 4.18 x10^6/uL (3.50-5.40) Hemoglobin 11.1 g/dL (12.0-15.5) Hematocrit 33.8 % (36.0-47.0) Mean Corpuscular Volume 81 fL (79-100) Mean Corpuscular Hemoglobin 27 pg (25-35) Mean Corpuscular Hemoglobin Concent 33 g/dL (31-37) Red Cell Distribution Width 15.7 % (11.5-14.5) Platelet Count 155 x10^3/uL (140-400) Neutrophils (%) (Auto) 82 % (31-73) Lymphocytes (%) (Auto) 11 % (24-48) Monocytes (%) (Auto) 6 % (0-9) Eosinophils (%) (Auto) 1 % (0-3) Basophils (%) (Auto) 0 % (0-3) Neutrophils # (Auto) 10.3 x10^3/uL (1.8-7.7) Lymphocytes # (Auto) 1.4 x10^3/uL (1.0-4.8) Monocytes # (Auto) 0.8 x10^3/uL (0.0-1.1) Eosinophils # (Auto) 0.2 x10^3/uL (0.0-0.7) Basophils # (Auto) 0.0 x10^3/uL (0.0-0.2) Sodium Level 142 mmol/L (136-145) Potassium Level 4.3 mmol/L (3.5-5.1) Chloride Level 105 mmol/L (98-107) Carbon Dioxide Level 30 mmol/L (21-32) Anion Gap 7 (6-14) Blood Urea Nitrogen 17 mg/dL (7-20) Creatinine 0.8 mg/dL (0.6-1.0) Estimated GFR (Cockcroft-Gault) 67.5 BUN/Creatinine Ratio 21 (6-20) Glucose Level 84 mg/dL (70-99) Calcium Level 8.9 mg/dL (8.5-10.1) Total Bilirubin 1.0 mg/dL (0.2-1.0) Aspartate Amino Transf (AST/SGOT) 19 U/L (15-37) Alanine Aminotransferase (ALT/SGPT) 6 U/L (14-59) Alkaline Phosphatase 91 U/L (46-116) Total Protein 6.0 g/dL (6.4-8.2) Albumin 2.8 g/dL (3.4-5.0) Albumin/Globulin Ratio 0.9 (1.0-1.7) Medications Current Medications Methylnaltrexone [place] (Relistor) 12 mg 1X ONCE SQ Last administered on 07/14/19at 20:17; Start 07/14/19 at 19:45; Stop 07/14/19 at 19:46; Status DC Ondansetron HCl (Zofran) 4 mg 1X ONCE IV Last administered on 07/14/19at 20:00; Start 07/14/19 at 20:00; Stop 07/14/19 at 20:01; Status DC Ondansetron HCl (Zofran) 4 mg STK-MED ONCE .ROUTE ; Start 07/14/19 at 19:44; Stop 07/14/19 at 19:44; Status DC Iohexol (Omnipaque 300 Mg/ml) 60 ml 1X ONCE IV Last administered on 07/14/19at 21:07; Start 07/14/19 at 21:00; Stop 07/14/19 at 21:01; Status DC Info (CONTRAST GIVEN -- Rx MONITORING) 1 each PRN DAILY PRN MC SEE COMMENTS; Start 07/14/19 at 21:00; Stop 07/16/19 at 20:59; Status DC Ondansetron HCl (Zofran) 4 mg PRN Q8HRS PRN IV NAUSEA/VOMITING Last administered on 07/15/19 01:42; Start 07/14/19 at 22:00; Stop 07/15/19 at 21:59; Status DC Fentanyl Citrate (Fentanyl 2ml Vial) 50 mcg PRN Q4HRS PRN IV PAIN Last administered on 07/15/19 20:30; Start 07/14/19 at 22:00; Stop 07/15/19 at 21:59; Status DC Sodium Chloride 1,000 ml @ 125 mls/hr Q8H IV Last administered on 07/15/19 14:47; Start 07/14/19 at 22:00; Stop 07/15/19 at 21:59; Status DC Acetaminophen (Tylenol) 650 mg PRN Q4HRS PRN PO FEVER; Start 07/14/19 at 22:00; Stop 07/15/19 at 21:59; Status DC Diltiazem HCl (Cardizem Iv Push) 20 mg 1X ONCE IVP Last administered on 07/14/19 23:01; Start 07/14/19 at 22:45; Stop 07/14/19 at 22:46; Status DC Sodium Chloride 1,000 ml @ 1,000 mls/hr 1X ONCE IV Last administered on 07/14/19 22:54; Start 07/14/19 at 22:45; Stop 07/14/19 at 23:44; Status DC Diltiazem HCl 125 mg/Dextrose 125 ml @ 5 mls/hr CONT PRN IV SEE I/O RECORD Last administered on 07/15/19 01:54; Start 07/14/19 at 23:00 Acetaminophen/ Hydrocodone Bitart (Lortab 10/325) 1 tab 1X ONCE PO Last administered on 07/15/19 03:08; Start 07/15/19 at 03:15; Stop 07/15/19 at 03:16; Status DC Lidocaine (Lidoderm) 1 patch DAILY TD Last administered on 07/17/19 08:39; Start 07/16/19 at 09:00 Miscellaneous (Lidoderm Patch Removal) 1 ea QHS MC Last administered on 07/16/19 20:44; Start 07/15/19 at 21:00 Lidocaine (Lidoderm) 1 patch 1X ONCE TD Last administered on 07/15/19 03:08; Start 07/15/19 at 03:15; Stop 07/15/19 at 03:16; Status DC Acetaminophen/ Hydrocodone Bitart (Lortab 10/325) 1 tab PRN Q6HRS PRN PO MODERATE PAIN, SEVERE PAIN Last administered on 07/15/19 11:20; Start 07/15/19 at 11:15; Stop 07/15/19 at 14:37; Status DC Pantoprazole Sodium (PROTONIX VIAL for IV PUSH) 40 mg DAILYAC IVP Last administered on 07/16/19 08:54; Start 07/15/19 at 14:00; Stop 07/16/19 at 12:37; Status DC Ringer's Solution 1,000 ml @ 50 mls/hr Q20H IV ; Start 07/15/19 at 13:55; Stop 07/16/19 at 01:54; Status DC Acetaminophen/ Hydrocodone Bitart (Lortab 10/325) 1 tab PRN Q4HRS PRN PO MODERATE PAIN, SEVERE PAIN Last administered on 07/17/19 08:47; Start 07/15/19 at 15:20 Propofol 20 ml @ As Directed STK-MED ONCE IV ; Start 07/15/19 at 16:32; Stop 07/15/19 at 16:33; Status DC Lidocaine HCl (Lidocaine Pf 2% Vial) 5 ml STK-MED ONCE .ROUTE ; Start 07/15/19 at 16:32; Stop 07/15/19 at 16:33; Status DC Carbidopa/Levodopa (Sinemet 25/100) 1 tab BID PO Last administered on 07/17/19 08:37; Start 07/15/19 at 21:00 Clonazepam (KlonoPIN) 0.5 mg HS PO Last administered on 07/16/19 20:45; Start 07/15/19 at 21:00 Gabapentin (Neurontin) 300 mg BIDWBKFT/STIVEN PO Last administered on 07/17/19 08:37; Start 07/16/19 at 08:00 Simvastatin (Zocor) 40 mg QHS PO Last administered on 07/16/19 20:45; Start 07/15/19 at 21:00 Gabapentin (Neurontin) 600 mg QHS PO Last administered on 07/16/19 20:45; Start 07/15/19 at 21:00 Polyethylene Glycol (miraLAX PACKET) 17 gm DAILY PO Last administered on 07/17/19at 08:36; Start 07/16/19 at 09:00 Pantoprazole Sodium (Protonix) 40 mg DAILYAC PO Last administered on 07/17/19at 08:36; Start 07/17/19 at 07:30 Polyethylene Glycol (miraLAX PACKET) 17 gm PRN DAILY PRN PO CONSTIPATION; Start 07/16/19 at 12:45 Lubiprostone (Amitiza) 8 mcg BIDWMEALS PO Last administered on 07/17/19at 08:37; Start 07/16/19 at 17:00 Diltiazem HCl (Cardizem 24hr Cd) 120 mg DAILY PO ; Start 07/16/19 at 15:00; Stop 07/16/19 at 15:52; Status DC Metoprolol Succinate (Toprol Xl) 50 mg DAILY PO Last administered on 07/17/19at 08:46; Start 07/16/19 at 14:15 Losartan Potassium (Cozaar) 25 mg DAILY PO ; Start 07/17/19 at 09:00 Aspirin (Ecotrin) 81 mg DAILYWBKFT PO Last administered on 07/17/19at 08:36; Start 07/17/19 at 08:00 Active Scripts Active Reported Klonopin (Clonazepam) 0.5 Mg Tablet 0.5 Mg PO HS Hydrocodone-Apap 7.5-325 (Hydrocodone Bit/Acetaminophen) 1 Tab Tablet 1 Tab PO PRN Q4HRS PRN Simvastatin 40 Mg Tablet 1 Tab PO QHS Ranitidine Hcl 150 Mg Tablet 2 Tab PO HS Polyethylene Glycol 3350 2,500 Gm Powder 17 Gm PO DAILY Metoprolol Tartrate 25 Mg Tablet 1 Tab PO BID Losartan Potassium 50 Mg Tablet 50 Mg PO DAILY Gabapentin 600 Mg Tablet 600 Mg PO HS Gabapentin (Gabapentin) 300 Mg Capsule 300 Mg PO BIDWBKFT/STIVEN Sinemet 25-100 Mg Tablet (Carbidopa/Levodopa) 1 Each Tablet 1 Tab PO BID Vitals/I & O Vital Sign - Last 24 Hours 07/16/19 07/16/19 07/16/19 07/16/19 11:13 14:21 14:23 14:24 Temp 97.8 97.8 Pulse 96 87 Resp 16 B/P (MAP) 147/67 140/66 (90) Pulse Ox 97 97 97 O2 Delivery Nasal Cannula Nasal Cannula Nasal Cannula O2 Flow Rate 4.0 4.0 4.0 07/16/19 07/16/19 07/16/19 07/16/19 15:55 18:22 19:00 19:36 Temp 98.7 98.7 Pulse 85 Resp 12 B/P (MAP) 130/60 (83) Pulse Ox 97 97 98 97 O2 Delivery Nasal Cannula Nasal Cannula Nasal Cannula Nasal Cannula O2 Flow Rate 4.0 4.0 4.0 4.0 07/16/19 07/16/19 07/16/19 07/17/19 19:50 23:00 23:06 00:06 Temp 98.5 98.5 Pulse 74 Resp 12 B/P (MAP) 119/55 (76) Pulse Ox 98 O2 Delivery Nasal Cannula Nasal Cannula Nasal Cannula Nasal Cannula O2 Flow Rate 2.0 4.0 2.0 2.0 07/17/19 07/17/19 07/17/19 07/17/19 03:00 07:00 08:46 08:47 Temp 98.4 97.7 98.4 97.7 Pulse 72 83 92 Resp 16 16 B/P (MAP) 124/64 (84) 146/69 (94) 146/69 Pulse Ox 99 95 95 O2 Delivery Nasal Cannula Nasal Cannula Nasal Cannula O2 Flow Rate 4.0 4.0 4.0 Intake and Output 07/16/19 07/16/19 07/17/19 14:59 22:59 06:59 Intake Total 120 ml 800 ml 0 ml Output Total 250 ml 175 ml 1 ml Balance -130 ml 625 ml -1 ml Problem List Problems Medical Problems: (1) Atrial fibrillation with tachycardic ventricular rate Status: Acute Assessment N/v- resolved, most likely multifactorial in etiology, advance diet as tolerated Constipation- OIC related, amitiza 8 mcg bid well tolerated, continue as o/p KRYSTIN AGUILAR MD Jul 17, 2019 10:52
[2019-07-17 11:00] VITALS: BP 107/57
--- NOTE | 2019-07-17 11:20 | SNU/HH DC ---
DISCHARGE ORDERS DISCHARGE INFORMATION: FINAL DIAGNOSIS Problems Medical Problems: (1) Atrial fibrillation with tachycardic ventricular rate Status: Acute CONDITION ON DISCHARGE: Stable CODE STATUS: Code Status: Full JAIL: SNF STAY <30 DAYS: Yes HOSPICE: HOSPICE: No HOSPICE EVAL & TREAT: No LTAC: ADMIT TO LTAC: No POST DISCHARGE ORDERS: ACTIVITY ORDERS: Activity as tolerated WEIGHT BEARING STATUS: As tolerated DIET AFTER DISCHARGE: Regular CHECKS AFTER DISCHARGE: CHECKS AFTER DISCHARGE: Check blood press - daily, Check your Temp as needed TREATMENT/EQUIPMENT ORDERS: ADAPTIVE EQUIPMENT NEEDED: None Physical Therapy For: Evalulation/Treatment Occupational Therapy For: Evaluation/Treatment Speech Language Pathology For: Evaluation/Treatment DISCHARGE MEDICATIONS: Home Meds Reported Medications Clonazepam (KLONOPIN) 0.5 Mg Tablet, 0.5 MG PO HS for restless leg syndrome, TAB 07/15/19 Hydrocodone Bit/Acetaminophen (HYDROCODONE-APAP 7.5-325 ) 1 Tab Tablet, 1 TAB PO PRN Q4HRS PRN for PAIN, TAB 0 Refills 12/27/18 Simvastatin (SIMVASTATIN) 40 Mg Tablet, 1 TAB PO QHS for hypercholesterolemia, #30 TAB 5 Refills 12/27/18 Ranitidine Hcl (RANITIDINE HCL) 150 Mg Tablet, 2 TAB PO HS for GERD, #180 TAB 3 Refills 12/27/18 Polyethylene Glycol 3350 (POLYETHYLENE GLYCOL 3350) 2,500 Gm Powder, 17 GM PO DAILY for constipation, #527 GM 11 Refills 12/27/18 Metoprolol Tartrate (METOPROLOL TARTRATE) 25 Mg Tablet, 1 TAB PO BID for HTN, #180 TAB 1 Refill 12/27/18 Losartan Potassium (LOSARTAN POTASSIUM) 50 Mg Tablet, 50 MG PO DAILY for HYPERTENSION, TAB 12/27/18 Gabapentin (GABAPENTIN) 600 Mg Tablet, 600 MG PO HS for NEUROGENIC PAIN, TAB 12/27/18 Gabapentin (GABAPENTIN ) 300 Mg Capsule, 300 MG PO BIDWBKFT/STIVEN for NEUROGENIC PAIN, CAP 12/27/18 Carbidopa/Levodopa (SINEMET 25-100 MG TABLET) 1 Each Tablet, 1 TAB PO BID for tremors, TAB 12/27/18 Discontinued Reported Medications Clonazepam (CLONAZEPAM ) 0.5 Mg Tablet, 1 TAB PO DAILYWSUP for restless leg syndrome, #30 TAB 12/27/18 CASTMEGHNA JACOBS III DO Jul 17, 2019 11:20
--- NOTE | 2019-07-17 13:22 | NUR ---
SS following up with discharge planning. Pt accepted at [facility], ; fax [phone]. Discharge orders received and faxed to [facility]. Pt will discharge today and go to [facility] at 1430 via [facility] transport, [id number]. Pt, pt's RN, and pt's DPOA notified.
[2019-07-17 13:26] VITALS: BP 134/63
--- NOTE | 2019-07-17 15:07 | PATHOLOGY ---
[facility] Accession Number: [id number] . 01 Material submitted: . esophagus - DISTAL ESOPHAGUS BIOPSY. Modifiers: distal . 01 Clinical history: . Abdomen pain Rule out Draper's . 02 Diagnosis: Esophageal biopsies, distal esophagus: - Segments of squamous esophageal mucosa showing focal epithelial necrosis, ulceration, and acute inflammation, consistent with ulcerative reflux esophagitis. (JPM:matthew; 07/17/2019) QMS 07/17/2019 1430 Local . 02 Comment: Sections of the distal esophageal biopsy reveal segments of squamous esophageal mucosa showing focal epithelial necrosis, ulceration, and acute inflammation. There are no viral inclusions identified. There is no evidence of Draper's change. There is no evidence of malignancy. The findings are consistent with ulerative reflux esophagitis (JPM:matthew;07/17/2019) . 02 Electronically signed: . Brayan Carlisle MD, Pathologist NPI- [id number] . 01 Gross description: . The specimen is received in formalin, labeled "Haresnape, Marol, distal esophagus BX" and consists of a few small fragments of zuniga tissue measuring up to 0.2 cm which are filtered through a biopsy bag and entirely submitted in A1. (SDY; 07/16/2019) SYU/SYU 07/16/2019 1609 Local . 02 Pathologist provided ICD-10: K22.10, K20.9 . 02 CPT . 341177 Specimen Comment: A courtesy copy of this report has been sent to Specimen Comment: [phone], , , . Specimen Comment: Report sent to ,DR CHAWLA,DR DA SILVA / DR PANTOJA Performed at: 01 [facility] [address], [place], [place] [id number] MD Francisco J Marte MD Phone: [phone] Performed at: 02 [facility] [address] [place], [place] [id number] MD Brayan Carlisle MD Phone: [phone]
--- NOTE | 2019-07-17 15:50 | NUR ---
Report given to Lora at [facility]. [facility] transportatuion took pt via wheelchar and transport van to facility this shift.
--- NOTE | 2019-07-18 08:44 | DS ---
DATE OF DISCHARGE: 07/17/2019 ADMISSION DIAGNOSES: Nausea, vomiting, abdominal pain, and constipation. DISCHARGE DIAGNOSIS: Resolving nausea and vomiting. HOSPITAL COURSE: The patient is a pleasant 88-year-old female who presented with nausea, vomiting, abdominal pain, and constipation. She was admitted. We consulted GI, did physical therapy and occupational therapy. Over the next few days, she returned to her baseline. Yesterday, we saw her and examined her. She agreed to go to long-term. We discharged to skilled. DISPOSITION: Skilled. ACTIVITY: As tolerated. DIET: Low sodium. MEDICATIONS: Please see the MRAD. TOTAL TIME: 32 minutes. MEGHNA BAUGH DO DR: CATARINO/go JOB#: [id number] / [id number]
== END 2019-07-17 14:40 | DRG 392 ==
LOC: ER 19:14 → 6 SOUTH 21:57 → 2 NORTH 07-15 00:42
PROVIDERS: ADMIT Internal Medicine; ATTEND Internal Medicine
PROC: 0DB28ZX Excision of Middle Esophagus, Via Natural or Artificial Opening Endoscopic, Diagnostic (ICD-10-PCS; principal; 2019-07-15 16:30)
DX: K21.0 Gastro-esophageal reflux disease with esophagitis (principal); I42.9 Cardiomyopathy, unspecified; K59.00 Constipation, unspecified; I48.91 Unspecified atrial fibrillation; E78.5 Hyperlipidemia, unspecified; E87.6 Hypokalemia; G20 Parkinson's disease; G25.81 Restless legs syndrome; G62.9 Polyneuropathy, unspecified; G89.29 Other chronic pain; I10 Essential (primary) hypertension; K29.70 Gastritis, unspecified, without bleeding; K31.7 Polyp of stomach and duodenum; Z83.3 Family history of diabetes mellitus; Z90.710 Acquired absence of both cervix and uterus; I95.9 Hypotension, unspecified; Z88.5 Allergy status to narcotic agent; Z88.2 Allergy status to sulfonamides; Z88.8 Allergy status to other drugs, medicaments and biological substances; Z90.49 Acquired absence of other specified parts of digestive tract; Z98.49 Cataract extraction status, unspecified eye
CPT/HCPCS: 36415; 43239; 74018; 74177; 80053; 80061; 81001; 83690; 83735; 84443; 84484; 85007; 85025; 88305; 93306; 96361; 96374; 96375; C9113; J2001; J2212; J2405; J2704; J3010; J3490; J7030; Q9967; 97110; 97116; 97530; 97535; 99285-25; G0378